=== PATIENT | female | born 1955 | race Caucasian/White ===

== ENCOUNTER 2018-01-15 16:42 | Inpatient (IN) ==
--- OUTSIDE RECORDS SUMMARY | 2018-01-15 17:12 | External Medical Summary | Encounter Summary ---
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) Radu Hankins MD Jewell, Andrea, MD Procedures bevacizumab (AVASTIN) [address] [place] [id number] Phone: Encounter Details Date Type Department Care Team Description 12/30/2017 [facility] - [address] [facility] [address] [facility] [address] [place] [address] [place] [address] [phone] Social History Tobacco Use Types Packs/Day Years Used Date Former Smoker Cigarettes 0.5 14 Quit: 05/01/2016 Smokeless Tobacco: Never Used Comments: Using nicorette Alcohol Use Drinks/Week oz/Week Comments No 0 Standard drinks or equivalent 0.0 Sex Assigned at Date Recorded Not on file as of this encounter Last Filed Vital Signs Vital Sign Reading Time Taken Blood Pressure 115/63 12/30/2017 11:06 AM CDT Pulse - - Temperature - - Respiratory Rate - - Oxygen Saturation - - Inhaled Oxygen Concentration - - Weight - - Height - - Body Mass Index - - in this encounter Functional Status Functional Status Response Date of Assessment Does the patient have a hearing impairment: No 07/04/2017 Does the patient have a visual impairment: Yes 07/04/2017 Does the patient have impaired ambulation: No 07/04/2017 Does the patient have an activity of daily living (ADL) No 07/04/2017 impairment: Does the patient have an instrumental activity of daily No 07/04/2017 living (IADL) impairment: Cognitive Status Response Date of Assessment Does the patient have a cognitive impairment: No 07/04/2017 as of this encounter Discharge Instructions Patient Instructions - Catherine Harper RN - 12/30/2017 11:22 AM CDTCall Immediately to report the following: Unexplained bleeding or bleeding that will not stop Difficulty swallowing Shortness of breath, wheezing, or trouble breathing Rapid, irregular heartbeat; chest pain Dizziness, lightheadedness Rash or cut that swells or turns red, feels hot or painful, or begin to ooze Diarrhea Uncontrolled nausea or vomiting Fever of 100.4 F or higher, or chills Important Phone Numbers: Cancer Center Main Number (answered 24 hours a day) [phone] Cancer Center Scheduling (appointments) [phone] Emergency Doctor [phone] Mobile Electronics Installer [phone] in this encounter Medications at Time of Discharge Medication Sig. Disp. Refills Start Date End Date amLODIPine (NORVASC) 5 mg Take 2 tablets by 90 tablet 1 09/02/2017 tabletIndications: mouth daily. At 1500 Malignant neoplasm of cervix, unspecified site (HCC) atenolol (TENORMIN) 50 mg Take 50 mg by mouth tablet daily. At 1500 clonazePAM (KLONOPIN) 0.5 Take 0.5 mg by mouth mg tablet twice daily as needed. dexamethasone (DECADRON) 4 Take 1 tablet by 30 tablet 5 07/15/2017 mg tabletIndications: mouth daily as Malignant neoplasm of needed. Take with exocervix (HCC) breakfast on Days 2 - 4 of each chemo cycle to prevent nausea/vomiting. diphenhydrAMINE/lidocaine/a Swish and Spit 30 mL 300 mL 0 07/15/2017 ntacid (#) (MAGIC by mouth as directed MOUTHWASH) 1:1:1 oral three times daily as suspensionIndications: needed for Mouth chemo-induced mucositis Pain. Indications: chemo-induced mucositis HYDROcodone/acetaminophen(+ Take 1 tablet by 90 tablet 0 11/04/2017 ) (NORCO) 10/325 mg mouth every 6 hours tabletIndications: as needed for Pain Malignant neoplasm of cervix, unspecified site (HCC) lidocaine-prilocaine (EMLA) Apply dime sized 30 g 3 07/14/2016 2.5-2.5 % topical cream amount topically to port 30 minutes prior to access. loperamide (IMODIUM A-D) 2 Take 2 mg by mouth mg capsule as Needed for Diarrhea. Take 2 capsules by mouth initially, followed by 1 capsule by mouth after each loose stool up to a maximum of 8 tablets in 24 hours. ondansetron (ZOFRAN) 8 mg Take 1 tablet by 30 tablet 5 07/15/2017 tabletIndications: mouth every 8 hours PREVENTION OF as needed for CHEMOTHERAPY-INDUCED NAUSEA Nausea. Indications: AND VOMITING PREVENTION OF CHEMOTHERAPY-INDUCED NAUSEA AND VOMITING prochlorperazine maleate Take 1 tablet by 60 tablet 5 07/15/2017 (COMPAZINE) 10 mg mouth every 6 hours tabletIndications: CANCER as needed for Nausea CHEMOTHERAPY-INDUCED NAUSEA or Vomiting. AND VOMITING Indications: CANCER CHEMOTHERAPY-INDUCED NAUSEA AND VOMITING ranitidine(+) (ZANTAC) 150 Take 150 mg by mouth mg tablet twice daily as needed for Heartburn. senna (SENOKOT) 8.6 mg Take 1-2 tablets by tablet mouth twice daily as needed for Constipation. THIOCTIC ACID (ALPHA LIPOIC Take 2 capsules by ACID(+)) 300 mg mouth twice daily. capIndications: PERIPHERAL Indications: NEUROPATHY PERIPHERAL NEUROPATHY traMADol (ULTRAM) 50 mg Take 2 tablets by 90 tablet 1 12/19/2017 tabletIndications: PAIN mouth every 6 hours as needed for Pain. as of this encounter Progress Notes Catherine Harper RN - 12/30/2017 10:41 AM CDTCHEMO NOTE Verified chemo consent signed and in chart. Verified initiate chemo order in O2 Blood return positive via: Port (Single and Accessed) BSA and dose double checked (agree with orders as written) with: yes Labs/applicable tests checked: UA Chemo regime: Drug/cycle/day Avastin IV C1 D1 Rate verified and armband double checkwith second RN: yes Patient education offered and stated understanding. Denies questions at this time. Port accessed per sterile technique, flushed with good blood return. Chemo consent signed on 09/23/17. Pt seen in exam by TYRELL Guillen, no new questions or concerns at this time. Pt has received avastin previously, is starting maintenance therapy. Pt tolerated avastin infusion without incident. Port flushed with good blood return and deaccessed. Pt denies need for AVS, left ambulatory at 1318.in this encounter Miscellaneous Notes Addendum Note - Radha Coffey - 12/30/2017 11:59 PM CDTEncounter addended by: Radha Coffey on: 01/06/2018 3:03 PM
Actions taken: Charge Capture section acceptedin this encounter Plan of Treatment Not on fileas of this encounter Results URINALYSIS DIPSTICK (12/30/2017 11:13 AM) Component Value Ref Range Color,UA YELLOW Turbidity,UA CLEAR CLEAR-CLEAR Specific Gilbert-Urine 1.015 1.003 - 1.035 pH,UA 5.0 5.0 - 8.0 Protein,UA 2+ (A) NEG-NEG Glucose,UA NEG NEG-NEG Ketones,UA NEG NEG-NEG Bilirubin,UA NEG NEG-NEG Blood,UA TRACE (A) NEG-NEG Urobilinogen,UA NORMAL NORM-NORMAL Nitrite,UA NEG NEG-NEG Leukocytes,UA TRACE (A) NEG-NEG Specimen Performing Laboratory Urine [facility] [address] [place] [address] in this encounter Visit Diagnoses Diagnosis Malignant neoplasm of exocervix (HCC) - Primary Malignant neoplasm of exocervix Administered Medications Inactive Administered Medications - up to 3 most recent administrations Medication Order MAR Action Action Date Dose Rate Site bevacizumab (AVASTIN) 850 mg Given - New Bag 12/30/2017 12:37 CDT 850 mg 268 mL/hr in sodium chloride 0.9% (NS) 134 mL IVPB 850 mg (rounded from 856.5 mg=15 mg/kg 57.1 kg Treatment plan recorded weight), Intravenous, 134 mL, Administer over 30 Minutes, ONCE, 1 dose, Tue12/30/17 at 1215, NOTE: This is a HIGH ALERT Medication. heparin lock flush PF syringe 500 Units Given 12/30/2017 13:15 CDT 500 Units 500 Units, Intravenous, ONCE, 1 dose, Tue12/30/17 at 1045, NOTE: This is a HIGH ALERT Medication. in this encounter
--- OUTSIDE RECORDS SUMMARY | 2018-01-15 17:12 | External Medical Summary | Encounter Summary ---
:1955 Author Organization [facility] Address [address] [place] [address] Care Team Providers Name Role Phone Lio Rios DO Primary Care Provider Encounter Details Date Type Department Care Team Description 12/20/2017 Orders Only XDD CANS VACUUM TESTER Radu Hankins MD [address] [place] [address] [phone] Social History Tobacco Use Types Packs/Day Years Used Date Former Smoker Cigarettes 0.5 14 Quit: 05/01/2016 Smokeless Tobacco: Never Used Comments: Using nicorette Alcohol Use Drinks/Week oz/Week Comments No 0 Standard drinks or equivalent 0.0 Sex Assigned at Date Recorded Not on file as of this encounter Functional Status Functional Status Response [...] impairment: No 07/04/2017 as of this encounter Plan of Treatment Not on fileas of this encounter Visit Diagnoses Not on filein this encounter
--- OUTSIDE RECORDS SUMMARY | 2018-01-15 17:12 | External Medical Summary | Encounter Summary ---
:1955 Author Organization [facility] Address [address] [place] [address] Care Team Providers Name Role Phone Lio Rios DO Primary Care Provider Reason for Visit Reason Comments Results Numbness Weakness Encounter Details Date Type Department Care Team Description 12/19/2017 [facility] Malignant neoplasm of cervix, unspecified site (HCC) (Primary Dx); [facility] Left foot drop; - WW Exam [address] Neurop[address] [place] [address] [phone] Social History Tobacco Use Types Packs/Day Years Used Date Former Smoker Cigarettes 0.5 14 Quit: 05/01/2016 Smokeless Tobacco: Never Used Comments: Using nicorette Alcohol Use Drinks/Week oz/Week Comments No 0 Standard drinks or equivalent 0.0 Sex Assigned at Date Recorded Not on file as of this encounter Last Filed Vital Signs Vital Sign Reading Time Taken Blood Pressure 165/65 12/19/2017 1:17 PM CDT Pulse 101 12/19/2017 1:17 PM CDT Temperature 36.6 C (97.8 F) 12/19/2017 1:17 PM CDT Respiratory Rate 16 12/19/2017 1:17 PM CDT Oxygen Saturation 100% 12/19/2017 1:17 PM CDT Inhaled Oxygen Concentration - - Weight 57.1 kg (125 lb 12.8 oz) 12/19/2017 1:17 PM CDT Height 162.6 cm (5' 4") 12/19/2017 1:17 PM CDT Body Mass Index 21.59 12/19/2017 1:17 PM CDT in this encounter Functional Status Functional Status [...] impairment: No 07/04/2017 as of this encounter Progress Notes Cesilia Ryan PA - 12/19/2017 1:00 PM CDTFormatting of this note may be different from the original. Subjective GYNECOLOGIC ONCOLOGY EVALUATION Name:Maryann Moreno Date: 12/19/17 Cancer Staging Cervical cancer (HCC) Staging form: Cervix Uteri, AJCC 7th Edition - Clinical: No stage assigned - Unsigned Referring Physician: Primary Care Physician: Lio Rios Chief Complaint: Chief Complaint Patient presents with Results Numbness Weakness History of Present Illness: Maryann Moreno is a 62 y.o. female Onc Timeline Maryann Moreno is a 62 y.o. female with Stage IVB cervical cancer. Pt is here for evaluation with Ct scan after six cycles of chemotherapy with Taxol, carbo and avastin. Pt continues to have mild left foot drop, effects her gait, numbness over the toes, B/L. Other shea no other symptoms. . Cervical cancer (HCC) 05/04/2016 Other c/o PMB and cramping for the last few weeks. Exam revealed spotting and enlarged uterus 05/11/2016 Imaging US impression multiple fibroids, endometrium not well seen, fluid measured 3mm , no adnexal masses are identified. 05/19/2016 Surgery Diagnostic D&C was preformed. Path revealed poorly differentiated carcinoma with squamous features, favor cervical primary over other sites. 05/24/2016 Biopsy Cervical biopsy taken in clinic. Path revealed high grade squamous intraepithelial neoplasia (focal severe squamous dysplasia in a background of mild to moderate dysplasia with koilocytosis, CIN1-3). No invasive neoplasm identified. Receiver Stocker Onc Dr. Olsen recommends radical hyst, BSO and pelvic lymphadenectomy vs pelvic radiation therapy. Patient left clinic to think about her options. 06/08/2016 Imaging .MRI - parametrial invasion, colleen mets and right anterior thight met PET CT - Extensive pelvic, retroperitoneal, retrocrural, and mediastinal lymphadenopathy.Anterior right thigh uptake. 06/09/2016 Initial Diagnosis Cervical cancer (HCC) 06/16/2016 Other Reviewed in tumor board: plan for cis/taxol/avastin followed by chemoradiation 2nd opinion at [facility] with similar recs for starting with systemic chemo. Did discuss carbo vs cisplatin and [facility] consider carbo Rather than cisplatin due to toxicity, but does not havea clinical efficiency preference of one over the other. 07/16/2016 - 10/29/2016 Chemotherapy cis/taxol/avastin C1 07/16/16, chemo complicated with mouth sores, completed C6 10/29/16 07/17/2016 Biopsy leg biopsy - Metastatic squamous cell carcinoma 09/16/2016 Imaging PET 09/16/16 - There has been significant improvement in FDG uptake in the cervix, now demonstrating a maximum SUV of 6.4, compared to 17.56 previously. There has also been significant interval improvement in size and FDG uptake involving retrocrural and several retroperitoneal lymph nodes, with resolution of additional retroperitoneal and pelvic lymph nodes. 11/30/2016 Imaging Recurrence #1: PET - recurrent retroperitoneal and retrocrural adenopathy with development of hypermetabolic lymph node to the left of the trachea at the level of the thoracic inlet concerning for regional and distant colleen metastatic disease, increased uptake in breast tissue 12/06/2016 - 01/27/2017 Radiation She went on to complete pelvic and para-aortic radiation to a dose of 45 Gy with boost to areas ofresidual colleen disease to 59 Gy. This was followed by tandem and ovoid brachytherapy (5.5 Gy x 5 fractions). She completed treatment on 01/27/17 07/22/2017 - 11/18/2017 Chemotherapy Taxol, carboplatin and Avastin, C1 on 07/22/2017, C2 on 08/12/2017, C3 on 09/02/2017, urine protein 2+, 24hr urine protein 238mg, C4 on 09/23/2017, C5 On ( taxol is held due to foot drop- subacute left peroneal neuropathy.There was no evidence that the weakness is related to a pelvic lesion or prior radiation exposure. Unclear if related to chemo. C6 on 11/18/2017 09/23/[address] - overall response 12/19/[address] scan- Unchanged left upper lobe pulmonary nodule since at least June 2016. This likely represents a noncalcified granuloma or scar. Continued attention on follow-up. No new pulmonary nodule is identified. Unchanged upper limits of normal sizeright hilar lymph node, which is likely reactive. No new thoracic lymphadenopathy. No abdominal/pelvic mass or lymphadenopathy. Chemotherapy Maintenance Avastin tentatively from 12/30/2017 Past Medical History: Past Medical History: Diagnosis Date Cervical cancer (HCC) Heartburn Hypertension Nausea related to radiation Past Surgical History: Past Surgical History: Procedure Laterality Date CHOLECYSTECTOMY BREAST REDUCTION 04/2016 CT INSERTION UTERINE TANDEM&/VAGINAL OVOIDS N/A 01/11/2017 BRACHYTHERAPY PELVIC ORGANS performed by Otis Tijreina MD at [facility]/Periop CT INSERTION UTERINE TANDEM&/VAGINAL OVOIDS N/A 01/27/2017 BRACHYTHERAPY TANDEM AND OVOID performed by Otis Tijerina MD at [facility]/ Periop CERVIX BIOPSY Medications: Current Outpatient Prescriptions: acyclovir (ZOVIRAX) 400 mg tablet, , Disp: , Rfl: 0 amLODIPine (NORVASC) 5 mg tablet, Take 2 tablets by mouth daily. At 1500 ( Patient taking differently: Take 7.5 mg by mouth daily. At 1400), Disp: 90 tablet, Rfl: 1 atenolol (TENORMIN) 50 mg tablet, Take 50 mg by mouth daily. At 1500, Disp : , Rfl: clonazePAM (KLONOPIN) 0.5 mg tablet, Take 0.5 mg by mouth at bedtime daily. , Disp: , Rfl: dexamethasone (DECADRON) 4 mg tablet, Take 1 tablet by mouth daily as needed. Take with breakfast on Days 2 - 4 of each chemo cycle to prevent nausea/ vomiting. (Patient taking differently: Take 4 mg by mouth. Take with breakfast on Days 2 - 4 of each chemo cycle to prevent nausea/vomiting.), Disp: 30 tablet , Rfl: 5 diphenhydrAMINE/lidocaine/antacid (#) (MAGIC MOUTHWASH) 1:1:1 oral suspension, Swish and Spit 30 mL by mouth as directed three times daily as needed for Mouth Pain. Indications: chemo-induced mucositis, Disp: 300 mL, Rfl: 0 HYDROcodone/acetaminophen(+) (NORCO) 10/325 mg tablet, Take 1 tablet by mouth every 6 hours as needed for Pain, Disp: 90 tablet, Rfl: 0 lidocaine-prilocaine (EMLA) 2.5-2.5 % topical cream, Apply dime sized amount topically to port 30 minutes prior to access., Disp: 30 g, Rfl: 3 loperamide (IMODIUM A-D) 2 mg capsule, Take 2 mg by mouth as Needed for Diarrhea. Take 2 capsules by mouth initially, followed by 1 capsule by mouth after each loose stool up to a maximum of 8 tablets in 24 hours., Disp: , Rfl: ondansetron (ZOFRAN) 8 mg tablet, Take 1 tablet by mouth every 8 hours as needed for Nausea. Indications: PREVENTION OF CHEMOTHERAPY-INDUCED NAUSEA AND VOMITING, Disp: 30 tablet, Rfl: 5 prochlorperazine maleate (COMPAZINE) 10 mg tablet, Take 1 tablet by mouth every 6 hours as needed for Nausea or Vomiting. Indications: CANCER CHEMOTHERAPY -INDUCED NAUSEA AND VOMITING, Disp: 60 tablet, Rfl: 5 ranitidine(+) (ZANTAC) 150 mg tablet, Take 150 mg by mouth twice daily as needed for Heartburn., Disp: , Rfl: senna (SENOKOT) 8.6 mg tablet, Take 1-2 tablets by mouth twice daily as needed for Constipation., Disp: , Rfl: THIOCTIC ACID (ALPHA LIPOIC ACID(+)) 300 mg cap, Take 2 capsules by mouth twice daily. Indications: PERIPHERAL NEUROPATHY, Disp: , Rfl: traMADol (ULTRAM) 50 mg tablet, Take 2 tablets by mouth every 6 hours as needed for Pain., Disp: 90 tablet, Rfl: 1 Allergies: Allergies Allergen Reactions Codeine SEE COMMENTS Pt states bad dreams and funny feeling Social History: Social History Social History Marital status: Single Spouse name: N/A Number of children: N/A Years of education: N/A Occupational History Not on file. Social History Main Topics Smoking status: Former Smoker Packs/day: 0.50 Years: 14.00 Types: Cigarettes Quit date: 05/01/2016 Smokeless tobacco: Never Used Comment: Using nicorette Alcohol use No Drug use: No Sexual activity: Not on file Other Topics Concern Not on file Social History Narrative No narrative on file Family History: Family History Problem Relation Age of Onset Cancer-Breast Sister 50 Ataxia Sister Hypertension Sister Cancer-Ovarian Maternal Grandmother Hypertension Mother Hypertension Father REVIEW OF SYSTEMS: CONSTITUTIONAL: per HPI EYES: per HPI ENT: per HPI RESPIRATORY: per HPI CARDIOVASCULAR: per HPI GI: per HPI : per HPI MUSCULO-SKELETAL: per HPI SKIN: per HPI ENDOCRINE: per HPI HEMATOLOGIC: per HPI ECOG 1 Pain Addressed:Prescription provided for pain management Physical Exam: BP 165/65 (BP Source: Arm, Left, Patient Position: Sitting) | Pulse 101 | Temp 36.6 C (97.8 F)(Oral) | Resp 16 | Ht 162.6 cm (64") | Wt 57.1 kg ( 125 lb 12.8 oz) | SpO2 100% | BMI 21.59 kg/m GENERAL APPEARANCE: Appears healthy. Alert; in no acute distress. Pleasant. SKIN: Skin color, texture, turgor normal. No rashes or lesions. HEENT: Unremarkable. No tenderness or masses noted. NECK: Neck supple. No tenderness. No adenopathy. LUNGS: Chest symmetrical. Good diaphragmatic excursion. Lungs clear; normal breath sounds. CARDIOVASCULAR: RRR. Heart sounds normal. ABDOMEN: Abdomen soft, non-tender. No masses, organomegaly, or hernia. No clinical evidence of ascites. PELVIC: External genitalia- no lesions seen, urethral meatus, urethra, bladder normal. Vagina-with out lesions ,masses or bleeding. Cervix- anterior lip seen due to vaginal wall agglutination, with out lesions, uterus normal size, adnexae not palpable. Bimanual and rectovaginal exam without massesor nodularity on the pelvic floor Exam chaperoned by nurse EXTREMITIES: Extremities - no extension of th efirst toe on the left foot, No joint deformities, edema, or skin discoloration. LYMPH NODES: No palpable supraclavicular or inguinal lymph nodes. CBC w/Diff Lab Results Component Value Date/Time WBC 7.9 12/19/2017 09:40 AM RBC 3.16 (L) 12/19/2017 09:40 AM HGB 12.3 12/19/2017 09:40 AM HCT 34.5 (L) 12/19/2017 09:40 AM MCV 109.3 (H) 12/19/2017 09:40 AM MCH 39.1 (H) 12/19/2017 09:40 AM MCHC 35.8 12/19/2017 09:40 AM RDW 13.9 12/19/2017 09:40 AM PLTCT 161 12/19/2017 09:40 AM MPV 7.5 12/19/2017 09:40 AM Lab Results Component Value Date/Time NEUT 74 12/19/2017 09:40 AM ANC 5.90 12/19/2017 09:40 AM LYMA 14 (L) 12/19/2017 09:40 AM ALC 1.10 12/19/2017 09:40 AM KARAN 9 12/19/2017 09:40 AM AMC 0.70 12/19/2017 09:40 AM EOSA 2 12/19/2017 09:40 AM AEC 0.10 12/19/2017 09:40 AM BASA 1 12/19/2017 09:40 AM ABC 0.10 12/19/2017 09:40 AM Comprehensive Metabolic Profile Lab Results Component Value Date/Time NA 137 12/19/2017 09:40 AM K 3.3 (L) 12/19/2017 09:40 AM CL 104 12/19/2017 09:40 AM CO2 26 12/19/2017 09:40 AM GAP 7 12/19/2017 09:40 AM BUN 12 12/19/2017 09:40 AM CR 0.75 12/19/2017 09:40 AM GLU 160 (H) 12/19/2017 09:40 AM Lab Results Component Value Date/Time CA 9.4 12/19/2017 09:40 AM ALBUMIN 4.0 12/19/2017 09:40 AM TOTPROT 6.7 12/19/2017 09:40 AM ALKPHOS 100 12/19/2017 09:40 AM AST 12 12/19/2017 09:40 AM ALT 6 (L) 12/19/2017 09:40 AM TOTBILI 0.2 (L) 12/19/2017 09:40 AM GFR >60 12/19/2017 09:40 AM GFRAA >60 12/19/2017 09:40 AM Other labs No results found for: ESR No results found for: LDH ASSESSMENT/PLAN:Maryann Moreno is a 62 y/o woman with recurrent, Stage IV B cervical cancer. No evidence of disease on exam, Ct scan, at th e end of six cycle of chemotherapy. Vaginal wall agglutination- recommended she use vaginal dilators 2-3 times a wk. Reviewed labs with her and a copy given to her. Discussed Ct scan and answered all her questions Hypokalemia- encouraged her to increase potassium rich foods in diet and use gatorade Pt needs dental work done , recommendations that she should schedule it just before a cycle. she lives 2 and half hrs but still interested to come here for treatments. Pt likes to do urine dipstick locally so that we can decide if she can get treatment, otherwise she will be travelling for nothing, orders for urine dipstick given to her Monitor for signs of recurrence, abdominal bloating, pain, pelvic pain, nausea and vomiting, bleeding from vagina, blood in the stool or urine, irregular bowel movement. Discussed healthy life style, whole grain foods and whole foods and five servings of fruits and vegetables. Exercise-Intentional exercise, 30mt/day for 5 days a wk. Update on immunization Screening for breast cancer with MMG, colon cancer with colonoscopy, osteoporosis with bone density. Regular f/u with PCP RV prior to C1 avastin on 12/30/2017(pt is going on vacation for 1 wk and likes start after it.) repeat CBC and CMP prior to C1 Thank you for allowing me to participate in the care of Maryann Ryan, MS,PA-C Supervising physician: Dr. Radu Hankins Gynecology Oncology [facility] [address] [place] [address] Nurse line: [phone] in this encounter Plan of Treatment Scheduled Tests Name Priority Associated Diagnoses Order Schedule URINALYSIS DIPSTICK Routine Malignant neoplasm of Every 3 weeks for 12 cervix, unspecified site Occurrences starting ([facility]) 12/19/2017 until 12/19/2018 COMPREHENSIVE METABOLIC Routine Malignant neoplasm of Expected: 12/19/2017 PANEL cervix, unspecified site (Approximate), Expires: ([facility]) 12/19/2018 CBC AND DIFF Routine Malignant neoplasm of Expected: 12/19/2017 cervix, unspecified site (Approximate), Expires: ([facility]) 12/19/2018 as of this encounter Visit Diagnoses Diagnosis Malignant neoplasm of cervix, unspecified site ([facility]) - Primary Left foot drop Other acquired deformity of ankle and foot Neuropathy Mononeuritis of unspecified site
--- OUTSIDE RECORDS SUMMARY | 2018-01-15 17:12 | External Medical Summary | Clinical Summary ---
:1955 Author Organization [facility] Address [address] [place] [address] Care Team Providers Name Role Phone Lio Rios DO Primary Care Provider Source Comments Some departments are not documenting in the electronic medical record. If you do not see the information that you expected, contact Release of Information in the Health Information Management department at [phone] for further assistance in locating additional records.[facility] Allergies Active Allergy Reactions Severity Noted Date Comments Codeine SEE COMMENTS Low 07/09/2016 Pt states bad dreams and funny feeling Current Medications Prescription Sig. Disp. Refills Start Date End Date Status atenolol (TENORMIN) Take 50 mg by Active 50 mg tablet mouth daily. At 1500 clonazePAM (KLONOPIN) Take 0.5 mg by Active 0.5 mg tablet mouth twice daily as needed. lidocaine-prilocaine Apply dime 30 g 3 07/14/2016 Active (EMLA) 2.5-2.5 % sized amount topical cream topically to port 30 minutes prior to access. senna (SENOKOT) 8.6 Take 1-2 Active mg tablet tablets by mouth twice daily as needed for Constipation. ranitidine(+) Take 150 mg by Active (ZANTAC) 150 mg mouth twice tablet daily as needed for Heartburn. loperamide (IMODIUM Take 2 mg by Active A-D) 2 mg capsule mouth as Needed for Diarrhea. Take 2 capsules by mouth initially, followed by 1 capsule by mouth after each loose stool up to a maximum of 8 tablets in 24 hours. THIOCTIC ACID (ALPHA Take 2 capsules Active LIPOIC ACID(+)) 300 by mouth twice mg capIndications: daily. PERIPHERAL NEUROPATHY Indications: PERIPHERAL NEUROPATHY dexamethasone Take 1 tablet 30 tablet 5 07/15/2017 Active (DECADRON) 4 mg by mouth daily tabletIndications: as needed. Take Malignant neoplasm of with breakfast exocervix (HCC) on Days 2 - 4 of each chemo cycle to prevent nausea/vomiting . prochlorperazine Take 1 tablet 60 tablet 5 07/15/2017 Active maleate (COMPAZINE) by mouth every 10 mg 6 hours as tabletIndications: needed for CANCER Nausea or CHEMOTHERAPY-INDUCED Vomiting. NAUSEA AND VOMITING Indications: CANCER CHEMOTHERAPY-IN DUCED NAUSEA AND VOMITING ondansetron (ZOFRAN) Take 1 tablet 30 tablet 5 07/15/2017 Active 8 mg by mouth every tabletIndications: 8 hours as PREVENTION OF needed for CHEMOTHERAPY-INDUCED Nausea. NAUSEA AND VOMITING Indications: PREVENTION OF CHEMOTHERAPY-IN DUCED NAUSEA AND VOMITING diphenhydrAMINE/lidoc Swish and Spit 300 mL 0 07/15/2017 Active anjali/antacid (#) 30 mL by mouth (MAGIC MOUTHWASH) as directed 1:1:1 oral three times suspensionIndications daily as needed : chemo-induced for Mouth Pain. mucositis Indications: chemo-induced mucositis amLODIPine (NORVASC) Take 2 tablets 90 tablet 1 09/02/2017 Active 5 mg by mouth daily. tabletIndications: At 1500 Malignant neoplasm of cervix, unspecified site (HCC) HYDROcodone/acetamino Take 1 tablet 90 tablet 0 11/04/2017 Active phen(+) (NORCO) by mouth every 10/325 mg 6 hours as tabletIndications: needed for Pain Malignant neoplasm of cervix, unspecified site (HCC) traMADol (ULTRAM) 50 Take 2 tablets 90 tablet 1 12/19/2017 Active mg tabletIndications: by mouth every PAIN 6 hours as needed for Pain. acyclovir (ZOVIRAX) 0 10/27/2017 12/31/19 Discontinued 400 mg tablet 18 traMADol (ULTRAM) 50 Take 2 tablets 90 tablet 0 12/14/2017 12/20/19 Discontinued mg tabletIndications: by mouth every 18 PAIN 6 hours as needed for Pain. Active Problems Problem Noted Date Slow transit constipation 08/06/2016 Neuropathy 08/06/2016 Cervical cancer (HCC) 06/09/2016 Overview: History of Present Illness: Maryann Moreno is a 61 y.o. female with Stage IVB cervical cancer. 05/04/16 patient presented to [facility] c/o PMB and cramping for the last few weeks. Exam revealed spotting and enlarged uterus. 05/11/16 US impression multiple fibroids, endometrium not well seen, fluid measured 3mm, no adnexal masses are identified. 05/11/16 f/u with [facility]. Discussed need for biopsy and treatment for fibroids including possible hyst and BSO. Patient not in favor of 2 procedure so a RALH/BSO scheduled with frozen D&C. 05/19/16 Diagnostic D&C was preformed. Path revealed poorly differentiated carcinoma with squamous features, favor cervical primary over other sites. 05/24/16 patient referred to [facility]. Cervical biopsy taken in clinic. Path revealed high grade squamous intraepithelial neoplasia (focal severe squamous dysplasia in a background of mild to moderate dysplasia with koilocytosis, CIN1-3). No invasive neoplasm identified. [facility]. Olsen recommends radical hyst, BSO and pelvic lymphadenectomy vs pelvic radiation therapy. Patient left clinic to think about her options. MRI 06/08/16 - parametrial invasion, colleen mets and right anterior thight met PET CT - Extensive pelvic, retroperitoneal, retrocrural, and mediastinal lymphadenopathy Reviewed in tumor board: plan for cis/taxol/avastin followed by chemoradiation. Presents 10/29/16 prior to C6D1 of Cisplatin, Taxol and Avastin chemotherapy. Labs reviewed and exam performed. Will need appointment with Dr. Tijerina for radiation therapy. CT C/A/P with lydia aldana at tumor board for possible Rad/Hyst vs. chemoradiation. Last Assessment & Plan: 1. Ms. Moreno is a 61 yo female with stage IVB cervical cancer. 2. Presents prior to C6 of Cisplatin/Taxol/Avastin. 3. Exam and labs today. Proceed with treatment. 4. Plan is to repeat CT C/A/P 11/10/16 and present case to tumor board . Will notify of results. 5. Rad/onc referral for the week of 11/15/16. Aware this is tentative and we can cancel if decision is for rad/hyst. 6. Call/RTC pending tumor board discussion. Resolved Problems Problem Noted Date Resolved Date Hematuria 08/06/2016 12/19/2017 Encounters Date Type Specialty Care Team Description 12/30/2017 Hospital Encounter Oncology Cesilia Ryan PA 12/30/2017 Office Visit Oncology Cesilia Ryan PA Malignant neoplasm of cervix, unspecified site (HCC) (Primary Dx) 12/20/2017 Orders Only Radu Hankins MD 12/19/2017 Office Visit Oncology Cesilia Ryan PA Malignant neoplasm of cervix, unspecified site (HCC) (Primary Dx); Left foot drop; Neuropathy 12/19/2017 Hospital Encounter Radiology Radu Hankins MD 12/19/2017 Hospital Encounter Radiology Cesilia Ryan PA 12/14/2017 Refill Oncology Radu Hankins MD Malignant neoplasm of cervix, unspecified site (HCC) 11/18/2017 Hospital Encounter Oncology Radu Hankins MD 11/18/2017 Hospital Encounter Lab Radu Hankins MD 11/17/2017 Telephone Oncology Radu Hankins MD Results (labs) 11/14/2017 Orders Only Oncology Radu Hankins MD 11/11/2017 Telephone Oncology Radu Hankins MD Appointment Request 11/10/2017 Procedure Pass Radiology 11/10/2017 Procedure Pass Radiology 11/10/2017 Orders Only Oncology Radu Hankins MD Malignant neoplasm of cervix, unspecified site (HCC) (Primary Dx) 11/10/2017 Telephone Oncology Radu Hankins MD Results (platelet count) 11/10/2017 Telephone Neurology Farmakidis, General Question MD Eliceo 11/09/2017 Telephone Oncology Radu Hankins MD Medication Refill (needs tramadol sent to pharmacy) 11/04/2017 Office Visit Oncology Radu Hankins MD Malignant neoplasm of cervix, unspecified site (HCC) (Primary Dx) 11/04/2017 Nurse Only Oncology Radu Hankins MD Malignant neoplasm of exocervix (HCC) (Primary Dx) 11/04/2017 Telephone Oncology Radu Hankins MD Heme/Onc Care (left without getting pot deaccessed) 11/01/2017 Orders Only Oncology Karly Zuluaga, PHARMD 10/31/2017 Orders Only Oncology Radu Hankins MD 10/27/2017 Telephone Oncology Radu Hankins MD Medication Refill 10/21/2017 Clinical Support Neurology Lashaun, Neuropathy (HCC); MD Eliceo Left foot drop 10/21/2017 Office Visit Neurology Radu Hankins MD History of left foot drop (Primary Dx); Lashaun, Neuropathy (HCC); MD Eliceo Malignant neoplasm of exocervix (HCC) 10/20/2017 Documentation Oncology Opat, Angelica 10/19/2017 Documentation Oncology Opat, Angelica from Last 3 Months Family History Medical History Relation Name Comments Hypertension Father Cancer-Ovarian Maternal Grandmother Hypertension Mother Ataxia Sister Cancer-Breast Sister Hypertension Sister Relation Name Status Comments Father Maternal Grandmother Mother Sister breast Social History Tobacco Use Types Packs/Day Years Used Date Former Smoker Cigarettes 0.5 14 Quit: 05/01/2016 Smokeless Tobacco: Never Used Tobacco Cessation: Ready to Quit: Yes Comments: Using nicorette Alcohol Use Drinks/Week oz/Week Comments No 0 Standard drinks or equivalent 0.0 Sex Assigned at Date Recorded Not on file Last Filed Vital Signs Vital Sign Reading Time Taken Blood Pressure 115/63 12/30/2017 11:06 AM CDT Pulse 78 12/30/2017 9:35 AM CDT Temperature 36.4 C (97.5 F) 12/30/2017 9:35 AM CDT Respiratory Rate 16 12/30/2017 9:35 AM CDT Oxygen Saturation 100% 12/30/2017 9:35 AM CDT Inhaled Oxygen Concentration - - Weight 56.3 kg (124 lb 3.2 oz) 12/30/2017 9:35 AM CDT Height 166.4 cm (5' 5.5") 12/30/2017 9:35 AM CDT Body Mass Index 20.35 12/30/2017 9:35 AM CDT Plan of Treatment Health Maintenance Due Date Last Done Comments HEPATITIS C SCREENING 1955 PHYSICAL (COMPREHENSIVE) EXAM 12/31/1962 PERTUSSIS VACCINE 12/31/1966 HIV SCREENING 12/31/1970 TETANUS VACCINE 12/31/1972 CERVICAL CANCER SCREENING 12/31/1985 BREAST CANCER SCREENING 1996 COLORECTAL CANCER SCREENING 12/31/2005 SHINGLES VACCINE 2016 INFLUENZA VACCINE 05/01/2018 Implants Implanted Type Area [employer] Of [employer] Device Identifier Expiration Model / Date Serial / Lot Port Pwkeshva Salazar 8fr Sngl Lumn Cath - S. Right: CR BARD:ACCESS [id number] 06/28/2017 [id number] / Implanted: Qty: 1 on 07/08/2016 by Howard Waterman MD Chest SYS . / [id number] Results URINALYSIS DIPSTICK (12/30/2017 11:13 AM)Only the most recent of3 resultswithin the time period is included. Component Value Ref Range Color,UA YELLOW Turbidity,UA CLEAR CLEAR-CLEAR Specific [place]-Urine 1.015 1.003 - 1.035 pH,UA 5.0 5.0 - 8.0 Protein,UA 2+ (A) NEG-NEG Glucose,UA NEG NEG-NEG Ketones,UA NEG NEG-NEG Bilirubin,UA NEG NEG-NEG Blood,UA TRACE (A) NEG-NEG Urobilinogen,UA NORMAL NORM-NORMAL Nitrite,UA NEG NEG-NEG Leukocytes,UA TRACE (A) NEG-NEG Specimen Performing Laboratory Urine [facility] [address] [place] [address] CT ABD/PELV W CONTRAST (12/19/2017 10:09 AM) Specimen Performing Laboratory [facility] RESULTS Impressions CHEST: 1. Unchanged left upper lobe pulmonary nodule since at least June 2016. This likely represents a noncalcified granuloma or scar. Continued attention on follow-up. No new pulmonary nodule is identified. 2. Unchanged upper limits of normal size right hilar lymph node, which is likely reactive. No new thoracic lymphadenopathy. 3. Mild emphysema. ABDOMEN AND PELVIS: No abdominal/pelvic mass or lymphadenopathy. By my electronic signature, I attest that I have personally reviewed the images for this examination and formulated the interpretations and opinions expressed in this report Finalized by Benito Thorpe D.O. on 12/19/2017 11:38 AM. Dictated by Daryl Stephens M.D. on 12/19/2017 10:[address] CHEST, ABDOMEN AND PELVIS Clinical Indication:Female, 62 years old. Malignant neoplasm of cervix, unspecified site. Technique: Multiple contiguous axial images were obtained through the chest, abdomen and pelvis following the administration of IV contrast material. Portal venous phase of postcontrast imaging was obtained. Post processing coronal and sagittal reconstruction images were made from the axial images. IV contrast: Isovue-370 Bowel contrast:Water Comparison: CT chest, abdomen/pelvis could very 2017 CHEST FINDINGS: Lower Neck: Unchanged low-density lesion in the left lobe of thyroid. Additional tiny low density lesions are noted within the right lobe of thyroid. Axilla, Mediastinum and Desi: Unchanged upper limits of normal size right hilar lymph node. No new or enlarging thoracic lymph nodes. Heart and Great Vessels: Heart is normal in size without pericardial effusion. Thoracic aorta is normal in caliber. Right IJ chest port in unchanged position. Airway, Lungs and Pleura: Central airways are patent. Mild emphysema. Unchanged left upper lobe pulmonary nodule measuring 0.8 cm (series 2 image 27), previously 0.8 cm. Calcified granuloma in the right middle lobe. No pleural effusion. No new or enlarging pulmonary nodules identified Chest Wall and Osseous Structures: Thoracic spondylosis. No destructive osseous lesion. ABDOMEN AND PELVIS FINDINGS: Liver and Biliary system: Liver is normal in size. Scattered low-density lesions throughout the right hepatic lobe, which are too small to characterize. Major portal veins are patent. Gallbladder surgically absent. Mild to moderate intra and extrahepatic biliary ductal dilation is redemonstrated and is not significantly changed from the prior study. Spleen: Unremarkable. Adrenal Glands and Kidneys: Adrenal glands and left kidney are unremarkable. Scattered right renal cortical scarring. Pancreas and Retroperitoneum: Moderate pancreatic atrophy. No retroperitoneal lymphadenopathy. Stable stranding within the central retroperitoneum likely representing post therapeutic scarring and sites of treated colleen metastatic disease. Aorta and Major Vessels: Abdominal aorta is normal in caliber with mild aortobiiliac calcified atherosclerosis. Bowel, Mesentery and Peritoneal space: Large and small bowel are normal in caliber. No bowel obstruction. No abdominal ascites. No free air. Pelvis: Urinary bladder is mildly distended. Uterus is atrophic with calcified uterine fibroids. No pelvic lymphadenopathy. Abdominal wall and Osseous Structures: Lumbar spondylosis with grade 1 anterolisthesis of L4 on L5. No destructive osseous lesion. Procedure Note Interface, Radiant Results - 12/19/2017 11:[address] CHEST, ABDOMEN AND PELVIS Clinical Indication: Female, 62 years old. Malignant neoplasm of cervix, unspecified site. Technique: Multiple contiguous axial images were obtained through the chest, abdomen and pelvis following the administration of IV contrast material. Portal venous phase of postcontrast imaging was obtained. Post processing coronal and sagittal reconstruction images were made from the axial images. IV contrast: Isovue-370 Bowel contrast: Water Comparison: CT chest, abdomen/pelvis could very 2017 CHEST FINDINGS: Lower Neck: Unchanged low-density lesion in the left lobe of thyroid. Additional tiny low density lesions are noted within the right lobe of thyroid. Axilla, Mediastinum and Desi: Unchanged upper limits of normal size right hilar lymph node. No new or enlarging thoracic lymph nodes. Heart and Great Vessels: Heart is normal in size without pericardial effusion. Thoracic aorta is normal in caliber. Right IJ chest port in unchanged position. Airway, Lungs and Pleura: Central airways are patent. Mild emphysema. Unchanged left upper lobe pulmonary nodule measuring 0.8 cm (series 2 image 27) , previously 0.8 cm. Calcified granuloma in the right middle lobe. No pleural effusion. No new or enlarging pulmonary nodules identified Chest Wall and Osseous Structures: Thoracic spondylosis. No destructive osseous lesion. ABDOMEN AND PELVIS FINDINGS: Liver and Biliary system: Liver is normal in size. Scattered low-density lesions throughout the right hepatic lobe, which are too small to characterize. Major portal veins are patent. Gallbladder surgically absent. Mild to moderate intra and extrahepatic biliary ductal dilation is redemonstrated and is not significantly changed from the prior study. Spleen: Unremarkable. Adrenal Glands and Kidneys: Adrenal glands and left kidney are unremarkable. Scattered right renal cortical scarring. Pancreas and Retroperitoneum: Moderate pancreatic atrophy. No retroperitoneal lymphadenopathy. Stable stranding within the central retroperitoneum likely representing post therapeutic scarring and sites of treated colleen metastatic disease. Aorta and Major Vessels: Abdominal aorta is normal in caliber with mild aortobiiliac calcified atherosclerosis. Bowel, Mesentery and Peritoneal space: Large and small bowel are normal in caliber. No bowel obstruction. No abdominal ascites. No free air. Pelvis: Urinary bladder is mildly distended. Uterus is atrophic with calcified uterine fibroids. No pelvic lymphadenopathy. Abdominal wall and Osseous Structures: Lumbar spondylosis with grade 1 anterolisthesis of L4 on L5. No destructive osseous lesion. IMPRESSION CHEST: 1. Unchanged left upper lobe pulmonary nodule since at least June 2016. This likely represents a noncalcified granuloma or scar. Continued attention on follow-up. No new pulmonary nodule is identified. 2. Unchanged upper limits of normal size right hilar lymph node, which is likely reactive. No new thoracic lymphadenopathy. 3. Mild emphysema. ABDOMEN AND PELVIS: No abdominal/pelvic mass or lymphadenopathy. By my electronic signature, I attest that I have personally reviewed the images for this examination and formulated the interpretations and opinions expressed in this report Finalized by Benito Thorpe D.O. on 12/19/2017 11:38 AM. Dictated by Daryl Stephens M.D. on 12/19/2017 10:[address] CHEST W CONTRAST (12/19/2017 10:09 AM) Specimen Performing Laboratory [facility] RESULTS Impressions CHEST: 1. Unchanged left upper lobe pulmonary nodule since at least June 2016. This likely represents a noncalcified granuloma or scar. Continued attention on follow-up. No new pulmonary nodule is identified. 2. Unchanged upper limits of normal size right hilar lymph node, which is likely reactive. No new thoracic lymphadenopathy. 3. Mild emphysema. ABDOMEN AND PELVIS: No abdominal/pelvic mass or lymphadenopathy. By my electronic signature, I attest that I have personally reviewed the images for this examination and formulated the interpretations and opinions expressed in this report Finalized by Benito Thorpe D.O. on 12/19/2017 11:38 AM. Dictated by Daryl Stephens M.D. on 12/19/2017 10:[address] CHEST, ABDOMEN AND PELVIS Clinical Indication:Female, 62 years old. Malignant neoplasm of cervix, unspecified site. Technique: Multiple contiguous axial images were obtained through the chest, abdomen and pelvis following the administration of IV contrast material. Portal venous phase of postcontrast imaging was obtained. Post processing coronal and sagittal reconstruction images were made from the axial images. IV contrast: Isovue-370 Bowel contrast:Water Comparison: CT chest, abdomen/pelvis could very 2017 CHEST FINDINGS: Lower Neck: Unchanged low-density lesion in the left lobe of thyroid. Additional tiny low density lesions are noted within the right lobe of thyroid. Axilla, Mediastinum and Desi: Unchanged upper limits of normal size right hilar lymph node. No new or enlarging thoracic lymph nodes. Heart and Great Vessels: Heart is normal in size without pericardial effusion. Thoracic aorta is normal in caliber. Right IJ chest port in unchanged position. Airway, Lungs and Pleura: Central airways are patent. Mild emphysema. Unchanged left upper lobe pulmonary nodule measuring 0.8 cm (series 2 image 27), previously 0.8 cm. Calcified granuloma in the right middle lobe. No pleural effusion. No new or enlarging pulmonary nodules identified Chest Wall and Osseous Structures: Thoracic spondylosis. No destructive osseous lesion. ABDOMEN AND PELVIS FINDINGS: Liver and Biliary system: Liver is normal in size. Scattered low-density lesions throughout the right hepatic lobe, which are too small to characterize. Major portal veins are patent. Gallbladder surgically absent. Mild to moderate intra and extrahepatic biliary ductal dilation is redemonstrated and is not significantly changed from the prior study. Spleen: Unremarkable. Adrenal Glands and Kidneys: Adrenal glands and left kidney are unremarkable. Scattered right renal cortical scarring. Pancreas and Retroperitoneum: Moderate pancreatic atrophy. No retroperitoneal lymphadenopathy. Stable stranding within the central retroperitoneum likely representing post therapeutic scarring and sites of treated colleen metastatic disease. Aorta and Major Vessels: Abdominal aorta is normal in caliber with mild aortobiiliac calcified atherosclerosis. Bowel, Mesentery and Peritoneal space: Large and small bowel are normal in caliber. No bowel obstruction. No abdominal ascites. No free air. Pelvis: Urinary bladder is mildly distended. Uterus is atrophic with calcified uterine fibroids. No pelvic lymphadenopathy. Abdominal wall and Osseous Structures: Lumbar spondylosis with grade 1 anterolisthesis of L4 on L5. No destructive osseous lesion. Procedure Note Interface, Radiant Results - 12/19/2017 11:[address] CHEST, ABDOMEN AND PELVIS Clinical Indication: Female, 62 years old. Malignant neoplasm of cervix, unspecified site. Technique: Multiple contiguous axial images were obtained through the chest, abdomen and pelvis following the administration of IV contrast material. Portal venous phase of postcontrast imaging was obtained. Post processing coronal and sagittal reconstruction images were made from the axial images. IV contrast: Isovue-370 Bowel contrast: Water Comparison: CT chest, abdomen/pelvis could very 2017 CHEST FINDINGS: Lower Neck: Unchanged low-density lesion in the left lobe of thyroid. Additional tiny low density lesions are noted within the right lobe of thyroid. Axilla, Mediastinum and Desi: Unchanged upper limits of normal size right hilar lymph node. No new or enlarging thoracic lymph nodes. Heart and Great Vessels: Heart is normal in size without pericardial effusion. Thoracic aorta is normal in caliber. Right IJ chest port in unchanged position. Airway, Lungs and Pleura: Central airways are patent. Mild emphysema. Unchanged left upper lobe pulmonary nodule measuring 0.8 cm (series 2 image 27) , previously 0.8 cm. Calcified granuloma in the right middle lobe. No pleural effusion. No new or enlarging pulmonary nodules identified Chest Wall and Osseous Structures: Thoracic spondylosis. No destructive osseous lesion. ABDOMEN AND PELVIS FINDINGS: Liver and Biliary system: Liver is normal in size. Scattered low-density lesions throughout the right hepatic lobe, which are too small to characterize. Major portal veins are patent. Gallbladder surgically absent. Mild to moderate intra and extrahepatic biliary ductal dilation is redemonstrated and is not significantly changed from the prior study. Spleen: Unremarkable. Adrenal Glands and Kidneys: Adrenal glands and left kidney are unremarkable. Scattered right renal cortical scarring. Pancreas and Retroperitoneum: Moderate pancreatic atrophy. No retroperitoneal lymphadenopathy. Stable stranding within the central retroperitoneum likely representing post therapeutic scarring and sites of treated colleen metastatic disease. Aorta and Major Vessels: Abdominal aorta is normal in caliber with mild aortobiiliac calcified atherosclerosis. Bowel, Mesentery and Peritoneal space: Large and small bowel are normal in caliber. No bowel obstruction. No abdominal ascites. No free air. Pelvis: Urinary bladder is mildly distended. Uterus is atrophic with calcified uterine fibroids. No pelvic lymphadenopathy. Abdominal wall and Osseous Structures: Lumbar spondylosis with grade 1 anterolisthesis of L4 on L5. No destructive osseous lesion. IMPRESSION CHEST: 1. Unchanged left upper lobe pulmonary nodule since at least June 2016. This likely represents a noncalcified granuloma or scar. Continued attention on follow-up. No new pulmonary nodule is identified. 2. Unchanged upper limits of normal size right hilar lymph node, which is likely reactive. No new thoracic lymphadenopathy. 3. Mild emphysema. ABDOMEN AND PELVIS: No abdominal/pelvic mass or lymphadenopathy. By my electronic signature, I attest that I have personally reviewed the images for this examination and formulated the interpretations and opinions expressed in this report Finalized by Benito Thorpe D.O. on 12/19/2017 11:38 AM. Dictated by Daryl Stephens M.D. on 12/19/2017 10:21 AM. CBC AND DIFF (12/19/2017 9:40 AM)Only the most recent of3 resultswithin the time period is included. Component Value Ref Range White Blood Cells 7.9 4.5 - 11.0 K/UL RBC 3.16 (L) 4.0 - 5.0 M/UL Hemoglobin 12.3 12.0 - 15.0 GM/DL Hematocrit 34.5 (L) 36 - 45 % MCV 109.3 (H) 80 - 100 FL MCH 39.1 (H) 26 - 34 PG MCHC 35.8 32.0 - 36.0 G/DL RDW 13.9 11 - 15 % Platelet Count 161 150 - 400 K/UL MPV 7.5 7 - 11 FL Neutrophils 74 41 - 77 % Lymphocytes 14 (L) 24 - 44 % Monocytes 9 4 - 12 % Eosinophils 2 0 - 5 % Basophils 1 0 - 2 % Absolute Neutrophil Count 5.90 1.8 - 7.0 K/UL Absolute Lymph Count 1.10 1.0 - 4.8 K/UL Absolute Monocyte Count 0.70 0 - 0.80 K/UL Absolute Eosinophil Count 0.10 0 - 0.45 K/UL Absolute Basophil Count 0.10 0 - 0.20 K/UL Specimen Performing Laboratory Blood [facility] [address] [place] [address] COMPREHENSIVE METABOLIC PANEL (12/19/2017 9:40 AM)Only the most recent of3 resultswithin the time period is included. Component Value Ref Range Sodium 137 137 - 147 MMOL/L Potassium 3.3 (L) 3.5 - 5.1 MMOL/L Chloride 104 98 - 110 MMOL/L Glucose 160 (H) 70 - 100 MG/DL Blood Urea Nitrogen 12 7 - 25 MG/DL Creatinine 0.75 0.4 - 1.00 MG/DL Calcium 9.4 8.5 - 10.6 MG/DL Total Protein 6.7 6.0 - 8.0 G/DL Total Bilirubin 0.2 (L) 0.3 - 1.2 MG/DL Albumin 4.0 3.5 - 5.0 G/DL Alk Phosphatase 100 25 - 110 U/L AST (SGOT) 12 7 - 40 U/L CO2 26 21 - 30 MMOL/L ALT (SGPT) 6 (L) 7 - 56 U/L Anion Gap 7 3 - 12 eGFR Non >60 >60 mL/min Comment: The eGFR is not validated for use in drug dosing adjustments.Continue to use estimated creatinine clearance per dosing reference text.Please contact the Clinical Pharmacist for questions. eGFR >60 >60 mL/min Comment: The eGFR is not validated for use in drug dosing adjustments.Continue to use estimated creatinine clearance per dosing reference text.Please contact the Clinical Pharmacist for questions. Specimen Performing Laboratory Blood [facility] [address] [place] [address] EMG ORDER (10/21/2017)Only the most recent of2 resultswithin the time period is included. Specimen Performing Laboratory IN CLINIC from Last 3 Months
--- OUTSIDE RECORDS SUMMARY | 2018-01-15 17:12 | External Medical Summary | Encounter Summary ---
:1955 Author Organization [facility] Address [address] [place] [address] Care Team Providers Name Role Phone Lio Rios DO Primary Care Provider Encounter Details Date Type Department Care Team Description 12/19/2017 [facility] [address] [facility] [address] [facility] [address] [place] [address] [place] [address] [phone] Social History Tobacco Use Types Packs/Day Years [...] impairment: No 07/04/2017 as of this encounter Medications at Time of Discharge Medication Sig. Disp. Refills Start Date End Date amLODIPine (NORVASC) 5 mg Take 2 tablets by 90 tablet 1 09/02/2017 tabletIndications: mouth daily. At Malignant neoplasm of 1500 cervix, unspecified site (HCC) atenolol (TENORMIN) 50 mg Take 50 mg by mouth tablet daily. At 1500 clonazePAM (KLONOPIN) 0.5 Take 0.5 mg by mg tablet mouth twice daily as needed. dexamethasone (DECADRON) 4 Take 1 tablet by 30 tablet 5 07/15/2017 mg tabletIndications: mouth daily as Malignant neoplasm of needed. Take with exocervix (HCC) breakfast on Days 2 - 4 of each chemo cycle to prevent nausea/vomiting. diphenhydrAMINE/lidocaine/ Swish and Spit 30 300 mL 0 07/15/2017 antacid (#) (MAGIC mL by mouth as MOUTHWASH) 1:1:1 oral directed three suspensionIndications: times daily as chemo-induced mucositis needed for Mouth Pain. Indications: chemo-induced mucositis HYDROcodone/acetaminophen( Take 1 tablet by 90 tablet 0 11/04/2017 +) (NORCO) 10/325 mg mouth every 6 hours tabletIndications: as needed for Pain Malignant neoplasm of cervix, unspecified site (HCC) lidocaine-prilocaine Apply dime sized 30 g 3 07/14/2016 (EMLA) 2.5-2.5 % topical amount topically to cream port 30 minutes prior to access. loperamide [...] hours PREVENTION OF as needed for CHEMOTHERAPY-INDUCED Nausea. NAUSEA AND VOMITING Indications: PREVENTION OF CHEMOTHERAPY-INDUCE D NAUSEA AND VOMITING prochlorperazine maleate Take 1 tablet by 60 tablet 5 07/15/2017 (COMPAZINE) 10 mg mouth every 6 hours tabletIndications: CANCER as needed for CHEMOTHERAPY-INDUCED Nausea or Vomiting. NAUSEA AND VOMITING Indications: CANCER CHEMOTHERAPY-INDUCE D NAUSEA AND VOMITING ranitidine(+) (ZANTAC) 150 Take 150 mg by mg tablet mouth twice daily as needed for Heartburn. senna (SENOKOT) 8.6 mg Take 1-2 tablets by tablet mouth twice daily as needed for Constipation. THIOCTIC ACID (ALPHA Take 2 capsules by LIPOIC ACID(+)) 300 mg mouth twice daily. capIndications: PERIPHERAL Indications: NEUROPATHY PERIPHERAL NEUROPATHY traMADol (ULTRAM) 50 mg Take 2 tablets by 90 tablet 1 12/19/2017 tabletIndications: PAIN mouth every 6 hours as needed for Pain. acyclovir (ZOVIRAX) 400 mg 0 10/27/2017 12/30/2017 tablet as of this encounter Plan of Treatment Not on fileas of this encounter Visit Diagnoses Not on filein this encounter
--- OUTSIDE RECORDS SUMMARY | 2018-01-15 17:12 | External Medical Summary | Encounter Summary ---
:1955 Author Organization [facility] Address [address] [place] [address] Care Team Providers Name Role Phone Lio Rios DO Primary Care Provider Reason for Visit Reason Comments Heme/Onc Care Chemotherapy Encounter Details Date Type Department Care Team Description 12/30/2017 Office Visit [facility] Cesilia Ryan, Malignant neoplasm of [facility] [place] cervix, unspecified - [facility] Exam [address] (HCC) (Primary [address] [facility] [address] [place] [address] [phone] Social History Tobacco Use Types Packs/Day Years Used Date Former Smoker Cigarettes 0.5 14 Quit: 05/01/2016 Smokeless Tobacco: Never Used Comments: Using nicorette Alcohol Use Drinks/Week oz/Week Comments No 0 Standard drinks or equivalent 0.0 Sex Assigned at Date Recorded Not on file as of this encounter Last Filed Vital Signs Vital Sign Reading Time Taken Blood Pressure 141/69 12/30/2017 9:35 AM CDT Pulse 78 12/30/2017 9:35 AM [...] Mass Index 20.35 12/30/2017 9:35 AM CDT in this encounter Functional Status Functional [...] encounter Progress Notes Cesilia Ryan PA - 12/30/2017 9:00 AM CDTFormatting of this note may be different from the original. Subjective GYNECOLOGIC ONCOLOGY EVALUATION Name:Maryann Moreno Date: 01/09/18 Cancer Staging Cervical cancer ([facility]) Staging form: Cervix Uteri, AJCC 7th Edition - Clinical: No stage assigned - Unsigned Referring Physician: Primary Care Physician: Lio Rios Chief Complaint: Chief Complaint Patient presents with Heme/Onc Care Chemotherapy History of Present Illness: Maryann Moreno is a 63 y.o. female Onc Timeline Maryann Moreno is a 62 y.o. female with Stage IVB cervical cancer. Pt is here for evaluation prior to C1 of maintainance avastinC1 today. Pt continues to have mild left foot drop, effects her gait, numbness over the toes, B/L. Other shea no other symptoms. Gynecology oncologist: Dr. 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 No invasive neoplasm identified. [facility] Onc Dr. Olsen recommends radical hyst, BSO [...] cis/taxol/avastin followed by chemoradiation 2nd opinion at [facility] with similar recs for starting with systemic chemo. Did discuss carbo vs cisplatin and [facility] consider carbo Rather than cisplatin [...] thoracic lymphadenopathy. No abdominal/pelvic mass or lymphadenopathy. 12/30/2017 - Chemotherapy Maintenance Avastin tentatively from 12/30/2017 Past Medical History: Past Medical History: Diagnosis Date Cervical cancer (HCC) Heartburn Hypertension Nausea related to radiation Past Surgical History: Past Surgical History: Procedure Laterality Date CHOLECYSTECTOMY BREAST REDUCTION 04/2016 TX INSERTION UTERINE TANDEM&/VAGINAL OVOIDS N/A 01/11/2017 BRACHYTHERAPY PELVIC ORGANS performed by Otis Tijerina MD at [facility]Periop TX INSERTION UTERINE TANDEM&/VAGINAL OVOIDS N/A 01/27/2017 BRACHYTHERAPY TANDEM AND OVOID performed by Otis Tijerina MD at [facility]/ Periop CERVIX BIOPSY Medications: Current Outpatient Prescriptions: amLODIPine (NORVASC) 5 mg tablet, Take 2 tablets by mouth daily. At 1500 ( Patient taking differently: Take 7.5 mg by mouth daily. At 1400), Disp: 90 tablet, Rfl: 1 atenolol (TENORMIN) 50 mg tablet, Take 50 mg by mouth daily. At 1500, Disp : , Rfl: clonazePAM (KLONOPIN) 0.5 mg tablet, Take 0.5 mg by mouth twice daily as needed., Disp: , Rfl: dexamethasone (DECADRON) 4 mg [...] HPI HEMATOLOGIC: per HPI ECOG 1 Pain Addressed:N/A Physical Exam: BP 141/69 (BP Source: Arm, Left, Patient Position: Sitting) | Pulse 78 | Temp 36.4 C (97.5 F) (Oral) | Resp 16 | Ht 166.4 cm (65.5") | Wt 56.3 kg (124 lb 3.2 oz) | SpO2 100% | BMI 20.35 kg/m GENERAL APPEARANCE: Appears healthy. Alert; in [...] or hernia. No clinical evidence of ascites. EXTREMITIES: Extremities normal. No joint deformities, edema, or skin discoloration. Station and gait normal. LYMPH NODES: No palpable supraclavicular or inguinal [...] No results found for: LDH ASSESSMENT/PLAN:Maryann Moreno with Stage IV B cervical cancer. On exam- pt is doing well, okay to go ahead with avastin today, mild elevation of BP but pt informs at home its always in the normal range. And she is taking HTN meds regularly Mild hypokalemia in the last labs - encouraged her to increase potassium rich foods in diet and willrepeat CMP and CBC at the next visit Monitor for signs of recurrence, abdominal bloating, [...] bone density. Regular f/u with PCP RV in 3 wks for next cycle Thank you for allowing me to participate in the care of Maryann Moreno Cesilia Ryan, MS,PA-C Supervising physician: Dr. Radu Hankins Gynecology Oncology [facility] [address] [place] [address] Nurse line: [phone] in this encounter Plan of Treatment Not on fileas of this encounter Visit Diagnoses Diagnosis Malignant neoplasm of cervix, unspecified site (HCC) - Primary
--- OUTSIDE RECORDS SUMMARY | 2018-01-15 17:13 | External Medical Summary | Encounter Summary ---
:1955 Author Organization [facility] Address [address] [place] [address] Care Team Providers Name Role Phone Lio Rios DO Primary Care Provider Reason for Referral Radiology Services Status Reason Specialty Diagnoses / Referred By Referred To Procedures Contact Contact New Request Radiology Diagnoses Malignant neoplasm of cervix, unspecified site (HCC) Radu Hankins MD Procedures CT ABD/PELV W CONTRAST [address] [facility] [address] [place] [address] Radiology Services Status Reason Specialty Diagnoses / Referred By Referred To Procedures Contact Contact New Request Radiology Diagnoses Malignant neoplasm of cervix, unspecified site (HCC) Radu Hankins MD Procedures CT ABD/PELV W CONTRAST [address] [facility] [address] [place] [address] Radiology Services Status Reason Specialty Diagnoses / Referred By Referred To Procedures Contact Contact No Auth Needed Radiology Diagnoses Malignant neoplasm of cervix, unspecified site (HCC) Radu Hankins Ww Ct Procedures CT CHEST W CONTRAST CHG CT ABDOMEN & PELVIS W/CONTRAST MATERIAL MD Graciela ROBERTS [address] [facility] [address] [place] [phone] Phone: Radiology Services Status Reason Specialty Diagnoses / Referred By Referred To Procedures Contact Contact No Auth Needed Radiology Diagnoses Malignant neoplasm of cervix, unspecified site (HCC) Radu Hankins Ww Ct Procedures CT CHEST W CONTRAST CHG CT ABDOMEN & PELVIS W/CONTRAST MATERIAL MD Graciela ROBERTS [address] [facility] [address] [place] [address] Phone: Reason for Visit Radiology Services Status Reason Specialty Diagnoses / Referred By Referred To Procedures Contact Contact No Auth Needed Radiology Diagnoses Malignant neoplasm of cervix, unspecified site (HCC) Radu Hankins Ww Ct Procedures CT CHEST W CONTRAST CHG CT ABDOMEN & PELVIS W/CONTRAST MATERIAL MD Graciela ROBERTS [address] [facility] [address] [place] [address] Phone: Encounter Details Date Type Department Care Team Description 12/19/2017 Hospital Encounter [facility] Radu Hankins MD [facility] [address] [place] [address] [address] [facility] [id number] [place] [address] [phone] Social History Tobacco Use Types Packs/Day Years [...] Not on fileas of this encounter Results CT ABD/PELV W CONTRAST (12/19/2017 10:09 AM) [...] Daryl Stephens M.D. on 12/19/2017 10:21 AM. COMPREHENSIVE METABOLIC PANEL (12/19/2017 9:40 AM) Component Value Ref Range Sodium 137 137 [...] Pharmacist for questions. Specimen Performing Laboratory Blood [facility] [address] [place] [address] CBC AND DIFF (12/19/2017 9:40 AM) Component Value Ref Range White Blood Cells [...] - 0.20 K/UL Specimen Performing Laboratory Blood [facility] [address] [place] [address] in this encounter Visit Diagnoses Diagnosis Malignant neoplasm of cervix, unspecified site (HCC) Administered Medications Inactive Administered Medications - up to 3 most recent administrations Medication Order MAR Action Action Date Dose Rate Site iopamidol 370 (ISOVUE-370) injection Given 12/19/2017 09:45 CDT 100 mL 100 mL 100 mL, Intravenous, ONCE, 1 dose, 12/19/17 at 0945, NOTE: This is a HIGH ALERT Medication. sodium chloride PF 0.9% injection 50 mL Given 12/19/2017 09:45 CDT 50 mL 50 mL, Intravenous, ONCE, 1 dose, 12/19/17 at 0945, Intra-procedure (IR) in this encounter
--- OUTSIDE RECORDS SUMMARY | 2018-01-15 17:13 | External Medical Summary | Encounter Summary ---
:1955 Author Organization [facility] Address [address] [place] [address] Care Team Providers Name Role Phone Lio Rios DO Primary Care Provider Encounter Details Date Type Department Care Team Description 11/14/2017 Orders Only [facility] Radu Hankins MD [facility] - [facility] Exam [address] [facility] [address] [address] [place] [address] [place] [address] [phone] Social History Tobacco Use Types Packs/Day Years [...]
--- OUTSIDE RECORDS SUMMARY | 2018-01-15 17:13 | External Medical Summary | Encounter Summary ---
:1955 Author Organization [facility] Address [address] [place] [address] Care Team Providers Name Role Phone Lio Rios DO Primary Care Provider Reason for Visit Reason Comments Heme/Onc Care D1C6 Avastin and Carbo Treatment (Routine) Status Reason Specialty Diagnoses / Procedures Referred By Contact Referred To Contact Closed Oncology Diagnoses Malignant neoplasm of exocervix (HCC) Radu Hankins MD Jewell, Andrea, MD Procedures CARBOPLATIN + PACLITAXEL + BEVACIZUMAB [address] [place] [address] Encounter Details Date Type Department Care Team Description 11/18/2017 Hospital Encounter The Radu Xiong MD [facility] - [address] WW Treatment [address] [place], [place] [address] [facility] [address] [address] [place] [address] [phone] Social History Tobacco Use Types Packs/Day Years Used Date Former Smoker Cigarettes 0.5 14 Quit: 05/01/2016 Smokeless Tobacco: Never Used Comments: Using nicorette Alcohol Use Drinks/Week oz/Week Comments No 0 Standard drinks or equivalent 0.0 Sex Assigned at Date Recorded Not on file as of this encounter Last Filed Vital Signs Vital Sign Reading Time Taken Blood Pressure 124/61 11/18/2017 11:57 AM CDT Pulse 79 11/18/2017 11:57 AM CDT Temperature 36.6 C (97.9 F) 11/18/2017 11:57 AM CDT Respiratory Rate - - Oxygen Saturation 97% 11/18/2017 11:57 AM CDT Inhaled Oxygen Concentration - - Weight 58.3 kg (128 lb 9.6 oz) 11/18/2017 11:57 AM CDT Height - - Body Mass Index 22.07 11/18/2017 11:57 AM CDT in this encounter Functional Status [...] this encounter Discharge Instructions Patient Instructions - Marilu Morales RN - 11/18/2017 3:18 PM [facility] Chemotherapy Instructions Maryann Moreno 11/18/2017 Chemotherapy Drugs: Scheduled Medications: Other: As Needed Medications: Other: Call Immediately to report the following: Unexplained bleeding [...] Main Number (answered 24 hours a day) [phone] Cancer Center Scheduling (appointments) [phone] Sheeter Operator [phone] Director Of Rehabilitative Services [phone] DEHYDRATION Everything in the body contains fluid (water). The human body must have a certain amount of liquid, and reduced amounts of fluid in the body can cause changes in how a person feels. Fluid balance meansthat the body's fluids are properly regulated and in the right places. Swelling is too much water inthe body. Dehydration is not having enough water in the body or not having enough fluid where it is needed in the body. What to look for Dry mouth, thirst Dizziness, weakness, constipation Dry food is hard to swallow Dry or sticky tissues in the mouth make it hard to talk Dry skin, skin that "tents" (stays up) when lightly pinched Swollen, cracked, or dry tongue Fever (see section on fever) Weight loss Little or no urine Fatigue Sunken eyeballs What the patient can do Drink fluids. Sometimes iced fluids are easier. Remember that food contains fluid. Try to eat fruits, vegetables, soups, gelatins, popsicles, andother moist foods. Apply lotion often to soften dry skin. Try to get rid of the cause of dehydration, such as vomiting, diarrhea or fever. Apply lubricant to lips to avoid painful cracking. If it is tiring to get up, fill a small cooler with ice and small cans of juice or bottled water and keep it next to you. Use ice chips to relieve dry mouth if you can't drink enough liquid. What caregivers can do Offer cold or cool liquids, every hour or so. Encourage small meals if patient can eat. Include moist foods, soups, and fruit smoothies (made with ice in a nurse reviewer) as snacks. Watch urine output to see if it gets dark or the patient stops urinating. Check with the patient often to be sure that he or she hasn't become confused. Stand by when he or she gets up, in case of dizziness or fainting. Call the doctor if the patient: has vomiting, diarrhea, or fever that lasts for more than 24 hours has urine that is either very dark in color or in a small amount, or if there is no urine for 12 hours or more becomes dizzy or feels faint when standing up becomes disoriented or confused [employer] www.cancer.org FATIGUE Fatigue is when a person has less energy to do the things he or she normally does, or wants to do. Fatigue is the most common side effect of cancer treatment. This fatigue is different from that of everyday life. Fatigue related to cancer treatment can appear suddenly and can be overwhelming. It is not relieved by rest. It can last for months after treatment ends. This type of fatigue can affect manyaspects of a persons life, including the ability to do his usual activities. Cancer fatigue is real and should not be ignored. It can be worse when a person is dehydrated, anemic, in pain, not sleeping well, or has an infection. Recent studies have shown that exercise programs during treatment can help reduce fatigue. What to Look For Feeling like you have no energy Sleeping more than normal Not wanting to or not being able to do normal activities Less attention to personal appearance Feeling tired even after sleeping Trouble thinking or concentrating Trouble finding words and speaking What the Patient Can Do Balance rest and activities. Tell the doctor if youre not able to get around as well as usual. Plan your important activities for when you have the most energy. Schedule important activities throughout the day rather than all at once. Get enough rest and sleep. Short naps and rest breaks may be needed. Remember that fatigue caused by treatment is short-term and that energy will slowly get better after treatment has ended. Ask others to help you by cooking meals and doing housework, yard work, and errands. Eat a balanced diet that includes protein (meat, eggs, cheese, and legumes such as peas and beans) and drink about 8 to 10 glasses of water a day, unless your care team gives you other instructions. What Caregivers Can Do Help schedule friends and family members to prepare meals, clean house, do yard work, or run errands for the patient. Try not to push the patient to do more than he or she is able. Help the patient to set up a routine for activities during the day. Call the doctor if the patient: is too tired to get out of bed for more than a 24-hour period becomes confused has fatigue that keeps getting worse feels out of breath or has a racing heart after just a little activity [employer] www.cancer.org INFECTION/FEVER Fever is a body temperature of more than 100.5F taken by mouth that lasts for 1 or more days. Fever is usually caused by an infection. Infections can be viral (in which case the symptoms can be treated even though there may be no treatment for the cause), or they can be bacterial or fungal (in whichcase medicines may be prescribed after the infection is diagnosed). Other causes include inflammatory illness, drug reactions, or tumor growth. Sometimes, the cause may not be known. In an infection, the fever is a result of the body "heating up" to try to kill any invading germs. A fever is an important natural defense against germs. People getting chemo are more likely to have infections because they have lower numbers of the whiteblood cells needed to fight them. It is good to have an easy -to-read, easy-to-use, oral (by mouth) thermometer so you can check your body temperature. What to look for Increased skin temperature Feeling warm Feeling tired Headache Feeling cold Body aches Skin rashes Shaking chills Any new area of redness or swelling Pus or yellowish discharge from an injury or other location New cough or shortness of breath New abdominal pain Burning or pain when urinating Sore throat The patient is confused, doesnt know where he or she is, becomes forgetful , or isnt making sense (see section on confusion) What the patient can do If you start feeling warm or cold, check your temperature by mouth every 2 to 3 hours. If unable to hold the thermometer in your mouth, put it under your armpit. Keep a record of temperature readings. Drink a lot of liquids (water, fruit juices, cola, popsicles, and soups). Get enough rest. Cover yourself with a blanket if chilly. Cover yourself only with a sheet if hot. Use a cold compress on the forehead if hot. Take acetaminophen (Tylenol) or other medicines for fever only if your doctor tells you to do so. What caregivers can do Watch for shaking chills, and check the patient's temperature after the shaking stops. Check temperature by placing the thermometer in mouth or under armpit. (Do not take temperature rectally unless the doctor tells you it's okay.) Encourage visitors who have fevers or the flu to visit the patient by phone until they are well again. Offer extra fluids and snacks. Help the patient take medicines on schedule. Call the doctor if the patient if the patient is confused, doesnt know where he or she is, becomes forgetful, or isnt making sense. Call the doctor if the patient: has a temperature of 100.5F or higher, taken by mouth has 2 or more of the symptoms listed under What to look for has fever lasting for more than 24 hours has shaking chills cannot take fluids [employer] www.cancer.org Nausea and Vomiting Nausea is having a sick or queasy feeling in the stomach, and vomiting is throwing up food or liquids from the stomach. Nausea can occur even when a person is not thinking about food. A person can vomit even if he or she has not eaten anything and hasnt had any nausea. Nausea or vomiting can be caused by eating something that disagrees with you, bacteria in food, infections, or by the radiation orchemo treatments for cancer. But many people have little or no nausea and vomiting with these treatments. For others, just thinking about going for one of the treatments can cause nausea or vomiting. Cancer by itself may cause nausea and vomiting. Frequent vomiting can be dangerous because it can lead to dehydration. It can also cause choking or inhaling food or liquids. Talk with your doctor about what is causing your nausea and vomiting and what you can do about it. What to look for Changes in eating habits Foul mouth odor Yellow or green foul-smelling fluids on bedclothes Feeling queasy or stomach upset Increased saliva, clamminess, and sweating may come before vomiting What the patient can do For nausea: Eat bland foods, such as dry toast and crackers. If the nausea only happens between meals, eat frequent, small meals and have a snack at bedtime. Drink clear liquids served cold and sipped slowly. (Clear liquids are those that you can see through, such as sonia apolonia, apple juice, broth, tea, etc.) Also try popsicles or gelatin. Seek out the foods you like. Many people develop a dislike for red meat and meat broths during treatment. Try other protein sources such as fish, chicken, beans, and nuts. Suck on hard candy with pleasant smells, such as lemon drops or mints, to help get rid of bad tastes. Eat food cold or at room temperature to decrease its smell and taste. Avoid fatty, fried, spicy, or very sweet foods. Try small amounts of foods high in calories that are easy to eat (pudding, ice cream, sherbets, yogurt, milkshakes) several times a day. Use butter, oils, syrups, sauces, and milk in foods to raise calories. Avoid low-fat foods unless fats upset your stomach or cause other problems. Tart or sour foods may be easier to keep down (unless you have mouth sores). Try to rest quietly while sitting upright for at least an hour after each meal. Distract yourself with soft music, a favorite television program, or the company of others. If you have nausea, relax and take slow deep breaths. Tell your doctor about the nausea because there are several drugs that can help it. Take your anti-nausea medicine at the first signs of nausea to help prevent vomiting. If nausea occurs just before chemo or doctor visits, ask about medicines, hypnosis, relaxation orbehavioral treatment to lessen this problem. For vomiting: If you are in bed, lie on your side so that vomit will not be inhaled. Request that medicines be prescribed in suppository form, if possible. Take medicine at the firsthint of nausea to prevent vomiting. Try liquids in the form of ice chips or frozen juice chips that can be taken slowly. After vomiting stops, begin by taking in 1 teaspoon of cool liquid every 10 minutes. Gradually increase to 1 tablespoon every half hour. If you are able to keep that down after an hour or so, try larger amounts. What caregivers can do Make meals or ask others to make meals during times the patient is nauseated. Use kitchen vent fans to reduce smells. Cover or remove foods with strong or unpleasant smells. Try plastic forks and spoons rather than metal ones, which may cause a bitter taste. If the patient starts vomiting, weigh him or her at the same time each day, to help decide whether dehydration is getting severe. Talk to the doctor about medicines to help prevent vomiting. Watch the patient for dizziness, weakness, or confusion. Try to help the patient avoid constipation and dehydration. Either of these can make nausea worse. Call the doctor if the patient: may have inhaled some of the vomited material vomits more than 3 times an hour for 3 or more hours vomits blood or material that looks like coffee grounds cannot take in more than 4 cups of liquid or ice chips in a day or cannot eat substantial foods for more than 2 days cannot take his or her medicines becomes weak, dizzy, or confused loses 2 or more lbs in 1 to 2 days (This means he or she is losing too much water.) develops dark yellow urine, and doesnt have to urinate as often as usual [employer] www.cancer.org in this encounter Medications at Time of [...] daily. capIndications: PERIPHERAL Indications: NEUROPATHY PERIPHERAL NEUROPATHY acyclovir (ZOVIRAX) 400 mg 0 10/27/2017 12/30/2017 tablet traMADol (ULTRAM) 50 mg Take 2 tablets by 90 tablet 0 10/14/20172017 tabletIndications: PAIN mouth every 6 hours as needed for Pain. as of this encounter Progress Notes Marilu Morales RN - 11/18/2017 4:02 PM CDTCHEMO NOTE Verified chemo consent signed and in chart. Verified initiate chemo order in O2 Blood return positive via: Port (Single and Accessed) BSA and dose double checked (agree with orders as written) with: yes See MAR for dual RN sign-off Labs/applicable tests checked: CBC and Comprehensive Metabolic Panel (CMP) Chemo regime: Drug/cycle/day: D1C6 Avastin and Carbo Rate verified and armband double checkwith second RN: yes Patient education offered and stated understanding. Denies questions at this time. Patient here for Avastin and Carboplatin. Patient reports she is doing well and denies any new issues or concerns. PAC accessed in lab; flushed well with positive blood return noted. Copy of labs reviewed and given to patient. Premeds and pre-hydration given per MAR. Patient tolerated Avastin and Carboplatin without issue. PAC de-accessed per protocol. Patient left ambulatory with in good condition all questions and concerns addressed. in this encounter Miscellaneous Notes Addendum Note - Angie Majano - 11/18/2017 11:59 PM CDTEncounter addended by: Angie Majano on: 11/24/2017 6:41 AM
Actions taken: Charge Capture section acceptedin this encounter Plan of Treatment Not on fileas of this encounter Visit Diagnoses Diagnosis Malignant neoplasm of exocervix (HCC) Malignant neoplasm of exocervix Administered Medications Inactive Administered Medications - up to 3 most recent administrations Medication Order MAR Action Action Date Dose Rate Site bevacizumab (AVASTIN) 900 Given - New Bag 11/18/2017 13:43 CDT 900 mg 272 mL /hr mg in sodium chloride 0.9% (NS) 136 mL IVPB 900 mg (rounded from 888 mg=15 mg/kg 59.2 kg Treatment plan recorded weight), Intravenous, 136 mL, Administer over 30 Minutes, ONCE, 1 dose, Tue11/18/17 at 1315, Administer first. NOTE: This is a HIGH ALERT Medication. CARBOplatin (PARAPLATIN) 503 Given - New Bag 11/18/2017 14:20 CDT 503 mg 600.6 mL/hr mg in sodium chloride 0.9% (NS) 300.3 mL IVPB (AUC-GOG) 503 mg (Target AUC=5), Intravenous, 300.3 mL, Administer over 0.5 Hours, ONCE, 1 dose, Tue11/18/17 at 1345, Administer after Paclitaxel. NURSING: To be administered by Chemotherapy Competency-validated nurse. NOTE: This is a HIGH ALERT Medication. SPECIAL TUBING REQUIRED dexamethasone (DECADRON) tablet 12 mg Given 11/18/2017 12:22 CDT 12 mg 12 mg, Oral, ONCE, 1 dose, Tue11/18/17 at 1215 diphenhydrAMINE (BENADRYL) capsule 50 mg Given 11/18/2017 12:22 CDT 50 mg 50 mg, Oral, ONCE, 1 dose, Tue11/18/17 at 1215 famotidine (PEPCID) tablet 20 mg Given 11/18/2017 12:22 CDT 20 mg 20 mg, Oral, ONCE, 1 dose, Tue11/18/17 at 1215 heparin lock flush PF syringe 500 Units Given 11/18/2017 15:30 CDT 500 Units 500 Units, Intravenous, ONCE, 1 dose, Tue11/18/17 at 1430, NOTE: This is a HIGH ALERT Medication. palonosetron(+) (ALOXI) injection 0.25 mg Given 11/18/2017 12:28 CDT 0.25 mg 0.25 mg, Intravenous, ONCE, 1 dose, Tue11/18/17 at 1215 sodium chloride 0.9 % Given - New Bag 11/18/2017 12:23 CDT 500 mL 500 mL/hr infusion 500 mL, 500 mL, Intravenous, at 500 mL/hr, ONCE, 1 dose, Tue11/18/17 at 1215, Administer prior to chemotherapy. NOTE: Administer premedications or antiemetics concurrently with IV fluids. sodium chloride 0.9% (NS) 500 mL Given - New Bag 11/18/2017 14:20 CDT 500 mL/hr with potassium chloride 10 mEq, magnesium sulfate 2 g IV infusion 500 mL, Intravenous, at 500 mL/hr, ONCE, 1 dose, Tue11/18/17 at 1345, Administer post-hydration concurrently with Carboplatin. in this encounter
--- OUTSIDE RECORDS SUMMARY | 2018-01-15 17:13 | External Medical Summary | Encounter Summary ---
:[address] [facility] Address [address] [place] [address] [place] [address] Care Team Providers Name Role Phone Lio Rios DO Primary Care Provider Encounter Details Date Type Department Care Team Description 11/18/2017 Hospital Encounter The Radu Xiong MD [facility] - [address] [facility] [address] Lab Level 3 [address] [place], [place] [address] [address] [place] [address] [phone] Social History Tobacco Use Types Packs/Day Years [...] needed for Pain. as of this encounter Plan of Treatment Not on fileas of this encounter Results URINALYSIS DIPSTICK (11/18/2017 11:26 AM) Component Value Ref Range Color,UA YELLOW Turbidity,UA CLEAR CLEAR-CLEAR Specific [place]-Urine 1.025 1.003 - 1.035 pH,UA 5.5 5.0 - 8.0 Protein,UA 2+ (A) NEG-NEG Glucose,UA NEG NEG-NEG Ketones,UA NEG NEG-NEG Bilirubin,UA NEG NEG-NEG Blood,UA 1+ (A) NEG-NEG Urobilinogen,UA NORMAL NORM-NORMAL Nitrite,UA NEG NEG-NEG Leukocytes,UA TRACE (A) NEG-NEG Specimen Performing Laboratory Urine [facility] [address] [place] [address] COMPREHENSIVE METABOLIC PANEL (11/18/2017 11:26 AM) Component Value Ref Range Sodium 136 (L) 137 - 147 MMOL/L Potassium 3.9 3.5 - 5.1 MMOL/L Chloride 104 98 - 110 MMOL/L Glucose 130 (H) 70 - 100 MG/DL Blood Urea Nitrogen 17 7 - 25 MG/DL Creatinine 0.73 0.4 - 1.00 MG/DL Calcium 9.1 8.5 - 10.6 MG/DL Total Protein 6.3 6.0 - 8.0 G/DL Total Bilirubin 0.3 0.3 - 1.2 MG/DL Albumin 3.7 3.5 - 5.0 G/DL Alk Phosphatase 90 25 - 110 U/L AST (SGOT) 14 7 - 40 U/L CO2 27 21 - 30 MMOL/L ALT (SGPT) 9 7 - 56 U/L Anion Gap 5 3 - 12 eGFR Non >60 >60 [...] Specimen Performing Laboratory Blood [facility] [address] [place] [address] CBC AND DIFF (11/18/2017 11:26 AM) Component Value Ref Range White Blood Cells 5.4 4.5 - 11.0 K/UL RBC 3.06 (L) 4.0 - 5.0 M/UL Hemoglobin 11.4 (L) 12.0 - 15.0 GM/DL Hematocrit 33.3 (L) 36 - 45 % MCV 108.7 (H) 80 - 100 FL MCH 37.2 (H) 26 - 34 PG MCHC 34.3 32.0 - 36.0 G/DL RDW 16.8 (H) 11 - 15 % Platelet Count 178 150 - 400 K/UL MPV 7.3 7 - 11 FL Neutrophils 72 41 - 77 % Lymphocytes 15 (L) 24 - 44 % Monocytes 12 4 - 12 % Eosinophils 1 0 - 5 % Basophils 0 0 - 2 % Absolute Neutrophil Count 3.90 1.8 - 7.0 K/UL Absolute Lymph Count 0.80 (L) 1.0 - 4.8 K/UL Absolute Monocyte Count 0.60 0 - 0.80 K/UL Absolute Eosinophil Count 0.10 0 - 0.45 K/UL Absolute Basophil Count 0.00 0 - 0.20 K/UL Specimen Performing Laboratory Blood [facility] [address] [place] [address] in this encounter Visit Diagnoses Diagnosis Malignant neoplasm of exocervix (HCC) Malignant neoplasm of exocervix
--- OUTSIDE RECORDS SUMMARY | 2018-01-15 17:13 | External Medical Summary | Encounter Summary ---
:1955 Author Organization [facility] Address [address] [place] [address] Care Team Providers Name Role Phone Lio Rios DO Primary Care Provider Reason for Visit Reason Comments Appointment Request Encounter Details Date Type Department Care Team Description 11/11/2017 Telephone [facility] Radu Hankins MD Appointment Request Cancer Center - Exam [address] [facility] [address] [place] [address] [phone] Social History Tobacco Use Types Packs/Day Years [...] impairment: No 07/04/2017 as of this encounter Miscellaneous Notes Telephone Encounter - Rose Myers - 11/11/2017 10:34 AM CDT----- Message from Karen Hahn RN sent at 11/10/2017 1:36 PM CDT ----- Diagnosis code (ICD10): c53.9 Ordering Doctor/SUSANNE: Noni Return susanne Can be with either noni or GIOVANNI on a tuesday or Tuesday that noni is in clinic Nurse draw or phlebotomy draw: Nurse Draw Imaging: Yes prior to rtc at least 3 weeks after c6 Follow up appointment: yes 3-wk after C6 Treatment Date to start: 11/18/17 Cycle: c6 needs labs before tx Drug:carbo & avastin Has the patient been contacted about this appointment? Yes Comments for appointment: cancel tx scheduled for 11/11/17, she is being delayed a week. Per orders above, treatment rescheduled on 11/18, lab, Ct, and return visit scheduled on 12/19. Patient verbalized understanding of appointment dates and times.in this encounter Plan of Treatment Not on fileas of this encounter Visit Diagnoses Not on filein this encounter
--- OUTSIDE RECORDS SUMMARY | 2018-01-15 17:13 | External Medical Summary | Encounter Summary ---
:1955 Author Organization [facility] Address [address] [place] [address] Care Team Providers Name Role Phone Lio Rios DO Primary Care Provider Encounter Details Date Type Department Care Team Description 11/10/2017 Procedure Pass [facility] Radiology [address] [place] [address] Social History Tobacco Use Types Packs/Day Years [...]
--- OUTSIDE RECORDS SUMMARY | 2018-01-15 17:13 | External Medical Summary | Encounter Summary ---
:[address] [facility] Address [address] [place] [address] Care Team Providers Name Role Phone Lio Rios DO Primary Care Provider Reason for Referral Radiology Services Status Reason Specialty Diagnoses / Referred By Referred To Procedures Contact Contact New Request Radiology Diagnoses Malignant neoplasm of cervix, unspecified site (HCC) Radu Hankins MD Procedures CT ABD/PELV W CONTRAST [address] [place] [address] Radiology Services Status Reason Specialty Diagnoses / Referred By Referred To Procedures Contact Contact No Auth Needed Radiology Diagnoses Malignant neoplasm of cervix, unspecified site (HCC) Radu Hankins Ww Ct Procedures CT CHEST W CONTRAST CHG CT ABDOMEN & PELVIS W/CONTRAST MATERIAL MD Graciela ROBERTS [address] [place] [address] Phone: Encounter Details Date Type Department Care Team Description 11/10/2017 Orders Only The Radu Xiong MD Malignant neoplasm of [facility] - [address] cervix, unspecified [address] site (HCC) (Primary [address] [place], [place] [address] [address] [place], [place] [phone] Social History Tobacco Use Types Packs/Day Years [...] Daryl Stephens M.D. on 12/19/2017 10:21 AM. in this encounter Visit Diagnoses Diagnosis Malignant neoplasm of cervix, unspecified site (HCC) - Primary
--- OUTSIDE RECORDS SUMMARY | 2018-01-15 17:13 | External Medical Summary | Encounter Summary ---
:1955 Author Organization [facility] Address [address] [place] [address] Care Team Providers Name Role Phone Lio Rios DO Primary Care Provider Encounter Details Date Type Department Care Team Description 11/10/2017 Procedure Pass The [facility] Radiology [address] [place] [address] Social History Tobacco Use Types Packs/Day Years [...]
--- OUTSIDE RECORDS SUMMARY | 2018-01-15 17:13 | External Medical Summary | Encounter Summary ---
:1955 Author Organization [facility] Address [address] [place] [address] Care Team Providers Name Role Phone Lio Rios Primary Care Provider Reason for Visit Reason Comments Results platelet count Encounter Details Date Type Department Care Team Description 11/10/2017 [facility] (platelet [facility] - [address] count) [address] [place] [address] [address] [place], [place] [phone] [address] [phone] Social History Tobacco Use Types Packs/Day Years [...] this encounter Miscellaneous Notes Telephone Encounter - Karen Hahn, BELLO - 11/10/2017 12:50 PM CDTLabs dated 07/18 received from [facility]. Discussed results with TYRELL Guillen, and called Maryann with the following information: Results reviewed and platelets are 81 this week, they have come up but not enough for treatment this week, She will need to have local labs done on 11/17/17 to check levels and reschedule treatment for 11/18/17 if platelet and other levels are with in treatment range. Orders faxed to [facility]. One of the scheduling staff will call her with change in treatment date information If her platelets are still not above 90 next week we can Not proceed with treatment, but they are coming up so we are hopeful she will be able to get treatment. She verbalized understanding is disappointed not to be finishing this week but will follow recommendations.in this encounter Plan of Treatment Not on fileas of this encounter Results COMPREHENSIVE METABOLIC PANEL (12/19/2017 9:40 AM) Component [...] Pharmacist for questions. Specimen Performing Laboratory Blood [facility] [address] [place] [address] CBC AND DIFF (12/19/2017 9:40 AM) Component [...] - 0.20 K/UL Specimen Performing Laboratory Blood [facility] [address] [place] [address] in this encounter Visit Diagnoses Diagnosis Malignant neoplasm of cervix, unspecified site (HCC) - Primary
--- OUTSIDE RECORDS SUMMARY | 2018-01-15 17:13 | External Medical Summary | Encounter Summary ---
:1955 Author Organization [facility] Address [address] [place] [address] Care Team Providers Name Role Phone Lio Rios DO Primary Care Provider Reason for Visit Reason Comments Medication Refill Encounter Details Date Type Department Care Team Description 12/14/2017 [facility]ill [facility] of [facility] - [address] cervix, unspecified site [address] ([facility]) [address] [place], [place] [address] [address] [place] [address] [phone] Social History Tobacco Use Types Packs/Day Years [...] this encounter Miscellaneous Notes Telephone Encounter - Diana Dial, RN - 12/14/2017 10:31 AM CDTPatient called requesting refill of Tramadol. Approved by Dr. Hankins. This RN called [facility] in [place], [place] to provide them with refill authorization, as they can take refill authorizations of Tramadol via the phone. Notified patient that refill has been phoned in to [facility] in [place], [place] and they will notify her when it is ready to be picked up.in this encounter Plan of Treatment Not on fileas of this encounter Visit Diagnoses Diagnosis Malignant neoplasm of cervix, unspecified site (HCC)
--- OUTSIDE RECORDS SUMMARY | 2018-01-15 17:14 | External Medical Summary | Encounter Summary ---
:1955 Author Organization [facility] Address [address] [place] [address] Care Team Providers Name Role Phone Lio Rios DO Primary Care Provider Encounter Details Date Type Department Care Team Description 10/31/2017 Orders Only The [facility] Radu Hankins MD [facility] - [address] Exam [address] [place] [address] [place] [address] [phone] Social History Tobacco Use Types Packs/Day Years [...]
--- OUTSIDE RECORDS SUMMARY | 2018-01-15 17:14 | External Medical Summary | Encounter Summary ---
:1955 Author Organization [facility] Address [address] [place] [address] Care Team Providers Name Role Phone Lio Rios DO Primary Care Provider Encounter Details Date Type Department Care Team Description 10/20/2017 Documentation The [facility] - Exam [address] [place] [address] Social History Tobacco Use Types Packs/Day Years [...] 07/04/2017 as of this encounter Progress Notes Angelica Burgess - 10/20/2017 4:06 PM CDTSW received call from pt stating she had not yet heard from [employer] regarding a disability susanne. SW emailed Latisha/Rebekah asking for someone to reach out to pt to meet with her tomorrow before her neuroapt tomorrow. Latisha later spoke to pt via phone and completed a screen; pt qualifies to apply for SSDI and Medicaid. Rebekah / Sandra aldana/ Monika will be able to meet with pt tomorrow prior to her MD apt; Rebekah to contact pt via phone to determine where she will meet pt. ROMEO spoke to pt via phone; confirms speaking to Latisha and appreciated the follow up call. Vinicio Leblanc this encounter Plan of Treatment Not on fileas of this encounter Visit Diagnoses Not on filein this encounter
--- OUTSIDE RECORDS SUMMARY | 2018-01-15 17:14 | External Medical Summary | Encounter Summary ---
:1955 Author Organization [facility] Address [address] [place] [address] Care Team Providers Name Role Phone Lio Rios DO Primary Care Provider Reason for Visit Reason Comments Medication Refill needs tramadol sent to pharmacy Encounter Details Date Type Department Care Team Description 11/09/2017 Telephone [facility] - [address] [facility] (needs tramadol sent to [address] pharmacy) [address] [facility] [address] [place], [place] [phone] [address] [phone] Social History Tobacco Use Types Packs/Day Years [...] Miscellaneous Notes Telephone Encounter - Karen Hahn, RN - 11/09/2017 12:58 PM CDTSpoke with Maryann to discuss request for tramadol, explained that when it was called in at the end ofMar it was done so with 2 additional refills, she can call her pharmacy and asked them to refill it. She also has not filled the prescription for oxycodone shew as given at her last appointment. Wehad a discussion about pain control and that she can and should use the oxycodone if she needs it because the tramadol is not taking care of her pain. She is taking 100 mg every 5-6 hours since she stopped taking the oxycodone. She verbalized understanding and will fill that prescription as well. She is getting herlabs drawn in [place] tomorrow morning and would like a call with results and to see if she is able to get treatment on Tuesday as scheduled. I assured her that I would call with resultsand plans for treatment. She will call with additional needs/questionsin this encounter Plan of Treatment Not on fileas of this encounter Visit Diagnoses Not on filein this encounter
--- OUTSIDE RECORDS SUMMARY | 2018-01-15 17:14 | External Medical Summary | Encounter Summary ---
:1955 Author Organization [facility] Address [address] [place] [address] Care Team Providers Name Role Phone Lio Rios DO Primary Care Provider Reason for Visit Reason Comments Heme/Onc Care Encounter Details Date Type Department Care Team Description 11/04/2017 Office Visit [facility] Malignant ne[facility] of [facility] [address] cervix, unspecified - [address] site (HCC) (Primary [address] [place], [place] [address]) [address] [address] [place], [place] [phone] Social History Tobacco Use Types Packs/Day Years Used Date Former Smoker Cigarettes 0.5 14 Quit: 05/01/2016 Smokeless Tobacco: Never Used Comments: Using nicorette Alcohol Use Drinks/Week oz/Week Comments No 0 Standard drinks or equivalent 0.0 Sex Assigned at Date Recorded Not on file as of this encounter Last Filed Vital Signs Vital Sign Reading Time Taken Blood Pressure 128/64 11/04/2017 10:50 AM CDT Pulse 70 11/04/2017 10:50 AM CDT Temperature 36.5 C (97.7 F) 11/04/2017 10:50 AM CDT Respiratory Rate 18 11/04/2017 10:50 AM CDT Oxygen Saturation 98% 11/04/2017 10:50 AM CDT Inhaled Oxygen Concentration - - Weight 58.1 kg (128 lb) 11/04/2017 10:50 AM CDT Height 162.6 cm (5' 4") 11/04/2017 10:50 AM CDT Body Mass Index 21.97 11/04/2017 10:50 AM CDT in this encounter Functional Status [...] 07/04/2017 as of this encounter Progress Notes Radu Hankins MD - 11/04/2017 10:45 AM CDTFormatting of this note may be different from the original. Subjective GYNECOLOGIC ONCOLOGY EVALUATION Name:Maryann Moreno Date: 11/04/17 1. SHINGLE BOLT CUTTER: Lizbeth Richard 2. Algebra Tutor Onc: Arden Olsen 3. PCP: Lio Altamirano Primary Care Physician: Lio Rios History of Present Illness: Maryann Moreno is a 62 y.o. female with Stage IVB cervical cancer. 05/04/16 patient presented to [facility] c/o PMB and cramping for the last few weeks. Exam revealed spotting and enlarged uterus. 05/11/16 US impression multiple fibroids, endometrium not well seen, fluid measured 3mm, no adnexal masses are identified. 05/11/16 f/u with [facility]. Discussed need for biopsy and treatment for fibroids including possible hyst and BSO. Patient not in favor of 2 procedure so a RALH/ BSO scheduled with frozen D&C. 05/19/16 Diagnostic D&C was preformed. Path revealed poorly differentiated carcinoma with squamous features, favor cervical primary over other sites. 05/24/16 patient referred to [facility] ONC. Cervical biopsy taken in clinic. Path revealed high grade squamous intraepithelial neoplasia (focal severe squamous dysplasia in a background of mild to moderate dysplasia with koilocytosis, CIN1- 3). No invasive neoplasm identified. Algebra Tutor Onc Dr. Olsen recommends radical hyst , BSO and pelvic lymphadenectomy vs pelvic radiation therapy. Patient left clinic to think about her options. MRI 06/08/16 - parametrial invasion, colleen mets and right anterior thight met PET CT - Extensive pelvic, retroperitoneal, retrocrural, and mediastinal lymphadenopathy.Anterior right thigh uptake. Reviewed in tumor board: plan for cis/taxol/avastin followed by chemoradiation 2nd opinion at [facility] with similar recs for starting with systemic chemo. Did discuss carbo vs cisplatin and [facility] consider carbo Rather than cisplatin due to toxicity, but does not havea clinical efficiency preference of one over the other. 07/12/16 for treatment planning. Complains of vaginal spotting still, menstrual like cramping, lower back pain. Pain stable today. Pelvic pain symptoms for past ~5 mths. 07/17/16 - leg biopsy - Metastatic squamous cell carcinoma Started cis/taxol/avastin C1 07/16/16, chemo complicated with mouth sores, completed C6 10/29/16 PET 09/16/16 - There has been significant improvement in FDG uptake in the cervix, now demonstrating a maximum SUV of 6.4, compared to 17.56 previously. There has also been significant interval improvement in size and FDG uptake involving retrocrural and several retroperitoneal lymph nodes, with resolution of additional retroperitoneal and pelvic lymph nodes. She went on to complete pelvic and para-aortic radiation to a dose of 45 Gy with boost to areas of residual colleen disease to 59 Gy. This was followed by tandem and ovoid brachytherapy (5.5 Gy x 5 fractions). She completed treatment on 01/27/17 PET 06/02/17 - recurrent retroperitoneal and retrocrural adenopathy with development of hypermetabolic lymph node to the left of the trachea at the level of the thoracic inlet concerning for regionaland distant colleen metastatic disease, increased uptake in breast tissue RECURRENCE 1: Reviewed treatment options. Ultimately, I would estimate her RR to be <20% witheither clinical trial or chemotherapy. If elected for chemo would consider carbo/taxol/avastin (as she received cisplatin before) or topotecan/taxol regimen. Clinical trial open now for cervical cancerwould be a phase I with TGFbeta inh. 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 There was no evidence that the weakness is related to a pelvic lesion or prior radiation exposure. Unclear if related to chemo. Here today for fu. Feeling well overall. Footdrop stable, no falls. Neuropathy otherwise has been stable. No FENG or changes in vision. Denies leg swelling. Denies vag bleeding. No bloating or changes in urinary habits. [employer]TER HISTORY: Menstrual Hx LMP: age 49 Having Periods: No Age at first period: 10 or 11 Last Pap: Abn History of Pap: denies Surgical Hx Surgery/Year: breast reduction-04/12/16, allegra Hx Age of first live : 23 Number of live births: 1 Number of pregnancies: 1 Did you breastfeed: Yes If Yes, how long? 3-4 months Oral Control: Yes Years: 3 months Infertility Medication: No Year/Med Name: Menopausal Hx Age of last period: 49 Hormone Replacement Therapy: Yes Years: Just Be Friends primrose & Medcurrent Maintenence: Colonoscopy: denies Mammogram: 15 years of more Bone scan: denies Past Medical History: Past Medical History: Diagnosis Date Cervical cancer (HCC) Heartburn Hypertension Nausea related to radiation Past Surgical History: Past Surgical History: Procedure Laterality Date CHOLECYSTECTOMY BREAST REDUCTION 04/2016 [place] INSERTION UTERINE TANDEM&/VAGINAL OVOIDS N/A 01/11/2017 BRACHYTHERAPY PELVIC ORGANS performed by Otis Tijerina MD at [facility]/Periop [place] INSERTION UTERINE TANDEM&/VAGINAL OVOIDS N/A 01/27/2017 BRACHYTHERAPY [...] needed for Pain., Disp: 90 tablet, Rfl: 0 Allergies: Allergies Allergen Reactions Codeine SEE COMMENTS Pt states bad dreams and funny feeling Social History: Family History: Family History Problem Relation Age of Onset Cancer-Breast Sister 50 Ataxia Sister Hypertension Sister Cancer-Ovarian Maternal Grandmother Hypertension Mother Hypertension Father REVIEW OF SYSTEMS: CONSTITUTIONAL: per HPI EYES: per HPI ENT: per HPI RESPIRATORY: per HPI CARDIOVASCULAR: per HPI GI: per HPI : per HPI MUSCULO-SKELETAL: per HPI SKIN: per HPI ECOG 0 Physical Exam: BP 128/64 (BP Source: Arm, Left, Patient Position: Sitting) | Pulse 70 | Temp 36.5 C (97.7 F) (Oral) | Resp 18 | Ht 162.6 cm (64") | Wt 58.1 kg (128 lb ) | SpO2 98% | BMI 21.97 kg/m GENERAL APPEARANCE: Appears healthy. Alert; in no acute distress. Pleasant but mildly anxious. HEENT: Unremarkable. No tenderness or masses noted. NECK: Neck supple. No tenderness. No adenopathy. LUNGS: Chest symmetrical. Good diaphragmatic excursion. Lungs clear; normal breath sounds. CARDIOVASCULAR: RRR. Heart sounds normal. ABDOMEN: Abdomen soft, non-tender. No masses, organomegaly, or hernia. No clinical evidence of ascites. PELVIC: (previous visit) External genitalia,urethral meatus, urethra, bladder and vagina normal. Cervix much improved 3.5cm in diameter with resolving lesion on posterior aspect no longer friable, abnormal vasculature throughout posterior cervix, uterus normal size, adnexae not palpable. Anus and perineum normal. Bimanual With a mobile uterus and cervix, cervix not fixed to sidewalls , right parametrium normal, left paremetrium normal, Exam chaperoned by nurse EXTREMITIES: Left dorsiflexion 1/5, 5/5 right. No edema. SKIN: Skin color, texture, turgor normal. No rashes or lesions. LYMPH NODES: No palpable lymph nodes ASSESSMENT/PLAN: Maryann Moreno is a 62 y.o. female with recurrent Stage IVB cervical cancer. Tolerating treatment well, will cont to hold taxol for foot drop Cleared for C6 carboplatin and avastin functionally, plt 79 so will need dose delay one week The mechanisms of action for these drugs, rationale for the TGFbeta therapy, known and potentially expected toxicities, schedule/routes of drug administration, investigational procedures, response assessment, and voluntary/ investigational nature of these trials were discussed at some length. All her questions were answered. We did review possibility of potentiating pre malignant lesions with this medicine. Pt electing for chemo. We discussed that when cervical cancer returns it is not curable but there are treatment options that would hopefully shrink or stabilize the tumor. Because of the toxicity seen with cisplatin-based combination chemotherapy, carboplatin is a reasonable substitute for cisplatin, particularly for patients with medical comorbidities (eg, pre-existing renal failure) and those patients previously treated with cisplatin-based chemoradiation. Ultimately, I estimated her RR to be <20% with either clinical trial or chemotherapy. Will treat with carbo/taxol/avastin (as she received cisplatin before) Back pain - appeared MSK in nature and is improved today, Referred to pain clinic but pt did not make it to appt, referral to PT, refill for pain meds ( tramadol) today Plan for repeat imaging after C6, if complete response will consider maintenence avastin at that points. RV review of CT Next week dose delay for chemo, repeat labs closer tohome Today's visit comprised over 40 minutes, with most of the time dedicated to face to face discussion. Radu Hankins MD Gynecologic Oncology Pgr: [phone] in this encounter Plan of Treatment Not on fileas of this encounter Visit Diagnoses Diagnosis Malignant neoplasm of cervix, unspecified site (HCC) - Primary
--- OUTSIDE RECORDS SUMMARY | 2018-01-15 17:14 | External Medical Summary | Encounter Summary ---
:1955 Author Organization [facility] Address [address] [place] [address] Care Team Providers Name Role Phone Lio Rios DO Primary Care Provider Reason for Visit Reason Comments New Patient Left drop foot patient taking Taxol Consult, Test & Treat (Urgent) Status Reason Specialty Diagnoses / Referred By Referred To Procedures Contact Contact No Auth Specialty Neurology Diagnoses Malignant neoplasm of cervix, unspecified site (HCC) Left foot drop Lashaun Hankins, Needed Services MD Eliceo Lovelace, Required [address] [facility] [address] [facility] [address] [place] [address] [place] [address] Phone: Fax: Encounter Details Date Type Department Care Team Description 10/21/2017 Office Visit [facility] Radu Hankins MD [address] [facility] [address] [place] [address] [phone] History of left foot drop (Primary Dx); Physicians-Neurology Eliceo Holt MD [address] [place] [address] [phone] Neuropathy (HCC); [facility] Malignant neoplasm of exocervix (HCC) [address] [place] [address] Social History Tobacco Use Types Packs/Day Years Used Date Former Smoker Cigarettes 0.5 14 Quit: 05/01/2016 Smokeless Tobacco: Never Used Comments: Using nicorette Alcohol Use Drinks/Week oz/Week Comments No 0 Standard drinks or equivalent 0.0 Sex Assigned at Date Recorded Not on file as of this encounter Last Filed Vital Signs Vital Sign Reading Time Taken Blood Pressure 145/78 10/21/2017 11:23 AM CDT Pulse 57 10/21/2017 11:23 AM CDT Temperature - - Respiratory Rate - - Oxygen Saturation - - Inhaled Oxygen Concentration - - Weight 57.2 kg (126 lb) 10/21/2017 11:23 AM CDT Height 162.6 cm (5' 4.02") 10/21/2017 11:23 AM CDT Body Mass Index 21.61 10/21/2017 11:23 AM CDT in this encounter Functional Status [...] 07/04/2017 as of this encounter Progress Notes Eliceo Holt MD - 10/21/2017 10:40 AM CDTFormatting of this note may be different from the original. Date of Service: 10/21/2017 Subjective: Maryann Moreno is a 62 y.o. female. 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 Also there is no prior history of neurologic disease or symptoms up until Ms. Moreno had onset of numbness in the feet in the setting of chemotherapy. Below is a summary of her oncologic treatment partially excerpted from per Dr. Hankins's most recent note. 05/04/16 patient presented to [facility] c/o PMB and cramping for the last few weeks. Exam revealed spotting and enlarged uterus. 05/11/16 US impression multiple fibroids, endometrium not well seen, fluid measured 3mm, no adnexal masses are identified. 05/11/16 f/u with [facility]. Discussed need for biopsy and treatment for fibroids including possible hyst and BSO. Patient not in favor of 2 procedure so a RALH/ BSO scheduled with frozen D&C. 05/24/16 patient referred to [facility]. Cervical biopsy taken in clinic. Path revealed high grade squamous intraepithelial neoplasia (focal severe squamous dysplasia in a background of mild to moderate dysplasia with koilocytosis, CIN1- 3). No invasive neoplasm identified. Frame Table Operator Onc Dr. Olsen recommends radical hyst , BSO and pelvic lymphadenectomy vs pelvic radiation therapy. Patient left clinic to think about her options. MRI 06/08/16 - parametrial invasion, colleen mets and right anterior thight met PET CT - Extensive pelvic, retroperitoneal, retrocrural, and mediastinal lymphadenopathy.Anterior right thigh uptake. Reviewed in tumor board: plan for cis/taxol/avastin followed by chemoradiation 2nd opinion at [facility] with similar recs for starting with systemic chemo. Did discuss carbo vs cisplatin and [facility] consider carbo Rather than cisplatin due [...] 07/16/16, chemo complicated with mouth sores, completed had 6 cycles, 10/29/16 PET 09/16/16 - There has been [...] C3 09/02/17, 24hr urine protein 238mg , plan for C5 10/14/17 (although I believe this dose was held due to the discovery of left foot drop), and another cycle is planned for next 11/01/2017. In this setting the neurologic history is as follows: With the first chemotherapy regimen of cis/taxol/avastin had onset of bilateral mild numbness and tingling in the toes and balls of the feet. No weakness was clearly noted. And after the chemotherapy the patient does not recall much suggesting that it get better. Then Ms. Moreno started carbo/taxol/avastin in July of 2017 and then noted the numbness and tingling mildly coming back around August 2017. Then the patient start to trip a little, but didn't make much of it, and then her cousin said she needs to be careful to lift the left foot up when she walks so that it clears the ground. Ms. Moreno tried to do that, and noted and noted severe weakness. This was a couple of weeks ago. The Ms. Moreno mentioned it at her follow up [facility] visit and was referred here. The left foot weakness has not progressed since. There is no weakness anywhere else. There is no clear associated leg, thigh or hip pain. Ms. Moreno has received radiation in the abdomen and pelvic region. There was a CT CAP done for surveillance. It did not show evidence pointing to disease spread that may be cause the left foot weakness: " CHEST: 1. Stable left upper lobe pulmonary nodule, which is unchanged since at least June 2016. This likely reflects a noncalcified granuloma or scarring. Attention on follow-up imaging is recommended to document longer term stability. No new pulmonary nodule. 2. Stable, solitary, mildly enlarged right hilar lymph node which is likely reactive in nature. No new sites of thoracic lymphadenopathy. 3. Mild emphysema. ABDOMEN AND PELVIS: 1. Further decrease in abdominopelvic adenopathy. No new or enlarging abdominopelvic lymph nodes. 2. 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 3. Fibroid uterus." Review of Systems HENT: Positive for postnasal drip. Musculoskeletal: Positive for back pain. Neurological: Positive for numbness. All other systems reviewed and are negative. Objective: amLODIPine (NORVASC) 5 mg tablet Take 2 tablets by mouth daily. At 1500 ( Patient taking differently: Take 7.5 mg by mouth daily. At 1400) atenolol (TENORMIN) 50 mg tablet Take 50 mg by mouth daily. At 1500 clonazePAM (KLONOPIN) 0.5 mg tablet Take 0.5 mg by mouth at bedtime daily. dexamethasone (DECADRON) 4 mg tablet Take 1 tablet by mouth daily as needed. Take with breakfaston Days 2 - 4 of each chemo cycle to prevent nausea/ vomiting. (Patient taking differently: Take 4 mgby mouth. Take with breakfast on Days 2 - 4 of each chemo cycle to prevent nausea/vomiting.) diphenhydrAMINE/lidocaine/antacid (#) (MAGIC MOUTHWASH) 1:1:1 oral suspension Swish and Spit 30 mL by mouth as directed three times daily as needed for Mouth Pain. Indications: chemo-induced mucositis HYDROcodone/acetaminophen(+) (NORCO) 10/325 mg tablet Take 1 tablet by mouth every 6 hours as needed for Pain lidocaine-prilocaine (EMLA) 2.5-2.5 % topical cream Apply dime sized amount topically to port 30minutes prior to access. loperamide (IMODIUM A-D) 2 mg capsule Take 2 mg by mouth as Needed for Diarrhea. Take 2 capsulesby mouth initially, followed by 1 capsule by mouth after each loose stool up to a maximum of 8 tablets in 24 hours. ondansetron (ZOFRAN) 8 mg tablet Take 1 tablet by mouth every 8 hours as needed for Nausea. Indications: PREVENTION OF CHEMOTHERAPY-INDUCED NAUSEA AND VOMITING prochlorperazine maleate (COMPAZINE) 10 mg tablet Take 1 tablet by mouth every 6 hours as neededfor Nausea or Vomiting. Indications: CANCER CHEMOTHERAPY- INDUCED NAUSEA AND VOMITING ranitidine(+) (ZANTAC) 150 mg tablet Take 150 mg by mouth twice daily as needed for Heartburn. senna (SENOKOT) 8.6 mg tablet Take 1-2 tablets by mouth twice daily as needed for Constipation. THIOCTIC ACID (ALPHA LIPOIC ACID(+)) 300 mg cap Take 2 capsules by mouth twice daily. Indications: PERIPHERAL NEUROPATHY traMADol (ULTRAM) 50 mg tablet Take 2 tablets by mouth every 6 hours as needed for Pain. Vitals: 10/21/17 1123 BP: 145/78 Pulse: 57 Weight: 57.2 kg (126 lb) Height: 162.6 cm (64.02") Body mass index is 21.61 kg/m. Physical Exam GENERAL EXAM: GEN: thin NEUROLOGIC EXAMINATION Mental status: Alert, awake, attentive. Normal language. Cranial Nerves: II: Visual rey are full. Pupils equal, round and reactive to light, 5 to 4 mm, a bit sluggish Funduscopic exam: III, IV, : ocular movements intact CN V: normal face sensation CN VII: no upper or lower facial weakness CN VIII: hearing intact to conversation CN IX, X: palate elevates symmetrically. Not hoarse CN XI: shoulder shrug intact bilaterally CN XII: tongue midline, no atrophy Motor: Bulk: decreased throughout Tone: normal Abnormal movements: no tremor, no fasciculations Clinical myotonia: Muscles Neck flexors 5 Neck extensors 5 Upper Extremity Muscle Right Left Lower Extremity Muscle Right Left Shoulder abductors 5 5 Hip flexors 4 4 Elbow flexors 5 5 Hip extensor Elbow extensors 5 5 Hip abductors 5 5 Wrist flexors Hip adductors 5 5 Wrist extensors 5 5 Knee flexors Knee extensors 5 5 Finger abductors 5 5 Ankle dorsiflexors 5 2 Finger extensors Ankle plantar flexors 5 4 Distal finger flex (dig 2,3) Ankle inversion 5 4 Distal finger flex (dig 4,5) Ankle eversion 5 4 Thumb abduction (APB) Toe flexors 5 4 Thumb flexion (FPL) EHL (great toe ext) 4+ 4 Sensory: Pinprick: seems to be intact throughout (no loss at the first foot webspace on either side) Temperature: decreased in the hands bilaterally. Present in the feet and LEs. Light touch: intact Vibration: (seconds at the great toe) Right: 10 Left 6 Proprioception (great toes): Coordination: finger to nose testing normal Reflexes: Right Left Triceps 1 1 Biceps 2 2 Brachioradialis 2 2 Patella 0 1 with jendrassik Ankle 0 0 Plantar Responses downgoing downgoing Station and Gait: Romberg sign: trace swaing -left steppade (mild to moderate), good speed, nl arm swing, unstable with turns -can do tandem but unstable, does very well with the toe walk, can't do heel walk on the left. Assessment and Plan: Ms. Moreno is a 62 yo woman with a history of stage IVB cervical cancer. She has received cisplatin, paclitaxel and avastin with XRT in late 2016 and early 2017 when she had mild distal sensory changes in the feet, and then she started a second round of chemotherapy with carboplatin, paclitaxel and avastin when she developed left foot drop and a dose was held. The exam today shows right dorsiflexion, eversion but what appears to be inversion weakness. The differential diagnosis includes a chemotherapy induced neuropathy, a peroneal or sciatic neuropathy or a lesion at the lower LS plexus related to either radiation treatment or further invasive disease. 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 This suggests a subacute process of at least weeks to months duration. There was no evidence that the weakness is related to a pelvic lesion or prior radiation exposure. RECs: -Will arrange for a left ankle-foot orthosiss to be fitted for Ms. Moreno. -There is no reason for Ms Moreno not to exercise, but I cautioned that she should avoid activities that put her at risk of falling. An AFO will facilitate walking and decrease her risk of falling. -follow up should be in 3 months or sooner if the weakness progresses. -I would advise to not cross her legs. She has lost weight, and this is a risk factor for a compressive neuropathy -while chemotherapy is a risk factor for mononeuropathy, it is not clear that this is simply due to chemotherapy as it is so focal. TIME SPENT I spent _60_ minutes face to face with this patient. Over half of this time I spent counseling the patient on diagnostic results, my impressions and recommendations, as well as the risks, and benefitsof management options as described. in this encounter Miscellaneous Notes Addendum Note - Eliceo Holt MD - 10/21/2017 10:40 AM CDT Addended by: ELICEO HOLT on: 11/10/2017 01:24 PM Modules accepted: Orders in this encounter Plan of Treatment Not on fileas of this encounter Visit Diagnoses Diagnosis History of left foot drop - Primary Personal history of other musculoskeletal disorders Neuropathy Mononeuritis of unspecified site Malignant neoplasm of exocervix (HCC) Malignant neoplasm of exocervix
--- OUTSIDE RECORDS SUMMARY | 2018-01-15 17:14 | External Medical Summary | Encounter Summary ---
:1955 Author Organization [facility] Address [address] [place] [address] Care Team Providers Name Role Phone Lio Rios DO Primary Care Provider Reason for Visit Reason Comments Heme/Onc Care lab draw Encounter Details Date Type Department Care Team Description 11/04/2017 [facility] of [facility] - [address] exocervix (HCC) WW Exam [address] (Primary Dx) [address] [place], [place] [address] [address] [place], [place] [phone] Social History Tobacco Use Types Packs/Day Years [...] of this encounter Results COMPREHENSIVE METABOLIC PANEL (11/04/2017 10:04 AM) Component Value Ref Range Sodium 137 137 - 147 MMOL/L Potassium 4.2 3.5 - 5.1 MMOL/L Chloride 104 98 - 110 MMOL/L Glucose 126 (H) 70 - 100 MG/DL Blood Urea Nitrogen 15 7 - 25 MG/DL Creatinine 0.82 0.4 - 1.00 MG/DL Calcium 9.5 8.5 - 10.6 MG/DL Total Protein 6.7 6.0 - 8.0 G/DL Total Bilirubin 0.4 0.3 - 1.2 MG/DL Albumin 3.8 3.5 - 5.0 G/DL Alk Phosphatase 87 25 - 110 U/L AST (SGOT) 15 7 - 40 U/L CO2 28 21 - 30 MMOL/L ALT (SGPT) 11 7 - 56 U/L Anion Gap 5 [...] Pharmacist for questions. Specimen Performing Laboratory Blood [facility] [address] [place] [address] CBC AND DIFF (11/04/2017 10:04 AM) Component Value Ref Range White Blood Cells 4.3 (L) 4.5 - 11.0 K/UL RBC 3.15 (L) 4.0 - 5.0 M/UL Hemoglobin 11.6 (L) 12.0 - 15.0 GM/DL Hematocrit 33.9 (L) 36 - 45 % MCV 107.6 (H) 80 - 100 FL MCH 36.8 (H) 26 - 34 PG MCHC 34.2 32.0 - 36.0 G/DL RDW 18.2 (H) 11 - 15 % Platelet Count 78 (L) 150 - 400 K/UL MPV 7.4 7 - 11 FL Neutrophils 62 41 - 77 % Lymphocytes 20 (L) 24 - 44 % Monocytes 15 (H) 4 - 12 % Eosinophils 2 0 - 5 % Basophils 1 0 - 2 % Absolute Neutrophil Count 2.70 1.8 - 7.0 K/UL Absolute Lymph Count 0.90 (L) 1.0 - 4.8 K/UL Absolute Monocyte Count 0.60 0 - 0.80 K/UL Absolute Eosinophil Count 0.10 0 - 0.45 K/UL Absolute Basophil Count 0.00 0 - 0.20 K/UL Specimen Performing Laboratory Blood [facility] [address] [place] [address] URINALYSIS DIPSTICK (11/04/2017 9:56 AM) Component Value Ref Range Color,UA YELLOW Turbidity,UA CLEAR CLEAR-CLEAR Specific [place]-Urine 1.020 1.003 - 1.035 pH,UA 6.5 5.0 - 8.0 Protein,UA 2+ (A) NEG-NEG Glucose,UA NEG NEG-NEG Ketones,UA NEG NEG-NEG Bilirubin,UA NEG NEG-NEG Blood,UA 1+ (A) NEG-NEG Urobilinogen,UA NORMAL NORM-NORMAL Nitrite,UA NEG NEG-NEG Leukocytes,UA NEG NEG-NEG Specimen Performing Laboratory Urine [facility] [place] [address] in this encounter Visit Diagnoses Diagnosis Malignant neoplasm of exocervix (HCC) - Primary Malignant neoplasm of exocervix
--- OUTSIDE RECORDS SUMMARY | 2018-01-15 17:14 | External Medical Summary | Encounter Summary ---
:[address] [facility] Address [address] [facility] [address] [place] [address] Care Team Providers Name Role Phone Lio Rios DO Primary Care Provider Reason for Visit Reason Comments Medication Refill Encounter Details Date Type Department Care Team Description 10/27/2017 Telephone [facility] Radu Hankins MD Medication Refill Cancer Center - [facility] [address] [address] [facility] [address] [facility] [address] [place] [address] [place] [address] [phone] Social History Tobacco Use Types Packs/Day Years [...] Telephone Encounter - Karen Hahn, RN - 10/27/2017 12:19 PM Stephon is unable to find her printed tramadol prescription that she was given in clinic on 10/14/17, she would like prescription called into her local [facility]. Refill authorization for tramadol 100mg Q6 hours PRN pain #90 with 2 refills left of pharmacy refill like as requested. Maryann will wall withany additional needs/questions.in this encounter Plan of Treatment Not on fileas of this encounter Visit Diagnoses Not on filein this encounter
--- OUTSIDE RECORDS SUMMARY | 2018-01-15 17:14 | External Medical Summary | Encounter Summary ---
:1955 Author Organization [facility] Address [address] [place] [address] Care Team Providers Name Role Phone Lio Rios DO Primary Care Provider Encounter Details Date Type Department Care Team Description 10/19/2017 Documentation [facility] - Exam [address] [place] [address] Social History Tobacco Use Types Packs/Day Years [...] this encounter Progress Notes Angelica Burgess - 10/19/2017 11:43 AM CDTSW received call from pt stating she has tried contacting [employer] but cannot remember what the plan is to receive assistance to apply for disability. Pt remembers speaking to [place] previously. Pt states she will be at her Neuro apt on 10/21 and was hoping to meet with someone to sign papers at that time if needed. Discussed that pt may need to bring certain documentation to provide [employer] for the disability application process. SW to reach out to [employer] and request someone meet with her on Tuesday before/after her apt; pt agreeable to plan. SW encouraged pt to contact this worker again by Th if she didn't speak to someone from [employer] by that time. SW emailed [employer] (Latisha/ Rebekah) requesting follow up; appreciate same. Angelica Burgess LMSWin this encounter Plan of Treatment Not on fileas of this encounter Visit Diagnoses Not on filein this encounter
--- OUTSIDE RECORDS SUMMARY | 2018-01-15 17:14 | External Medical Summary | Encounter Summary ---
:1955 Author Organization [facility] Address [address] [facility] [address] [place] [address] Care Team Providers Name Role Phone Lio Rios DO Primary Care Provider Reason for Visit Reason Comments General Question Encounter Details Date Type Department Care Team Description 11/10/2017 Telephone [facility] Lashaun General Question Physicians-Neurology MD Eliceo [facility] [address] [facility] [address] [place] [address] [place], [place] [phone] Social History Tobacco Use Types Packs/Day Years [...] this encounter Miscellaneous Notes Telephone Encounter - Shameka Mayo LPN - 11/10/2017 12:08 PM CDTDiscussed AFO prescription and discussed locations she could possibly go. The closest [facility] to [place] is in [address]. Address provided. I also explained to Maryann she did not have to use [facility] and could take the prescription to other places if she wished. Telephone Encounter - Shameka Mayo LPN - 11/10/2017 12:04 PM CDT----- Message from Eliceo Wilks MD sent at 10/31/2017 11:36 AM CDT ----- Nothing specific. Thank you. ----- Message ----- From: Shameka Mayo LPN Sent: 10/31/2017 11:32 AM To: Eliceo Wilks MD Do you have a specific type of AFO you wish to order? ----- Message ----- From: Eliceo Wilks MD Sent: 10/28/2017 4:09 PM To: Shameka Mayo LPN I would send to [facility]. She is local I think it will be OK. Thanks. ----- Message ----- From: Shameka Mayo LPN Sent: 10/28/2017 2:46 PM To: MD Dr. Lashaun Brand, I will mail the pt an AFO script. We can order these in . I need to know what kind you are thinking, custom, carbon graphite etc. Usually when pt is in office we can discuss and send them to [facility]. How do you wish to proceed? Shameka ----- Message ----- From: Boyd Jennings LPN Sent: 10/24/2017 11:25 AM To: PAMELA Benítez Dr. Tuesday patient. Routing to Shameka to assist. ----- Message ----- From: Eliceo Wilks MD Sent: 10/21/2017 4:45 PM To: PAMELA Barraza, can you please arrange for a left ankle-foot orthosis to be fitted for Ms. Moreno. This is time sensitive so if you could get to it early next week that would be great. -Also please remind her there is no reason for Ms Moreno not to exercise, but I would caution that sheshould avoid activities that put her at risk of falling. An AFO will facilitate walking and decreaseher risk of falling. -This I mentioned briefly but would appreciate if you can emphasize it: 'I would advise to not crossher legs. She has lost weight, and this is a risk factor for a compressive neuropathy" Thank you. in this encounter Plan of Treatment Not on fileas of this encounter Visit Diagnoses Diagnosis Neuropathy - Primary Mononeuritis of unspecified site Ankle weakness Other symptoms referable to ankle and foot joint Foot drop, left Other acquired deformity of ankle and foot
--- OUTSIDE RECORDS SUMMARY | 2018-01-15 17:14 | External Medical Summary | Encounter Summary ---
:1955 Author Organization [facility] Address [address] [place] [address] Care Team Providers Name Role Phone Lio Rios DO Primary Care Provider Reason for Visit Reason Comments Heme/Onc Care left without getting pot deaccessed Encounter Details Date Type Department Care Team Description 11/04/2017 [facility]phone [facility] (left [facility] - [address] without getting pot WW Exam [address] deaccessed) [address] [facility] [address] [place], [place] [phone] [address] [phone] Social History Tobacco Use Types Packs/Day Years [...] Telephone Encounter - Karen Hahn, RN - 11/04/2017 2:55 PM Stephon called and she is almost home and just realized that her port is still accessed. She would like to get it de accessed at [facility], since she is only about 30 min from there and it is a [address] back to [facility]. I spoke with Rebeca at the [facility] and she verbalized that they will be able to de access Maryann's port today, I have faxed and order to her. [phone] - I spoke with Maryann and she has gotten her port deaccessed without issue at [facility].She will call with additional needs or questions.in this encounter Plan of Treatment Not on fileas of this encounter Visit Diagnoses Diagnosis Port-a-cath in place - Primary Other postprocedural status Malignant neoplasm of cervix, unspecified site (HCC)
--- OUTSIDE RECORDS SUMMARY | 2018-01-15 17:14 | External Medical Summary | Encounter Summary ---
:1955 Author Organization [facility] Address [address] [facility] [address] [place] [address] Care Team Providers Name Role Phone Lio Rios DO Primary Care Provider Reason for Visit Reason Comments Test/procedure Encounter Details Date Type Department Care Team Description 10/21/2017 Clinical Support [facility] Farmakidis, Neuropathy ( HCC); Physicians-Neurology MD Eliceo Left foot drop [facility] ON [address] [address] [facility] [address] [place], [place] [phone] Social History Tobacco Use Types Packs/Day [...] of this encounter Visit Diagnoses Diagnosis Neuropathy Mononeuritis of unspecified site Left foot drop Other acquired deformity of ankle and foot
[2018-01-15] MEDS ORDERED: METOCLOPRAMIDE 10mg/2ml INJECTION IVP ONE (17:37)
[2018-01-15] MEDS ORDERED: MORPHINE SULFATE 2mg INJECTION IVP ONE (17:37)
[2018-01-15] MEDS: SALINE FLUSH 10ml SYRINGE IVF PRN ×2 (17:43→17:45)
--- NOTE | 2018-01-15 17:56 | Emergency Department Report ---
Abdominal Pain HPI - General Chief Complaint: Abdominal Pain Stated Complaint: severe stomach pain Source: patient Mode of arrival: wheelchair - History of Present Illness HPI narrative: PT presents with a complaint of severe abdominal pain that started about 0730. PT has history of cervical cancer and is currently receiving maintenance chemo. She does have problems with constipation and usually takes medications to treat it however she has not taken them for several days for an unknown reason. She states she had a very tiny BM yesterday but has not had a "normal" one for several days. She also reports yesterday while at the store she reached for something and "pulled" her abdominal muscles. She has been nauseated but denies vomiting. She denies fever, cough or location specific abdominal pain. MD complaint: abdominal pain Onset (ago): hour(s) Consistency: constant Location: diffuse Associated symptoms: nausea - Related Data Home Medications Medication Instructions Recorded Confirmed Amlodipine [Norvasc] 10 mg PO 1500 01/15/18 01/15/18 Atenolol [Tenormin] 50 mg PO HS 01/15/18 01/15/18 ClonazePAM [Klonopin] 0.5 mg PO BID PRN 01/15/18 01/15/18 Oxycodone HCl [Oxycontin] 60 mg PO BID PRN 01/15/18 01/15/18 Sennosides [Senokot] 8.6 mg PO PRN 01/15/18 01/15/18 Tramadol [Ultram] 100 mg PO Q6H PRN 01/15/18 01/15/18 Allergies Allergy/AdvReac Type Severity Reaction Status Date / Time codeine [Codiene] AdvReac Severe "makes me Verified 01/15/18 16:59 feel crappy" Review of Systems All systems: reviewed and negative except as stated Constitutional: Reports: as per HPI Gastrointestinal: Reports: as per HPI Genitourinary: Reports: as per HPI PFS Patient Stated Medical History Hypertension Yes - Social History Smoking status: Never smoker Physical Exam - Limitations Limitations: no limitations - General General appearance: alert, in distress - Normal Exams: Head:: Normocephalic without trauma Chest/Respirations:: Clear all rey, with good airflow Cardiovascular:: Regular rate and rhythm, without murmur or gallop, Pulses 2+ all extremities, capillary refill, <2 seconds all extremities Musculoskeletal:: No tenderness, or deformity noted, good range of motion, all extremities Integumentary:: No rashes Neurological:: Patient is alert, and oriented, cranial nerves, motor/sensory/ cerebellar, exams w/o gross deficits, to observation Psychiatric:: Patient exhibits, appropriate attention, emotion and affect - Abdominal Exam Abdominal exam: Present: soft, tenderness, guarding, normal bowel sounds. Absent: distention, rigidity Course Vital Signs Temperature 99.5 F 01/15/18 16:45 Pulse Rate 91 01/15/18 16:45 Respiratory Rate 18 01/15/18 16:45 Blood Pressure 163/78 H 01/15/18 16:45 Pulse Oximetry 97 01/15/18 16:45 Temperature 99.5 F 01/15/18 16:45 Pulse Rate 91 01/15/18 16:45 Respiratory Rate 18 01/15/18 17:43 Blood Pressure 163/78 H 01/15/18 16:45 Pulse Oximetry 97 01/15/18 16:45 Abdominal Pain - MDM Narrative Medical decision making narrative: Labs reviewed. Pt provided NS, morphine, and reglan while waiting CT results. PT has increasing temp through stay and Tylenol provided. Although pt rests with eyes closed she continued to complain of pain >10. CT reveals mild ascites and colitis. There is no notation regarding stool. Pt continues to complain of pain. Hospitalist notified of pt status and findings and will admit. - Differential Diagnosis Differential diagnosis: Likely: abdominal pain, acute appendicitis, constipation , diverticulitis, gastroenteritis, small bowel obstruction - Lab Data Attestation: I reviewed the patient's lab results. Result diagrams: 01/15/18 17:23 01/15/18 17:23 Lab Results 01/15/18 Range/Units 17:23 WBC 9.4 (4.5-11.0) T/MM3 RBC 3.87 L (4.00-5.20) M/MM3 Hgb 13.4 (12-16) GM/DL Hct 42.1 (36-46) % MCV 108.8 H (80-100) UM3 MCH 34.6 H (26-34) UUG MCHC 31.8 (31-37) GM/DL RDW Std Deviation 50.5 H (36.9-50.2) FL Plt Count 218 (130-400) T/MM3 MPV 9.0 L (9.4-12.4) UM3 Immature Gran % (Auto) Not performed Neut % (Auto) Not performed Lymph % (Auto) Not performed Daggett % (Auto) Not performed Eos % (Auto) Not performed Baso % (Auto) Not performed Neut # (Auto) Not performed Lymph # (Auto) Not performed Daggett # (Auto) Not performed Eos # (Auto) Not performed Baso # (Auto) Not performed Abs Immat Gran (auto) Not performed Neutrophils % (Manual) 84.0 H (33-66) % Band Neutrophils % 5.0 (0-6) % Reactive Lymphs % 1.0 H (0-0) % Monocytes % (Manual) 9.0 (0-9.0) % Metamyelocytes % 1.0 H (0-0) % Neutrophils # (Manual) 7.9 H (1.8-7.7) T/MM3 Band Neutrophils # 0.5 T/MM3 Abs React Lymphs (Man) 0.1 H (0-0) T/MM3 Monocytes # (Manual) 0.8 (0-0.8) T/MM3 Metamyelocytes # 0.1 T/MM3 Polychromasia 1+ Anisocytosis 1+ Macrocytosis 1+ RBC Morph Comment Abnormal - Radiology Data Attestation: I reviewed the patient's radiology results. (per V rad) Disposition Clinical Impression: Colitis Fever Qualifiers: Fever type: unspecified Qualified Code(s): R50.9 - Fever, unspecified Disposition: 02 To [facility] Acute Care Prescriptions: No Action Amlodipine [Norvasc] 10 mg PO 1500 ClonazePAM [Klonopin] 0.5 mg PO BID PRN PRN Reason: Anxiety Tramadol [Ultram] 100 mg PO Q6H PRN PRN Reason: Pain Atenolol [Tenormin] 50 mg PO HS Oxycodone HCl [Oxycontin] 60 mg PO BID PRN PRN Reason: Pain Sennosides [Senokot] 8.6 mg PO PRN Referrals: Lio Rios DO [Primary Care Provider] - Time of Disposition: 19:22 - Seen By: midlevel
[2018-01-15] MEDS ORDERED: IOHEXOL 300mg/ml 75ml INJECTION ONE (18:03)
[2018-01-15] MEDS ORDERED: SALINE FLUSH 10ml SYRINGE ONE (18:03)
[2018-01-15] MEDS ORDERED: NS 1,000 ML IV ONE ×2 (18:39→21:27)
[2018-01-15] MEDS ORDERED: ACETAMINOPHEN 500 MG TABLET PO PRN (19:06)
[2018-01-15] MEDS ORDERED: KETOROLAC 30 MG/ML INJECTION IVP ONE (19:26)
[2018-01-15] MEDS ORDERED: MetroNIDAZOLE PB 500 MG/100 ML BAG IV SCH (19:30)
[2018-01-15] MEDS ORDERED: OXYCODONE HCL 60 MG PO PRN (20:11)
[2018-01-15] MEDS ORDERED: ACETAMINOPHEN 325 MG TABLET PO PRN (20:11)
--- NOTE | 2018-01-15 20:38 | History & Physical Report ---
History of Present Illness Date: 01/16/18 Chief complaint: abdomen pain HPI: This is a 63 y/o female currently being treated for cervical carcinoma. The patient had onset of abdomen pain this morning. lower quadrants, non radiating. The patient had no fevers that she felt but was febrile in the ED. The patient has ongoing constipation. In the ED the patient had a CT that demonstrated mild ascites but more importantly changes in the sigmoid colon c/w colitis. The patient will be admitted with tx for cipro and flagyl. Note that lactic acid was added after review of chart and will be followed. Review of Systems Review of systems: no headache, no congestion. c/o sore in her lower right gum that is recent onset. no neck or jaw pain, no chest pain, no cough, no congestion, mild nausea with one episode of emesis, no blood. constipation. no blood in stools, no focal neuor complaints, no skin rashes, 12 point RoS otherwise negative except for outlined above. Past Medical History Medical History Updates: cervical carcinoma 2016, constipation, neuropathy Surgical History: cholycystectomy Family History: non contributory Family History: As Above - Social History Smoking status: Never smoker Substance use type: does not use Alcohol intake frequency: does not drink Household members: other (x ) Current occupational status: unemployed Does patient use chewing tobacco?: No Current residence: Apartment/Private Home Medications Home Medications Medication Instructions Recorded Confirmed Type Amlodipine [Norvasc] 10 mg PO 1500 01/15/18 01/15/18 History Atenolol [Tenormin] 50 mg PO HS 01/15/18 01/15/18 History ClonazePAM [Klonopin] 0.5 mg PO BID PRN 01/15/18 01/15/18 History Oxycodone HCl [Oxycontin] 60 mg PO BID PRN 01/15/18 01/15/18 History Sennosides [Senokot] 8.6 mg PO PRN 01/15/18 01/15/18 History Tramadol [Ultram] 100 mg PO Q6H PRN 01/15/18 01/15/18 History Allergies Allergy/AdvReac Type Severity Reaction Status Date / Time codeine [Codiene] AdvReac Severe "makes me Verified 01/15/18 16:59 feel crappy" Exam Vital Signs: Temperature 100.3 F 01/15/18 20:11 Pulse Rate 100 01/15/18 20:11 Respiratory Rate 20 01/15/18 20:11 Blood Pressure 152/87 H 01/15/18 20:11 Pulse Oximetry 95 01/15/18 20:11 Telemetry Rhythm: Sinus Rhythm Height/Weight/BMI: Height 1.63 m Weight 54.9 kg Body Mass Index 20.7 - Constitutional Present: mild distress, moderate distress, average body habitus, cooperative - Routine HEENT Exam Head: Present: normocephalic, atraumatic Eye: Present: EOMI, conjunctivae pink ENT: Present: mucous membranes dry - Routine Neck Exam Present: supple, full ROM - Routine Respiratory Exam Present: CTA bilaterally - Routine Cardiovascular Exam Present: RRR, no murmur - Routine Abdominal Exam Present: soft Comments: moderate tender to palpation , bowel sounds present, guard, no rebound - Routine Extremities Exam Present: full ROM - Routine Back/Spine/Pelvis Exam Back/Spine: Present: full ROM - Routine Skin Exam Present: intact, dry - Routine Neurological Exam Present: alert, oriented X3, moving all extremities, normal tone, normal speech - Routine Psychiatric Exam Present: normal affect, normal thought process Results - Labs CBC & Chem 7: 01/16/18 10:25 01/16/18 03:53 Labs: reviewed above and pertienet labs to be addressed below CT of the abd and pelvis demonstrate ascites, mild and changes c/w sigmoid colitis Assessment and Plan (1) Colitis Current visit: Yes Status: Acute (2) Hyperglycemia Current visit: Yes Status: Acute (3) Sepsis Current visit: Yes Status: Acute (4) Hypertension Current visit: Yes Status: Acute (5) History of cervical cancer Current visit: Yes Status: Acute Assessment and Plan: 1. colitis acute POA: sigmoid. clear diet. labs repeat in the am. significant amount of pain. Will add lactic acid not checked in ED. cT not describe changes c/w ischemic bowel. cipro and flagyl. 2. sepsis acute POA: checking lactic acid, fluids, ANB and repeat markers in the am 3. HTN acute POA: continue antihypertensive meds. currently hypertensive, b jeremiah, norvasc 4. hyperglycemia acute POA: no h/o dm. check sugars and if continued elevated check a1c and start correctinal plan 5. DVT ppx; SCD, lovenox, obviously at risk DVT Prophylaxis: SCD's, Lovenox Resuscitation Status: Full Code - Time spent with patient Time with patient PN: 35 minutes - Physician Narrative Physician: Alissa Tay MD Narrative: Date: 01/16/18 Time: 1420 See supplemental note dictated 01/16/18. Hospital Course Summary Disclaimer: The visit summary below is not to be considered part of the above Progress Note.
[2018-01-15] MEDS: NS 1,000 ML IV SCH ×2 (21:16→23:52)
[2018-01-15] MEDS: MetroNIDAZOLE PB 500 MG/100 ML BAG IV SCH (22:31)
[2018-01-15] MEDS: ATENOLOL 50 MG TABLET PO SCH (22:32)
[2018-01-15] MEDS: ENOXAPARIN 40 MG/0.4 ML INJECTION SQ SCH (22:32)
[2018-01-15] MEDS: POLYETHYL GLYCOL 3350 17gm PACKET PO SCH (22:32)
[2018-01-15] MEDS: MORPHINE SULFATE 4mg INJECTION IVP PRN (23:44)
[2018-01-16] MEDS ORDERED: CALCIUM CARBONATE Chewable 750mg TABLET PO PRN (00:11)
[2018-01-16] MEDS ORDERED: CALCIUM CARBONATE Chewable 500mg TABLET PO ONE (00:27)
[2018-01-16] MEDS: HYDROCODONE/APAP 5mg/325mg TABLET PO PRN ×4 (00:32→18:10)
[2018-01-16] MEDS ORDERED: CALCIUM CARBONATE Chewable 500mg TABLET PO PRN ×2 (01:40→17:12)
[2018-01-16] MEDS: MetroNIDAZOLE PB 500 MG/100 ML BAG IV SCH ×3 (05:10→20:11)
[2018-01-16] MEDS: NS 1,000 ML IV SCH (06:15)
[2018-01-16] MEDS: MORPHINE SULFATE 4mg INJECTION IVP PRN ×2 (08:09→19:59)
[2018-01-16] MEDS: FLEET PHOSPHO - SODA ENEMA 133ml PR PRN ×3 (08:10→20:17)
[2018-01-16] MEDS: ENOXAPARIN 40 MG/0.4 ML INJECTION SQ SCH (08:10)
[2018-01-16] MEDS: POLYETHYL GLYCOL 3350 17gm PACKET PO SCH (08:11)
--- NOTE | 2018-01-16 08:48 | CT Scan Report ---
EXAM: CT abdomen pelvis w con DATE: 01/15/2018 12:00 AM ENCOUNTER: Initial INDICATION: abd pain, hx cervical cancer COMPARISON: None available. TECHNIQUE: CT of the abdomen and pelvis with IV contrast. The patient received 67 mL of Omnipaque 300 without complication. Coronal and sagittal reformatted images were performed. The current CT scan was performed using radiation dose-reduction techniques. FINDINGS: Lower Chest: The visualized portions of the lower lungs are well aerated. No focal airspace disease. The heart is normal in size without pericardial effusion. Abdomen: No intraperitoneal free air. Trace perihepatic and right paracolic gutter ascites. No focal rim-enhancing fluid collections. No lymphadenopathy. Liver: The liver enhances homogeneously without focal masses. Gallbladder and biliary: The gallbladder is surgically absent. Enlargement of the common bile duct likely secondary to postcholecystectomy state. No intrahepatic biliary ductal dilatation. Spleen: The spleen appears normal. Pancreas: The pancreas demonstrates homogeneous attenuation. Adrenal glands: The adrenal glands are normal in size and attenuation. Kidneys/ureters: The kidneys appear normal. The ureters are normal in course and caliber. GI tract: Moderate stool within the right and transverse colon. The stomach, small bowel, and colon appear otherwise grossly normal. The appendix is not seen with certainty however no significant pericecal inflammatory changes are seen to suggest acute appendicitis. Vascular structures: The aorta is normal in course and caliber with mild atherosclerotic calcifications noted. The mesenteric arterial and venous structures appear patent. Pelvis: Mild pelvic free fluid. No pelvic lymphadenopathy. Bladder: The bladder appears normal. Genital system: Calcified uterine fibroids. No adnexal mass appreciated. Skeletal structures and soft tissues: Mild degenerative spondylosis of the visualized spine. The visualized skeletal structures are otherwise grossly normal. IMPRESSION: 1. Trace ascites at the inferior margin of the liver, within the right paracolic gutter, and pelvis of indeterminate etiology, with no other acute intra-abdominal/pelvic process identified by contrast enhanced CT. 2. Calcified uterine fibroids. 3. Cholecystectomy with associated prominence of the common bile duct. The above report concurs with the preliminary report provided by [employer] at 7:03 PM. .
[2018-01-16] MEDS ORDERED: LACTULOSE 20 GM/30 ML ORAL LIQUID PO ONE (10:09)
[2018-01-16] MEDS: SENNA + DOCUSATE TABLET PO SCH ×2 (10:13→20:28)
[2018-01-16] MEDS: NS with KCL 20 mEq 1,000 ML IV SCH ×2 (10:14→20:18)
--- NOTE | 2018-01-16 11:49 | General Surgery Consult Note ---
Consult date: 01/16/18 Attending Physician: Alissa Tay MD [facility] Patient Stated Medical History Medical History Updates: cervical carcinoma 2016,. constipation,. neuropathy. HTN Surgical History: cholecystectomy "many years ago" Family History: Father - CHF Mother - CHF Sister - Breast cancer - Social History Smoking status: Never smoker Substance use type: does not use Alcohol intake frequency: does not drink Household members: other (x ) Current occupational status: unemployed Does patient use chewing tobacco?: No Current residence: Apartment/Private Home Medications Home Medications Medication Instructions Recorded Confirmed Type Amlodipine [Norvasc] 10 mg PO 1500 01/15/18 01/15/18 History Atenolol [Tenormin] 50 mg PO HS 01/15/18 01/15/18 History ClonazePAM [Klonopin] 0.5 mg PO BID PRN 01/15/18 01/15/18 History Oxycodone HCl [Oxycontin] 60 mg PO BID PRN 01/15/18 01/15/18 History Sennosides [Senokot] 8.6 mg PO PRN 01/15/18 01/15/18 History Tramadol [Ultram] 100 mg PO Q6H PRN 01/15/18 01/15/18 History Allergies Allergy/AdvReac Type Severity Reaction Status Date / Time codeine [Codiene] AdvReac Severe "makes me Verified 01/15/18 16:59 feel crappy" Review of Systems 10-point ROS: negative except for HPI and the following: - General General: Present: fever (in the ED) - Eyes/Ears/Nose/Throat Ear Nose Throat: Present: other (mouth sore on lower gum) - Gastrointestinal Gastrointestinal: Present: nausea, constipation (slow transit), other (abd pain) - Vital Signs Last Vital Signs Temp 97.6 F 01/16/18 11:41 Pulse 85 01/16/18 11:41 Resp 16 01/16/18 11:41 BP 155/77 H 01/16/18 11:41 Pulse Ox 96 01/16/18 11:41 - Laboratory Result Diagrams: 01/16/18 10:25 01/16/18 03:53 - Microbiogy Microbiology 01/16/18 11:35 Port/Picc Gram Stain - Final Not performed 01/16/18 11:32 Port/Picc Gram Stain - Final Not performed General Surgery Results - Results Labs: 01/16/18 10:25 01/16/18 03:53 Microbiology: Microbiology 01/16/18 11:35 Port/Picc Gram Stain - Final Not performed 01/16/18 11:32 Port/Picc Gram Stain - Final Not performed
[2018-01-16] MEDS: ONDANSETRON 4 MG/2 ML INJECTION IVP PRN ×2 (13:34→21:41)
--- NOTE | 2018-01-16 14:34 | History & Physical Report ---
History of Present Illness Date: 01/16/18 Chief complaint: abdominal pain HPI: Mrs. Moreno is a 63 y/o female currently being treated for cervical carcinoma at the [facility]. She's completed chemotherapy and radiation therapy and is now on maintenance chemotherapy with Avastin with last dose on 12/30/17. Patient presented to the emergency room yesterday evening complaining of severe abdominal pain starting yesterday morning. She additionally reported having no bowel movement for days with generalized abdominal bloating, nausea without emesis, and decreased oral intake in conjunction with impaired appetite. She described "pulling" stomach muscles while reaching for an item shopping yesterday. She denied fever, chills, or sweats but was noted to be febrile in the emergency room. She denied cough, sputum production, urinary frequency or dysuria. CT of the abdomen and pelvis obtained in the ED demonstrated mild ascites and possible changes in the sigmoid colon c/w colitis although went over read this morning the sigmoid changes were felt to be chronic. The patient was admitted yesterday evening and started on Cipro and Flagyl. Lactic acid was obtained and was elevated at 3.4 initially. Review of Systems All systems PM: 10-point ROS was reviewed, no additional remarkable complaints except (recent right lower dental infection for which patient has been on amoxicillin for 48 hours, corresponding facial swelling. Left foot drop after chemotherapy. 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 Mother- valvular heart disease due to rheumatic fever, due to complications of biliary disease. Sister-breast cancer Family History: As Above - Social History Smoking status: Current some day smoker ( indicates patient smokes an occasional cigarette) Substance use type: does not use Alcohol intake frequency: does not drink Does patient use chewing tobacco?: No Current residence: Apartment/Private Home Social history: PCP-Dr. Rios [facility]ins at [facility] Full code DPOA not assigned Medications Home Medications Medication Instructions Recorded Confirmed Type Amlodipine [Norvasc] 10 mg PO 1500 01/15/18 01/15/18 History Atenolol [Tenormin] 50 mg PO HS 01/15/18 01/15/18 History ClonazePAM [Klonopin] 0.5 mg PO BID PRN 01/15/18 01/15/18 History Oxycodone HCl [Oxycontin] 60 mg PO BID PRN 01/15/18 01/15/18 History Sennosides [Senokot] 8.6 mg PO PRN 01/15/18 01/15/18 History Tramadol [Ultram] 100 mg PO Q6H PRN 01/15/18 01/15/18 History Allergies Allergy/AdvReac Type Severity Reaction Status Date / Time codeine [Codiene] AdvReac Severe "makes me Verified 01/15/18 16:59 feel crappy" Exam Vital Signs: Temperature 97.6 F 01/16/18 11:41 Pulse Rate 85 01/16/18 11:41 Respiratory Rate 16 01/16/18 11:41 Blood Pressure 155/77 H 01/16/18 11:41 Pulse Oximetry 96 01/16/18 11:41 EXAM: General-curled in right position, alert, uncomfortable-appearing HEENT-PERRL, EOMI without nystagmus, conjugate gaze, conjunctiva clear, sclera anicteric, facial structures symmetric, oropharynx clear without obvious dental inflammation although multiple teeth are missing, mild facial swelling right mandible without erythema or fluctuance, neck supple and without adenopathy Lungs-respirations nonlabored, good airflow, breath sounds clear Cardiac-regular rhythm, S1-S2 Abd-soft, moderately distended, hypersensitive to light palpation with guarding and peritoneal signs present, diminished bowel sounds Ext-without edema Skin-without rash or evidence of wounds; PAC site right upper chest without erythema or evidence of inflammation Neuro-cranial nerves 3-12 intact, sensation intact 4 extremities, motor tone normal, no tremor Psych-anxious, cooperative Height/Weight/BMI: Height 1.63 m Weight 56 kg Body Mass Index 20.7 Results - Labs CBC & Chem 7: 01/16/18 10:25 01/16/18 03:53 Labs: The WBC yesterday evening 9.4 dropping to 1.4 this morning; with above CBC differential is: S13 B57 L14 and ANC 2030. MCV 107.7 Presenting blood sugar 223, liver enzymes unremarkable Lactic acid 3.4-2.3 Urinalysis: 1-3 WBCs, trace bacteria, negative nitrate. +2 occult blood, 5-10 RBC Microbiology Results: Microbiology 01/16/18 11:35 Port/Picc Blood Culture - Preliminary Culture Initiated - Results Pending 01/16/18 11:32 Port/Picc Blood Culture - Preliminary Culture Initiated - Results Pending - Imaging and Cardiology CT scan - abdomen Status: image reviewed by me (CT abdomen and pelvis reviewed by myself in conjunction with radiology. There is marked constipation with distention of the right hemicolon, trace ascites along the inferior liver and right paracolic gutter. Calcified uterine fibroids incidentally noted in addition to prominence of the common bile duct consistent with prior cholecystectomy. Appendix was not well seen however there was no inflammatory change seen in the right colon.) Assessment and Plan (1) Sepsis Current visit: Yes Status: Acute Assessment and Plan: Impression: Severe sepsis Abdominal pain, severe Neutropenia, acute Constipation Hyperglycemia, acute Macrocytosis Hypertension Cervical cancer, hx of chemotherapy/XRT Hypokalemia-not POA Plan: Patient presented with severe abdominal pain, fever, and subsequent identification of lactic acidosis. CT abdomen was initially interpreted as having changes of sigmoid colitis not confirmed on final reading. Abdominal coverage with Cipro and Flagyl initiated in conjunction with IV fluids. Blood cultures have been subsequently drawn with one drawn through PAC. Marked leukocytosis with drop in ANC noted this morning; white count repeated and not as low as initially described. Discussed with Dr. Hankins-not expected with recent course of Avastin. Suspect leukocytosis manifestation of infection although source of infection unclear. Chest x-ray to be obtained although lung bases clear on CT. Enemas initiated for constipation and lactulose added orally for management of constipation. Dr. Grubbs consulted to assist in management of abdominal symptoms. Potassium being replaced IV; vitamin B-12/TSH/folic acid will be checked in evaluation of macrocytosis. Hyperglycemia likely stress [id number] ordered, corrective insulin if needed. DVT Prophylaxis: Lovenox Resuscitation Status: Full Code - Physician Narrative Narrative: Date: 01/16/18 Time: 9 Sepsis Assessment - Evaluation SIRS Criteria: temperature > 100.9, pulse > 90 beats/minute, WBC < 4,000, Bands > 10% Severe Sepsis: lactate > 2.0 mg/dL Hospital Course Summary Disclaimer: The visit summary below is not to be considered part of the above Progress Note. Hospital Course: 01/15/18 Admitted with abdominal pain and possible colitis. Cipro and Flagyl initiated. 01/16/18 Patient presented with severe abdominal pain, fever, and subsequent identification of lactic acidosis. CT abdomen was initially interpreted as having changes of sigmoid colitis not confirmed on final reading. Abdominal coverage with Cipro and Flagyl initiated in conjunction with IV fluids. Blood cultures have been subsequently drawn with one drawn through PAC. Marked leukocytosis with drop in ANC noted this morning; white count repeated and not as low as initially described. Discussed with Dr. Hankins-not expected with recent course of Avastin. Suspect leukocytosis manifestation of infection although source of infection unclear. Chest x-ray to be obtained although lung bases clear on CT. Enemas initiated for constipation and lactulose added orally for management of constipation. Dr. Grubbs consulted to assist in management of abdominal symptoms. Potassium being replaced IV; vitamin B-12/TSH/folic acid will be checked in evaluation of macrocytosis. Hyperglycemia likely stress [id number] ordered, corrective insulin if needed.
--- NOTE | 2018-01-16 14:47 | Consultation ---
DATE OF CONSULTATION 01/16/2018 FINDINGS Mrs. Rao is a 63-year-old female whom I was asked to see today as a result of her physical findings of severe abdominal pain. The patient was accompanied with her family members who also provided some of the clinical history. The patient states that a couple of days ago she was in the grocery store and had reached up to "get something". She states that she then felt something "tear" within her lower abdomen. Since this event, she has continued to have ongoing severe abdominal pain across her entire lower abdomen. Pain is described as being very severe in nature. Pain is constant in nature. Pain is made worse with movement. She denied really any specific alleviating features. Upon questioning the patient, she states that she has been battling constipation. She states that it has been about 3-4 days since she has had a bowel movement. Patient states that prior to this, she did notice a small amount of blood within her stool. She apparently was scheduled to undergo a hysterectomy laparoscopically several months ago. states that when they started the surgery they had found "cancer everywhere". Apparently the patient was found to have advanced cervical cancer and has underwent chemo/radiation. now states that she has been "cured" of her cervical cancer and now is only on "maintenance therapy". Apparently the patient still is receiving Avastin. states that a couple of weeks ago she had another infusion of Avastin in [place]. The patient's oncologist is Dr. Paredes in [place]. The patient was admitted to our hospital as a result of her severe abdominal pain. Consult has been put forth to myself. PAST MEDICAL HISTORY Performed by my nurse practitioner, Jose Velasquez. PAST SURGICAL HISTORY Performed by my nurse practitionerJose. MEDICATIONS Performed by my nurse practitionerJose. ALLERGIES Performed by my nurse practitionerJose. SOCIAL HISTORY Performed by my nurse practitionerJose. FAMILY HISTORY Performed by my nurse practitionerJose. REVIEW OF SYSTEMS Performed by my nurse practitionerJose. PHYSICAL EXAMINATION GENERAL: Mrs. Moreno is a 63-year-old female who, upon my entering the room earlier this morning, did appear to be in discomfort. She was lying on her side with her leg somewhat drawn up. She was complaining severely of abdominal pain. VITALS: Afebrile. Normotensive. Current vitals include temperature 97.6, pulse 85, respirations 16, blood pressure 155/77, SaO2 96% on room air. HEENT: Normocephalic. Pupils are equally round and react to light and accommodation. NECK: Supple without lymphadenopathy. CHEST: Clear to auscultation bilaterally. HEART: Regular rate and rhythm. Normal S1, S2, without gallops, murmurs or clicks. ABDOMEN: Visualization of the abdomen does reveal it to be slightly distended in nature. I did not see any evidence for significant surgical incisions upon her anterior abdominal wall. No evidence for prominence was noted within the inguinal regions. The patient had requested that I "not touch her". I informed the patient that I did need to examine her, so that I knew how best to treat her. Exam was somewhat difficult in the fact that as soon as I lightly laid my hand upon her skin, she began to complain horribly of abdominal pain. It seem that her pain was out of proportion to what one would expect for again I was not even able to touch her skin without complaint of severe abdominal pain. Upon questioning the patient, she stated that she was unable to roll to her back as a result of the pain. Eventually I was able to have the patient roll to her back and was able to begin to palpate her abdomen. She did seem to be fairly tender throughout but her abdomen was not rigid in nature. She did have a component of some voluntary guarding. I did not appreciate any evidence however for involuntary guarding. I was unable to appreciate any evidence for hepatosplenomegaly or other abnormal masses. As soon as I had completed my abdominal examination, the patient sat up very quickly within the bed and stated that she was feeling nauseated. She did seem to be moving around in the bed upon watching her, without much difficulty. EXTREMITIES: Without clubbing, cyanosis, or edema. NEURO: Cranial nerves II-XII grossly intact. Patient without focal, motor, or sensory deficits. LABORATORY/RADIOGRAPHIC/REVIEW OF PATIENT'S CHART Patient's white count on admission was 9.4. Earlier this morning, her white count was 1.4. Repeat CBC was obtained and her white count was now 2.9. It does have a left shift with 13% neutrophils and 57% bands. BMP was obtained and her potassium was slightly low at 3.4. Her plasma lactate was elevated upon admission at 3.4. Today it is down to 2.3. Radiographically, the patient did undergo a CT scan of her abdomen and pelvis. The patient was found to have a component of some trace ascites. There was no acute intraabdominal/pelvic process identified by enhanced CT scan. Patient was found to have some calcified uterine fibroids. One could see the patient had underwent prior cholecystectomy. Upon reviewing the CT scan personally, one can see a considerable amount of stool throughout her colon. The right colon does appear somewhat dilated in nature and contains a fair amount of stool. There was no evidence for pneumoperitoneum. I did not see any acute mesenteric fat stranding to suggest intraabdominal process upon my review as well. ASSESSMENT 63-year-old female with history for cervical cancer, status post infusion of Avastin, finding of significant abdominal pain upon physical examination, bandemia. PLAN I informed the patient and her that I am quite concerned in regards to her abdominal pain noted on exam. Her CT scan, however, was normal without any evidence for an acute intra-abdominal process. At times people can develop severe pain as a result of their constipation. I do see the patient has been ordered to be given enemas. She apparently had received one enema prior to my arrival. She was the process of receiving an additional enema. I do see that the patient reportedly had a component of inflammation of her colon upon our outside radiologist and was began on antibiotic therapy initially. At this point in time, I informed the patient and her that I would try my best to come back later this afternoon following my surgical cases and reevaluate her from a physical examination standpoint. One may wish to repeat her CT scan tomorrow if she continues to have ongoing abdominal pain. It is my clinical intuition at this time that we are not dealing with an acute surgical emergency/ abdomen such as a perforated viscus. I am however quite concerned in regards to her severe abdominal pain noted on examination. Will continue to follow closely. MILTON
[2018-01-16] MEDS ORDERED: INSULIN ASPART 100unit/ml INJECTION SQ PRN (14:51)
--- NOTE | 2018-01-16 14:54 | XRay Report ---
EXAM: XR abdomen 2V DATE: 01/16/2018 12:00 AM Encounter: Subsequent INDICATION: severe abdominal pain COMPARISON: Abdominal CT of the previous day Technique: Upright and supine AP abdominal radiographs were obtained. Findings: Non-obstructive bowel gas pattern. Moderate colonic gas and stool. No intraperitoneal free air. Cholecystectomy clips noted. Degenerative spondylosis of the visualized spine. Calcified pelvic phleboliths. No acute osseous abnormality identified. The visualized lung bases appear clear. Impression: Moderate colonic gas and stool with a nonobstructive bowel gas pattern. .
--- NOTE | 2018-01-16 15:26 | XRay Report ---
Indication: sepsis Procedure: XR chest 1V: Encounter: Initial Comparison: None Technique: A single AP view of the chest was obtained. Findings: Right IJ Port-A-Cath in place with tip in the right atrium. Lungs and airways: Mildly low lung volumes with associated subsegmental atelectasis. No other focal/confluent airspace consolidation. Normal pulmonary vasculature. Pleura: No pleural effusion or pneumothorax. Heart and mediastinum: The cardiomediastinal silhouette and great vessels are within normal limits. Osseous structures and soft tissues: No acute osseous abnormality is seen. Degenerative arthrosis of the shoulders. Impression: No acute cardiopulmonary process. .
[2018-01-16] MEDS ORDERED: SENNA LIQUID (X-PREP) 74 ML PO ONE (15:27)
[2018-01-16] MEDS: LACTULOSE 20 GM/30 ML ORAL LIQUID PO SCH ×3 (15:41→20:29)
[2018-01-16] MEDS: AMLODIPINE 10 MG TABLET PO SCH (15:46)
[2018-01-16] MEDS: METOCLOPRAMIDE 10mg/2ml INJECTION IVP PRN (19:58)
[2018-01-16] MEDS: SALINE FLUSH 10ml SYRINGE IVF PRN (19:58)
[2018-01-16] MEDS: ClonazePAM 0.5 MG TABLET PO PRN (20:00)
[2018-01-16] MEDS: ATENOLOL 50 MG TABLET PO SCH (20:29)
[2018-01-16] MEDS: PANTOPRAZOLE 40 MG INJECTION IVP SCH (22:50)
--- NOTE | 2018-01-16 23:51 | Progress Note ---
DATE OF SERVICE FINDINGS Ms. Moreno was seen again this evening on rounds. Upon entering the room she was resting comfortably. Upon awakening the patient stated that she was still having a moderate amount of discomfort within her abdomen. She states she still was unable have a bowel movement. She did appear in less distress, however. PHYSICAL EXAM VITAL SIGNS: Patient has been afebrile throughout today. Last vitals include temperature 96.5, pulse 94, respirations 18, blood pressure 161/76, SAO2 96% on room air. ABDOMEN: Palpation of the abdomen on evening rounds revealed it to be less tender. I was able to place my hand upon her skin without resulting in severe pain. I was able to palpate within her lower abdomen without resulting in evidence for peritonitis. She did have a component of voluntary guarding and continued to have pain within her lower abdomen although this was improved in comparison to this morning. LABORATORY/RADIOGRAPHIC EVALUATION I did obtain a KUB and upright of her abdomen this evening as a result of her severe abdominal pain. There is no evidence for pneumoperitoneum. Nonspecific bowel pattern was present. ASSESSMENT 63-year-old female with history for cervical cancer who presents with severe abdominal pain and bandemia of uncertain etiology. The patient's abdominal pain does appear to be slightly improving from a clinical standpoint. The patient remains to be without acute surgical abdomen. PLAN I informed the patient that I did not feel we need to proceed with surgery at this time. It does appear that her abdominal pain is beginning to slightly improve. I am still, however, concerned in regards to her severe abdominal pain. Will repeat physical examination tomorrow morning and continue to follow the patient closely. MILTON
[2018-01-17] MEDS: LACTULOSE 20 GM/30 ML ORAL LIQUID PO SCH ×4 (00:27→11:07)
[2018-01-17] MEDS: HYDROCODONE/APAP 5mg/325mg TABLET PO PRN ×3 (02:29→13:47)
[2018-01-17] MEDS: NS with KCL 20 mEq 1,000 ML IV SCH ×2 (02:56→07:48)
[2018-01-17] MEDS: MetroNIDAZOLE PB 500 MG/100 ML BAG IV SCH ×3 (04:08→23:30)
--- NOTE | 2018-01-17 08:41 | General Surgery Progress Note ---
Subjective Patient reports: pain is less (but still quite tender on palpatioin), vomiting ( during the night, she kept the X-Prep down, but vomitied after the Lactulose, ) - Vital Signs Last Vital Signs Temp 97.8 F 01/17/18 07:44 Pulse 84 01/17/18 07:44 Resp 20 01/17/18 07:44 BP 156/75 H 01/17/18 07:44 Pulse Ox 96 01/17/18 07:44 - Laboratory Result Diagrams: 01/17/18 03:55 01/17/18 03:55 Laboratory Tests 01/15/18 01/16/18 01/16/18 17:23 03:53 10:25 Band Neutrophils % 5.0 42.0 H D 57.0 H D 01/17/18 03:55 Band Neutrophils % 36.0 H D - Microbiogy Microbiology 01/16/18 11:35 Port/Picc Blood Culture - Preliminary Culture Initiated - Results Pending 01/16/18 11:32 Port/Picc Blood Culture - Preliminary Culture Initiated - Results Pending - Pathology KUB yesterday: Findings: Non-obstructive bowel gas pattern. Moderate colonic gas and stool. No intraperitoneal free air. Cholecystectomy clips noted. Degenerative spondylosis of the visualized spine. Calcified pelvic phleboliths. No acute osseous abnormality identified. The visualized lung bases appear clear. Impression: Moderate colonic gas and stool with a nonobstructive bowel gas pattern. - Abnormal Exam Abdominal: hypoactive bowel sounds (rare), firm, distended, tender, voluntary guarding - Normal Exam General: resting, awakens easily Cardiovascular: regular rate Respiratory: clear bilaterally, no labored breathing Psychiatric: normal affect Assessment and Plan (1) Abdominal pain Current Visit: Yes Status: Acute (2) Bandemia without diagnosis of specific infection Current Visit: Yes Status: Acute Plan: Abdomen less tender today, no results from X-prep and Lactulose. Bandemia slightly improved from yesterday. Multiple enemas by nursing but no significant results. Dr. Grubbs orders Gastrografin enema, this may stimulate bowel activity and check for masses that may have been hidden due to large volume of stool. Hospital Course Summary Disclaimer: The visit summary below is not to be considered part of the above Progress Note. Hospital Course: 01/15/18 Admitted with abdominal pain and possible colitis. Cipro and Flagyl initiated. 6/18/18 Patient presented with severe abdominal pain, fever, and subsequent identification of lactic acidosis. CT abdomen was initially interpreted as having changes of sigmoid colitis not confirmed on final reading. Abdominal coverage with Cipro and Flagyl initiated in conjunction with IV fluids. Blood cultures have been subsequently drawn with one drawn through PAC. Marked leukocytosis with drop in ANC noted this morning; white count repeated and not as low as initially described. Discussed with Dr. Hankins-not expected with recent course of Avastin. Suspect leukocytosis manifestation of infection although source of infection unclear. Chest x-ray to be obtained although lung bases clear on CT. Enemas initiated for constipation and lactulose added orally for management of constipation. Dr. Grubbs consulted to assist in management of abdominal symptoms. Potassium being replaced IV; vitamin B-12/TSH/folic acid will be checked in evaluation of macrocytosis. Hyperglycemia likely stress [id number] ordered, corrective insulin if needed.
[2018-01-17] MEDS: ENOXAPARIN 40 MG/0.4 ML INJECTION SQ SCH (09:17)
[2018-01-17] MEDS: PANTOPRAZOLE 40 MG INJECTION IVP SCH (09:18)
[2018-01-17] MEDS: SALINE FLUSH 10ml SYRINGE IVF PRN ×4 (09:18→13:57)
[2018-01-17] MEDS: POTASSIUM CHLORIDE INJ 10 MEQ in NS 100 ML IV SCH ×4 (10:04→15:09)
[2018-01-17] MEDS: ONDANSETRON 4 MG/2 ML INJECTION IVP PRN (10:55)
[2018-01-17] MEDS: MORPHINE SULFATE 4mg INJECTION IVP PRN (11:03)
[2018-01-17] MEDS ORDERED: DIATRIZOATE MEGLUMINE/SOD. (66%/10%) 120ml SOLN ONE (12:04)
--- NOTE | 2018-01-17 14:24 | Fluoroscopy Report ---
Indication:rule out colonic mass Procedure:FL barium enema XF SINGLE CONTRAST COLON: Supervisor Scouring Pads KUB: A single sales operations associate AP abdominal radiograph was obtained. A large amount of colonic gas is visualized, most marked in the left colon. A large amount of stool is noted in the ascending and transverse colon. Technique: Using fluoroscopic guidance and meticulous graded compression, a single contrast Gastrografin enema was performed. Fluoroscopic imaging was obtained in the right lateral, supine AP, LPO, and RPO positions. Due to AP abdominal radiographs were obtained after the administration of contrast. Findings: There is a large amount of residual stool in the colon, most marked in the ascending and transverse colon. The remainder of the exam is negative. No diverticulosis. There is there is no obvious mass. There is no obstruction. Impression: Large amount of residual stool in the colon. There is no obvious mass. Fluoroscopy dose: 49.86 mGy (Cumulative air kerma) Ash Lisa RPA/NADEGE performed this under my direct supervision. .
--- NOTE | 2018-01-17 14:50 | Progress Note ---
.. DATE 01/17/2018 FINDINGS Mrs. Moreno this morning stated that she was still having a component of abdominal pain. She states that her pain however has improved in comparison to yesterday. The patient was lying on her side upon my entering her hospital room earlier today and did not appear to be in acute distress. OBJECTIVE VITALS: Patient has remained afebrile and normotensive. Vitals this morning include a temperature of 97.8, pulse 84, respirations 20, blood pressure 156/75 , SaO2 96% on room air. HEENT: Normocephalic. Pupils are equally round and react to light and accommodation. CHEST: Clear to auscultation bilaterally. HEART: Regular rate and rhythm. Normal S1, S2, without gallops, murmurs or clicks. ABDOMEN: Visualization of the abdomen does not reveal it to be markedly distended. Palpation of the abdomen today did indeed reveal less tenderness. I was able to palpate throughout the abdomen. No carlin peritoneal signs were present. The patient, however, continued to have a component of voluntary guarding within the left lower quadrant and right lower quadrant and suprapubic region. LABORATORY/RADIOGRAPHIC/REVIEW OF PATIENT'S CHART Patient had a CBC today and her white count has increased to 5.0. Her bandemia has improved from 57% to 36%. Neutrophils are 48%. BMP was obtained today and her potassium was low at 2.7. CRP was obtained and found to be markedly elevated at 590. Plasma lactate level is improving. Upon admission it was 3.4 , had decreased to 2.3 and today was 1.3. ASSESSMENT 63-year-old female with history for cervical cancer who presents with a severe abdominal pain of uncertain etiology. Patient seems to be improving from a clinical standpoint. PLAN The patient informs me that she still was unable to have a bowel movement. She did have some nausea and vomiting after being given oral cathartics yesterday. On CT scan there was a considerable amount of stool burden present mostly within her ascending colon region. Will go ahead today and obtain a Gastrografin enema to rule out a potential colonic stricture or mass, resulting in this significant stool burden in her right colon. Perhaps this Gastrografin enema may also be therapeutic in nature and facilitate resolution of her severe constipation. Patient at this time is without acute surgical abdomen. Will continue to follow closely. [facility]ITALMarie
[2018-01-17] MEDS: AMLODIPINE 10 MG TABLET PO SCH (15:27)
[2018-01-17] MEDS: METOCLOPRAMIDE 10mg/2ml INJECTION IVP PRN ×2 (15:27→21:38)
[2018-01-17] MEDS: SENNA + DOCUSATE TABLET PO SCH ×2 (15:27→21:38)
[2018-01-17] MEDS: POLYETHYL GLYCOL 3350 17gm PACKET PO SCH ×3 (15:58→21:37)
--- NOTE | 2018-01-17 19:32 | Progress Note ---
- Date 01/17/18 Subjective: Maryann was seen this morning prior to Gastrografin study. The time she reported she had recurrent nausea and vomiting overnight with bilious emesis. She attributed vomiting to lactulose. Abdominal pain was slightly better she thought but still present. She reported having no bowel movements overnight. She denied dyspnea, fevers, chills, dysuria, or difficulty voiding. Objective Vital signs: Temperature 99.9 F 01/17/18 18:23 Pulse Rate 100 01/17/18 18:23 Respiratory Rate 18 01/17/18 18:23 Blood Pressure 177/80 H 01/17/18 18:23 Pulse Oximetry 95 01/17/18 18:23 NAD, appears more comfortable than when seen yesterday Conjunctiva clear, sclera anicteric, oral membranes dry Respirations nonlabored, diminished airflow, breath sounds clear Regular rhythm, S1-S2 Abdomen soft, moderately distended, allows gentle palpation today but is diffusely tender, diminished bowel sounds Extremities without edema; skin without rash Height/Weight/BMI: Height 1.63 m Weight 57.6 kg Body Mass Index 20.7 Results - Labs CBC & Chem 7: 01/17/18 03:55 01/17/18 16:56 Labs: S48 B36 L7 M8 Electrolytes unremarkable this morning except potassium of 0.7, creatinine 0.6 CRP 590.7, lactic acid 1.3 Microbiology Results: Microbiology 01/16/18 11:35 Port/Picc Blood Culture - Preliminary No Growth After 1 Day 01/16/18 11:32 Port/Picc Blood Culture - Preliminary No Growth After 1 Day - Imaging and Cardiology Abdominal x-ray Status: image reviewed by me (Gastrografin study reviewed by myself/radiology report reviewed-large amount of stool throughout the colon with residual stool post study. No obvious mass.) Assessment and Plan (1) Sepsis Current visit: Yes Status: Acute Assessment and Plan: Impression: Severe sepsis Abdominal pain, severe Neutropenia, acute Constipation Hyperglycemia, acute Macrocytosis Hypertension Cervical cancer, hx of chemotherapy/XRT Hypokalemia-not POA Nausea/vomiting Plan: Blood cultures negative after 1 day, continue abdominal coverage with Cipro/ Flagyl. Exam slightly improved. Gastrografin without evidence of mass, continue laxatives-increase MiraLAX to 34 g 4 times a day given intolerance of lactulose. May require colonoscopy prep to clear colon. Enemas/Dulcolax suppositories prn. Potassium replaced IV throughout the day, continuing this evening. Continue IV hydration. B-12 pending; TSH normal. Accu-Cheks minimally elevated-consistently under 150 today, discontinue. Discussed with surgery. Family updated throughout the day. DVT Prophylaxis: Lovenox GI Prophylaxis: Protonix Resuscitation Status: Full Code - Physician Narrative Narrative: Date: 01/17/18 Time: 1928 Hospital Course Summary Disclaimer: The visit summary below is not to be considered part of the above Progress Note. Hospital Course: 01/15/18 Admitted with abdominal pain and possible colitis. Cipro and Flagyl initiated. 01/16/18 Patient presented with severe abdominal pain, fever, and subsequent identification of lactic acidosis. CT abdomen was initially interpreted as having changes of sigmoid colitis not confirmed on final reading. Abdominal coverage with Cipro and Flagyl initiated in conjunction with IV fluids. Blood cultures have been subsequently drawn with one drawn through PAC. Marked leukocytosis with drop in ANC noted this morning; white count repeated and not as low as initially described. Discussed with Dr. aHnkins-not expected with recent course of Avastin. Suspect leukocytosis manifestation of infection although source of infection unclear. Chest x-ray to be obtained although lung bases clear on CT. Enemas initiated for constipation and lactulose added orally for management of constipation. Dr. Grubbs consulted to assist in management of abdominal symptoms. Potassium being replaced IV; vitamin B-12/TSH/folic acid will be checked in evaluation of macrocytosis. Hyperglycemia likely stress [id number] ordered, corrective insulin if needed. 01/17/18 Blood cultures negative after 1 day, continue abdominal coverage with Cipro/ Flagyl. Exam slightly improved. Gastrografin without evidence of mass, continue laxatives-increase MiraLAX to 34 g 4 times a day given intolerance of lactulose. May require colonoscopy prep to clear colon. Enemas/Dulcolax suppositories prn. Potassium replaced IV throughout the day, continuing this evening. Continue IV hydration. B-12 pending; TSH normal. Accu-Cheks minimally elevated-consistently under 150 today, discontinue.
[2018-01-17] MEDS: POTASSIUM CHLORIDE PREMIX 10 MEQ/100 ML BAG IV SCH ×2 (20:15→21:45)
--- NOTE | 2018-01-17 20:18 | Progress Note ---
DATE OF SERVICE 01/17/2018 FINDINGS Ms. Moreno this evening states that she was feeling better. She has had several loose stools since her Gastrografin enema earlier today. The patient states that she continues to have abdominal discomfort but this is not "severe" in nature as noted previously. PHYSICAL EXAM VITAL SIGNS: Afebrile, normotensive. Please refer to EMR. ABDOMEN: Soft, less tender this evening. LABORATORY/RADIOGRAPHIC EVALUATION The patient did undergo a Gastrografin enema earlier today that did reveal a significant amount of residual stool within her colon. There was no evidence for an obvious mass. ASSESSMENT 63-year-old female with onset of severe abdominal pain, leukocytosis, and finding of marked constipation upon radiographic evaluation. Patient improving from a clinical standpoint. PLAN Will go ahead and give the patient some clear liquids this evening. Will continue to follow closely. Recheck lab tomorrow. [place]
[2018-01-17] MEDS: Oxycodone CR 20 MG TABLET PO PRN (21:39)
[2018-01-17] MEDS: ATENOLOL 50 MG TABLET PO SCH (21:48)
[2018-01-17] MEDS: BISACODYL 10 MG SUPPOSITORY RECTALLY PRN (21:49)
[2018-01-18] MEDS: ClonazePAM 0.5 MG TABLET PO PRN ×2 (00:31→20:02)
[2018-01-18] MEDS: POTASSIUM CHLORIDE PREMIX 10 MEQ/100 ML BAG IV SCH ×2 (00:33→01:40)
[2018-01-18] MEDS: SALINE FLUSH 10ml SYRINGE IVF PRN (00:41)
[2018-01-18] MEDS: ONDANSETRON 4 MG/2 ML INJECTION IVP PRN ×2 (00:41→21:51)
[2018-01-18] MEDS: HYDROCODONE/APAP 5mg/325mg TABLET PO PRN ×4 (02:52→20:03)
[2018-01-18] MEDS: NS with KCL 20 mEq 1,000 ML IV SCH ×5 (03:15→21:30)
[2018-01-18] MEDS: POLYETHYL GLYCOL 3350 17gm PACKET PO SCH ×4 (04:14→21:52)
[2018-01-18] MEDS: MetroNIDAZOLE PB 500 MG/100 ML BAG IV SCH ×3 (04:54→21:08)
--- NOTE | 2018-01-18 09:03 | XRay Report ---
Indication: abd pain, obstipation PROCEDURE: PA view of the chest with supine and upright AP views of the abdomen Encounter: Initial Comparison: January 16, 2018 FINDINGS: Small right pleural effusion with right lower lobe probable atelectasis. Left lung is clear. No pneumothorax. The heart size, pulmonary vasculature and mediastinum are within normal limits. Right IJ port catheter. There is no free air on the upright view. The bowel gas pattern is nonobstructive and nonspecific. Residual contrast material with air-fluid levels seen in the colon. Decreased colonic stool burden with a moderate amount remaining in the cecum. Calcified uterine fibroid. IMPRESSION: 1. Small right effusion. 2. No evidence of acute obstruction. Colonic ileus. .
[2018-01-18] MEDS: PANTOPRAZOLE 40 MG INJECTION IVP SCH (09:26)
[2018-01-18] MEDS: ENOXAPARIN 40 MG/0.4 ML INJECTION SQ SCH (09:26)
[2018-01-18] MEDS: SENNA + DOCUSATE TABLET PO SCH ×2 (09:26→21:52)
[2018-01-18] MEDS: Oxycodone CR 20 MG TABLET PO PRN ×2 (09:48→21:52)
[2018-01-18 13:54] VITALS: BMI 21.8
--- NOTE | 2018-01-18 15:43 | Progress Note ---
- Date 01/18/18 Subjective: Maryann is still having abdominal pain and bloating but is improving. After x-ray this morning she's had several bowel movements, mostly loose/watery but with some formed component. She denies nausea today and has been tolerating liquids. She denies SOA or dizziness. She's been ambulating well. Objective Vital signs: Temperature 96.5 F L 01/18/18 12:00 Pulse Rate 85 01/18/18 15:17 Respiratory Rate 16 01/18/18 12:00 Blood Pressure 143/70 H 01/18/18 15:17 Pulse Oximetry 97 01/18/18 15:17 Height/Weight/BMI: Height 1.63 m Weight 57.7 kg Body Mass Index 21.8 - Constitutional Present: well nourished, well developed, thin - Routine HEENT Exam Head: Present: normocephalic Eye: Present: PERRL. Absent: conjunctival icterus, scleral injection ENT: Present: mucous membranes moist, oropharynx clear. Absent: dentition normal - Routine Respiratory Exam Present: CTA bilaterally - Routine Cardiovascular Exam Present: RRR, S1, S2 - Routine Abdominal Exam Present: soft, normoactive bowel sounds (diminished on right), tenderness ( diffuse), distended - Routine Extremities Exam Present: no edema - Routine Musculoskeletal Exam Musculoskeletal: Present: moving extremities well - Routine Skin Exam Present: intact, dry, warm - Routine Neurological Exam Present: alert, oriented X3, normal speech - Routine Psychiatric Exam Present: normal affect, normal thought process, cooperative Results - Labs CBC & Chem 7: 01/18/18 04:35 01/18/18 04:35 Microbiology Results: Microbiology 01/16/18 11:35 Port/Picc Blood Culture - Preliminary No Growth After 2 Days 01/16/18 11:32 Port/Picc Blood Culture - Preliminary No Growth After 2 Days Assessment and Plan (1) Sepsis Current visit: Yes Status: Acute Assessment and Plan: Impression: Severe sepsis Abdominal pain, severe Neutropenia, acute Constipation Hyperglycemia, acute Macrocytosis Hypertension Cervical cancer, hx of chemotherapy/XRT Hypokalemia-not POA Nausea/vomiting Plan: BC negative at 2 days; continue cipro/flagyl. BM frequency increasing and abdominal pain improving. Tolerating oral fluids. Continue high-dose MirLAX K 3.5; cont NS with KCl. May need additional IV replacement. B12 508. CXR/abd x-ray personally reviewed; mod-lg amount of stool still present. D/W Dr. Tay. DVT Prophylaxis: Lovenox GI Prophylaxis: Protonix Resuscitation Status: Full Code - Physician Narrative Physician: Alissa Tay MD Narrative: Date: 01/18/18 Time: 1715 I have independently evaluated and examined this patient. I reviewed the chart, the patient's history, and the PLANT CHANGER/PA's documented findings as above. We discussed and formulated the assessment and plan as above with additions as below: Mrs. Moreno reports that abdominal pain is less intense and that her abdomen is softer. She had several moderate-large stools overnight and this morning which were largely liquid but patient reports some soft stool increasingly present and that she feels like things are moving in progress is being made. Appears much more comfortable, ambulating in the room without assistance Respirations nonlabored, abdomen remained diffusely tender but moderate pressure can be exerted on the abdomen today. Blood cultures negative at 2 days; abdominal series reviewed by myself-chest remains clear, large amount of stool persists in the right abdomen, residual Gastrografin with air-fluid levels present throughout colon suggesting colonic ileus. Discussed with Dr. Grubbs earlier today, continue current regimen. Patient encouraged to increase ambulation/minimize narcotics. No IV narcotics 24 hours. Hospital Course Summary Disclaimer: The visit summary below is not to be considered part of the above Progress Note. Hospital Course: 01/15/18 Admitted with abdominal pain and possible colitis. Cipro and Flagyl initiated. 01/16/18 Patient presented with severe abdominal pain, fever, and subsequent identification of lactic acidosis. CT abdomen was initially interpreted as having changes of sigmoid colitis not confirmed on final reading. Abdominal coverage with Cipro and Flagyl initiated in conjunction with IV fluids. Blood cultures have been subsequently drawn with one drawn through PAC. Marked leukocytosis with drop in ANC noted this morning; white count repeated and not as low as initially described. Discussed with Dr. Hankins-not expected with recent course of Avastin. Suspect leukocytosis manifestation of infection although source of infection unclear. Chest x-ray to be obtained although lung bases clear on CT. Enemas initiated for constipation and lactulose added orally for management of constipation. Dr. Grubbs consulted to assist in management of abdominal symptoms. Potassium being replaced IV; vitamin B-12/TSH/folic acid will be checked in evaluation of macrocytosis. Hyperglycemia likely stress [id number] ordered, corrective insulin if needed. 01/17/18 Blood cultures negative after 1 day, continue abdominal coverage with Cipro/ Flagyl. Exam slightly improved. Gastrografin without evidence of mass, continue laxatives-increase MiraLAX to 34 g 4 times a day given intolerance of lactulose. May require colonoscopy prep to clear colon. Enemas/Dulcolax suppositories prn. Potassium replaced IV throughout the day, continuing this evening. Continue IV hydration. B-12 pending; TSH normal. Accu-Cheks minimally elevated-consistently under 150 today, discontinue. 01/18/18 BC negative at 2 days; continue cipro/flagyl. BM frequency increasing and abdominal pain improving. Tolerating oral fluids. Continue high-dose MirLAX K 3.5; cont NS with KCl. May need additional IV replacement. B12 508. CXR/abd x-ray personally reviewed; mod-lg amount of stool still present.
--- NOTE | 2018-01-18 16:25 | Progress Note ---
DATE: 01/18/2018 FINDINGS Upon entering Mrs. Moreno's room today she was exiting from her bathroom. She stated that she had just had a fairly large liquidy stool containing some solid material as well. She states that her abdominal pain continues to improve. The patient states that she is "feeling significantly better." VITALS: Afebrile. Normotensive. Please refer to EMR. HEENT: Normocephalic. Pupils are equal, round and reactive to light and accommodation. CHEST: Clear to auscultation bilaterally. HEART: Regular rate and rhythm. Normal S1 and S2 without gallops, murmurs or clicks. ABDOMEN: Palpation of the abdomen reveals significantly less tenderness. The patient still has some minimal tenderness within her lower abdomen but today was without evidence for guarding or rebound. LABORATORY/RADIOGRAPH EVALUATION The patient had a CBC today and her white count is overall stable at 7000. Bandemia continues to improve at 20%. CMP was obtained and found to be without marked abnormalities. Radiographically, she did undergo a KUB and upright today. She continues to have a fair amount of contrast with an air-fluid level involving her transverse colon. There is decreased stool burden. A moderate amount of stool, however, remains within the cecal region. ASSESSMENT 63-year-old female with a presentation of severe abdominal pain, constipation, sepsis. Patient making marked improvement from a clinical standpoint. PLAN Would recommend continuing with ongoing oral laxatives. Her MiraLAX has been increased to q.i.d. dosing. It does appear from a clinical standpoint that her bowel activity is improving. If she would fail to improve from a clinical standpoint with the current medical management and develop increasing colonic distention upon radiograph evaluation, one at that time might consider the administration of neostigmine. At this time, however, would recommend continuing with current medical therapy and following the patient from radiographic and clinical standpoint. MILTON
[2018-01-18] MEDS: AMLODIPINE 10 MG TABLET PO SCH (18:12)
[2018-01-18] MEDS: ATENOLOL 50 MG TABLET PO SCH (21:53)
[2018-01-19] MEDS: NS with KCL 20 mEq 1,000 ML IV SCH ×3 (03:12→16:02)
[2018-01-19] MEDS: MetroNIDAZOLE PB 500 MG/100 ML BAG IV SCH ×3 (04:56→21:29)
[2018-01-19] MEDS: POLYETHYL GLYCOL 3350 17gm PACKET PO SCH ×4 (05:13→21:18)
[2018-01-19] MEDS: METOCLOPRAMIDE 10mg/2ml INJECTION IVP PRN (08:13)
[2018-01-19] MEDS: PANTOPRAZOLE 40 MG INJECTION IVP SCH (08:13)
[2018-01-19] MEDS: Oxycodone CR 20 MG TABLET PO PRN ×2 (08:14→19:35)
--- NOTE | 2018-01-19 09:56 | Progress Note ---
- Date 01/19/18 Subjective: Maryann is feeling worse than yesterday. She began having increased abdominal pain yesterday afternoon after going for a walk, and is more bloated this am. She hasn't had a bowel movement since yesterday morning. She is not nauseated, however. She is also able to swallow without pain for the first time, after a pill became stuck as she tried to swallow it several days ago. No SOA or chest pain. Sister is present and inquires if her constipation/pain could be related to radiation. Objective Vital signs: Temperature 97.4 F 01/19/18 07:00 Pulse Rate 84 01/19/18 07:00 Respiratory Rate 97 H 01/19/18 07:00 Blood Pressure 155/83 H 01/19/18 07:00 Pulse Oximetry 95 01/19/18 07:00 Height/Weight/BMI: Height 1.63 m Weight 57.7 kg Body Mass Index 21.8 - Constitutional Present: no acute distress, well nourished, well developed, thin - Routine HEENT Exam Head: Present: normocephalic Eye: Present: PERRL. Absent: conjunctival icterus, scleral injection ENT: Present: mucous membranes moist, oropharynx clear - Routine Respiratory Exam Present: CTA bilaterally - Routine Cardiovascular Exam Present: RRR, S1, S2 - Routine Abdominal Exam Present: tenderness (diffuse), distended. Absent: normoactive bowel sounds ( very hypoactive) - Routine Extremities Exam Present: no edema - Routine Musculoskeletal Exam Musculoskeletal: Present: moving extremities well - Routine Skin Exam Present: intact, dry, pallor, warm - Routine Neurological Exam Present: alert, oriented X3, normal speech - Routine Psychiatric Exam Present: normal affect, normal thought process, cooperative Results - Labs CBC & Chem 7: 01/19/18 18:40 01/19/18 05:33 Microbiology Results: Microbiology 01/16/18 11:35 Port/Picc Blood Culture - Preliminary No Growth After 2 Days 01/16/18 11:32 Port/Picc Blood Culture - Preliminary No Growth After 2 Days Assessment and Plan (1) Sepsis Current visit: Yes Status: Acute Assessment and Plan: Impression: Severe sepsis Abdominal pain, severe Neutropenia, acute Constipation Hyperglycemia, acute Macrocytosis Hypertension Cervical cancer, hx of chemotherapy/XRT Hypokalemia-not POA Nausea/vomiting Anemia-not POA Plan: BC negative at 2 days - 72 hour results to be posted later this am; continue cipro/flagyl at this time. WBC normal; bands up slightly from 20 to 22%. Afebrile. Increasing distention and abdominal pain today. Tolerating oral fluids. Continue high-dose MirLAX K 3.4; cont NS with KCl. K bolus ordered given increased abdominal symptoms today. Mg 2.1. Phos low yesterday at 2.3 - reassess this am. D/W Dr. Tay. Also D/W RN - she's trying to minimize IV narcotic use. DVT Prophylaxis: SCD's GI Prophylaxis: Protonix Resuscitation Status: Full Code - Physician Narrative Physician: Alissa Tay MD Narrative: Date: 01/19/18 Time: 2109 I have independently evaluated and examined this patient. I reviewed the chart, the patient's history, and the RELAY MAN/PA's documented findings as above. We discussed and formulated the assessment and plan as above with additions as below: Mrs. Moreno reported increased abdominal bloating and pain when seen this morning. She described multiple stools yesterday both liquid and with some fecal content. Earlier this evening nursing reported bowel movement with moderate amount of bright red blood per rectum. At that patient patient reported that she had a small amount of bleeding about a week ago, no bleeding in the intervening time until this evening. She denies pain with bowel movements or lightheadedness. Fatigued, uncomfortable appearing female Abdomen appears more distended today, diffusely tender (although improved from admission), bowel sounds present Hemoglobin repeated this evening following reported blood loss - stable from this morning 12.0-11.5. Flat/upright KUBs obtained earlier today and reviewed by myself-decreased stool volume present, Gastrografin has cleared compared to yesterday's films, multiple air-fluid levels consistent with ileus-discussed with radiology. Repeat hemoglobin at 11 PM, type and screen to be obtained at that time as well. Nursing to monitor for additional blood loss. Blood pressure stable. Dr. Grubbs notified of rectal bleeding. CBC/INR in a.m. If abdominal bloating worse tomorrow may require repeat CT imaging of abdomen. Hospital Course Summary Disclaimer: The visit summary below is not to be considered part of the above Progress Note. Hospital Course: 01/15/18 Admitted with abdominal pain and possible colitis. Cipro and Flagyl initiated. 01/16/18 Patient presented with severe abdominal pain, fever, and subsequent identification of lactic acidosis. CT abdomen was initially interpreted as having changes of sigmoid colitis not confirmed on final reading. Abdominal coverage with Cipro and Flagyl initiated in conjunction with IV fluids. Blood cultures have been subsequently drawn with one drawn through PAC. Marked leukocytosis with drop in ANC noted this morning; white count repeated and not as low as initially described. Discussed with Dr. Hankins-not expected with recent course of Avastin. Suspect leukocytosis manifestation of infection although source of infection unclear. Chest x-ray to be obtained although lung bases clear on CT. Enemas initiated for constipation and lactulose added orally for management of constipation. Dr. Grubbs consulted to assist in management of abdominal symptoms. Potassium being replaced IV; vitamin B-12/TSH/folic acid will be checked in evaluation of macrocytosis. Hyperglycemia likely stress [id number] ordered, corrective insulin if needed. 01/17/18 Blood cultures negative after 1 day, continue abdominal coverage with Cipro/ Flagyl. Exam slightly improved. Gastrografin without evidence of mass, continue laxatives-increase MiraLAX to 34 g 4 times a day given intolerance of lactulose. May require colonoscopy prep to clear colon. Enemas/Dulcolax suppositories prn. Potassium replaced IV throughout the day, continuing this evening. Continue IV hydration. B-12 pending; TSH normal. Accu-Cheks minimally elevated-consistently under 150 today, discontinue. 01/18/18 BC negative at 2 days; continue cipro/flagyl. BM frequency increasing and abdominal pain improving. Tolerating oral fluids. Continue high-dose MirLAX K 3.5; cont NS with KCl. May need additional IV replacement. B12 508. 01/19/18 BC negative at 2 days - 72 hour results to be posted later this am; continue cipro/flagyl at this time. WBC normal; bands up slightly from 20 to 22%. Afebrile. Increasing distention and abdominal pain today. Tolerating oral fluids. Continue high-dose MirLAX K 3.4; cont NS with KCl. K bolus ordered given increased abdominal symptoms today. Mg 2.1. Phos low yesterday at 2.3 - reassess this am.
[2018-01-19] MEDS: ENOXAPARIN 40 MG/0.4 ML INJECTION SQ SCH (10:13)
[2018-01-19] MEDS: BISACODYL 10 MG SUPPOSITORY RECTALLY PRN (10:13)
[2018-01-19] MEDS ORDERED: LIDOCAINE 1% INJ 10 MG, POTASSIUM CHLORIDE INJ 10 MEQ in NS 100 ML IV SCH (10:15)
[2018-01-19] MEDS: SENNA + DOCUSATE TABLET PO SCH ×2 (11:11→21:18)
[2018-01-19] MEDS: HYDROCODONE/APAP 5mg/325mg TABLET PO PRN ×2 (11:11→23:52)
[2018-01-19] MEDS: POTASSIUM CHLORIDE PREMIX 10 MEQ/100 ML BAG IV SCH ×4 (12:09→17:13)
--- NOTE | 2018-01-19 13:06 | XRay Report ---
Indication: obstipation/partial obstruction? PROCEDURE: XR abdomen 2V: Encounter: Initial Comparison: January 18, 2018 Findings: Interval passage of most of the prior colonic contrast. No free air identified. Lung bases are grossly clear. Nondifferential air-fluid levels are again seen in small and large bowel. No abnormally dilated small bowel loops appreciated. Impression: Multiple nondifferential air-fluid levels suggesting an ileus. .
[2018-01-19] MEDS: AMLODIPINE 10 MG TABLET PO SCH (16:00)
[2018-01-19] MEDS: ATENOLOL 50 MG TABLET PO SCH (21:18)
[2018-01-19] MEDS: ClonazePAM 0.5 MG TABLET PO PRN (21:51)
[2018-01-20] MEDS: HYDROCODONE/APAP 5mg/325mg TABLET PO PRN ×3 (03:52→19:51)
[2018-01-20] MEDS: MetroNIDAZOLE PB 500 MG/100 ML BAG IV SCH ×3 (05:21→20:11)
[2018-01-20] MEDS: MORPHINE SULFATE 4mg INJECTION IVP PRN ×3 (07:04→20:38)
[2018-01-20] MEDS: SENNA + DOCUSATE TABLET PO SCH ×2 (08:30→20:12)
[2018-01-20] MEDS: PANTOPRAZOLE 40 MG INJECTION IVP SCH (08:30)
[2018-01-20] MEDS: Oxycodone CR 20 MG TABLET PO PRN ×2 (08:30→22:38)
[2018-01-20] MEDS: NS with KCL 20 mEq 1,000 ML IV SCH ×3 (08:30→20:10)
[2018-01-20] MEDS: POLYETHYL GLYCOL 3350 17gm PACKET PO SCH ×3 (08:30→20:05)
[2018-01-20] MEDS: ENOXAPARIN 40 MG/0.4 ML INJECTION SQ SCH (08:31)
--- NOTE | 2018-01-20 10:01 | Progress Note ---
DATE 01/19/2018 FINDINGS Ms. Moreno was seen earlier today on evening rounds. She was sitting upright on the edge of the bed and was conversing with several friends. She did not appear to be any element of discomfort upon my entering the room. The patient informed me that earlier today she had been "straining" to have a bowel movement. Patient states that after "straining" she did have a small bowel movement and had noted some blood. She describes this as being about a "half a cup of blood." She continues to have a component of ongoing generalized abdominal discomfort but denies severe abdominal pain as she was experiencing upon her initial presentation. OBJECTIVE VITALS: Afebrile. Normotensive. Last recorded vitals include temperature 96.1 , pulse 82, respirations 20, blood pressure 161/78, SaO2 95% on room air. HEENT: Normocephalic. Pupils are equally round and react to light and accommodation. CHEST: Clear to auscultation bilaterally. HEART: Regular rate and rhythm. Normal S1, S2, without gallops, murmurs or clicks. ABDOMEN: Visualization of the abdomen does reveal it to be slightly more distended today. The patient was sitting upright and palpation of her abdomen did reveal a component of some generalized discomfort. She however was without evidence for guarding or rebound. LABORATORY/RADIOGRAPHIC EVALUATION Patient's white count remains stable at 6.8. Hemoglobin is stable at 11.5. Still has a component of bandemia at 22% although this is improved from a couple of days ago when it was 57%. BMP obtained and found to be without marked abnormalities. Potassium is slightly low at 3.4. Radiographically, the patient did have a KUB and upright today. Visibly there is significantly less stool within her colon as noted previously upon her initial films. One now can see more of an ileus pattern with both small bowel and colon showing a component of air fluid levels and some distention. Dictated report from radiology also is stating that this is consistent with that of a ileus. ASSESSMENT 63-year-old female with initial presentation of severe abdominal pain, sepsis, neutropenia, history for cervical cancer. Patient making clinical improvement but now has radiographic evidence consistent with that of an ileus. Ongoing bandemia. PLAN The patient remains to be without an acute surgical abdomen. I agree with current management of this patient. She is being treated empirically and is on Ciprofloxacin and Flagyl. The patient is being treated empirically for peptic ulcer disease/ulcer prophylaxis and is on Protonix 40 mg IV daily. I do believe that her rectal bleeding earlier today was likely hemorrhoidal in nature. Continue to correct electrolyte abnormalities. Will continue to follow with serial abdominal examinations and radiographic evaluation. Hopefully the patient will continue to improve and be able to be discharged within next 24-48 hours. MTDD
[2018-01-20] MEDS: ClonazePAM 0.5 MG TABLET PO PRN (12:48)
[2018-01-20] MEDS ORDERED: BISACODYL 10 MG SUPPOSITORY RECTALLY ONE (14:36)
--- NOTE | 2018-01-20 15:04 | Progress Note ---
- Date 01/20/18 Subjective: Maryann is seen today in follow up for ileus. She reports having a difficult morning as he had increase severe left-sided abdominal pain. She reports after having a bowel movement pain did mildly improve. She continues to have intermittent episodes of spasm-like abdominal pain accompanied with intermittent hiccups. She has been tolerating sips of liquid and a sip of insure without nausea or vomiting. However, oral intake does cause her to fill quite bloated and full. She is voiding without difficulty, had one bowel movement this morning with mucus and small amount of blood. Objective Vital signs: Temperature 97.5 F 01/20/18 11:52 Pulse Rate 78 01/20/18 11:52 Respiratory Rate 20 01/20/18 12:48 Blood Pressure 148/69 H 01/20/18 11:52 Pulse Oximetry 97 01/20/18 11:52 Height/Weight/BMI: Height 1.63 m Weight 57.7 kg Body Mass Index 21.8 - Constitutional Present: mild distress, well nourished, well developed - Routine HEENT Exam Eye: Present: EOMI ENT: Present: mucous membranes moist, dentition normal - Routine Respiratory Exam Present: CTA bilaterally. Absent: wheezes - Routine Cardiovascular Exam Present: RRR, S1, S2. Absent: murmur - Routine Abdominal Exam Present: tenderness (Left sided tenderness), guarding. Absent: soft, normoactive bowel sounds (hypoactive ) - Routine Extremities Exam Present: normal capillary refill - Routine Skin Exam Present: intact, dry, warm - Routine Neurological Exam Present: alert, oriented X3, CN II-XII intact, moving all extremities - Routine Lymphatic Exam Lymphatic: Absent: adenopathy - Routine Psychiatric Exam Present: normal affect, normal thought process, cooperative Results - Labs CBC & Chem 7: 01/20/18 04:12 01/20/18 04:12 Microbiology Results: Microbiology 01/16/18 11:32 Port/Picc Blood Culture - Preliminary No Growth After 4 Days 01/16/18 11:35 Port/Picc Blood Culture - Preliminary No Growth After 4 Days Assessment and Plan (1) Sepsis Current visit: Yes Status: Acute Assessment and Plan: Impression Severe sepsis Abdominal pain, severe Neutropenia, acute Constipation Hyperglycemia, acute Macrocytosis Hypertension Cervical cancer, hx of chemotherapy/XRT Hypokalemia - (Not POA) Nausea/vomiting Anemia (Not POA) Plan Continue with IV Cipro and Flagyl for treatment of possible colitis. Increase aggressive bowel motivation- will continue on current regimen of scheduled MiraLAX twice a day as well as senna +2 twice a day. Also give 2 doses of scheduled suppositories, one this afternoon and 1 at at bedtime. Scheduled Reglan 10mg IV every 6 hours Lengthy discussion, spent 30 minutes at the bedside with patient and sisters explaining ileus process, causes of pain, importance of bowel motivation and symptom control. Patient would like to try a muscle relaxer as she feels that she has a lot of abdominal wall spasms. Recommended minimizing opiate use. Patient does feel at times that she needs IV morphine. We discussed either using Prospect or morphine for breakthrough pain not both agents. Continue to follow electrolytes, check magnesium and BMP tomorrow morning Will recheck abdominal x-ray flat and upright tomorrow am Encourage ambulation QID Case discussed with nursing and attending, Dr Biswas DVT Prophylaxis: SCD's GI Prophylaxis: Protonix Resuscitation Status: Full Code - Time spent with patient Time with patient PN: 35 minutes - Physician Narrative Physician: Linus Biswas MD Narrative: Date: 01/20/18 Time: 1825 Have independently interviewed and examined pt. Chart reviewed. Case discussed with CM, family, and my EVP GENERAL COUNSEL. Care plan developed with my supervision; agree with above. Still pretty uncomfortable to ab, but feels muscle relaxant helped. Taking oral in very slowly-tends to become full and bloated with intake. Large stool this morning, little since. Moving more. Breathing stable. Lungs: decreased bilaterally CV: regular AB: soft, slight distention BS decreased EXT: no edema MSE: awake alert Gen: looks very tired and weak. Plan: Continue with antimicrobial therapy. Work on increasing bowel motivation- IV Reglan, oral Miralax, pr Dulcolax. Encourage oral intake as can tolerate- small amounts at a time, frequent intake. Encourage ambulation as will help bowel function. Monitor lab. Hospital Course Summary Disclaimer: The visit summary below is not to be considered part of the above Progress Note. Hospital Course: 01/15/18 Admitted with abdominal pain and possible colitis. Cipro and Flagyl initiated. 01/16/18 Patient presented with severe abdominal pain, fever, and subsequent identification of lactic acidosis. CT abdomen was initially interpreted as having changes of sigmoid colitis not confirmed on final reading. Abdominal coverage with Cipro and Flagyl initiated in conjunction with IV fluids. Blood cultures have been subsequently drawn with one drawn through PAC. Marked leukocytosis with drop in ANC noted this morning; white count repeated and not as low as initially described. Discussed with Dr. Hankins-not expected with recent course of Avastin. Suspect leukocytosis manifestation of infection although source of infection unclear. Chest x-ray to be obtained although lung bases clear on CT. Enemas initiated for constipation and lactulose added orally for management of constipation. Dr. Grubbs consulted to assist in management of abdominal symptoms. Potassium being replaced IV; vitamin B-12/TSH/folic acid will be checked in evaluation of macrocytosis. Hyperglycemia likely stress [id number] ordered, corrective insulin if needed. 01/17/18 Blood cultures negative after 1 day, continue abdominal coverage with Cipro/ Flagyl. Exam slightly improved. Gastrografin without evidence of mass, continue laxatives-increase MiraLAX to 34 g 4 times a day given intolerance of lactulose. May require colonoscopy prep to clear colon. Enemas/Dulcolax suppositories prn. Potassium replaced IV throughout the day, continuing this evening. Continue IV hydration. B-12 pending; TSH normal. Accu-Cheks minimally elevated-consistently under 150 today, discontinue. 01/18/18 BC negative at 2 days; continue cipro/flagyl. BM frequency increasing and abdominal pain improving. Tolerating oral fluids. Continue high-dose MirLAX K 3.5; cont NS with KCl. May need additional IV replacement. B12 508. 01/19/18 BC negative at 2 days - 72 hour results to be posted later this am; continue cipro/flagyl at this time. WBC normal; bands up slightly from 20 to 22%. Afebrile. Increasing distention and abdominal pain today. Tolerating oral fluids. Continue high-dose MirLAX K 3.4; cont NS with KCl. K bolus ordered given increased abdominal symptoms today. Mg 2.1. Phos low yesterday at 2.3 - reassess this am. 01/20/18 Continue with IV Cipro and Flagyl for treatment of possible colitis. Increase aggressive bowel motivation- will continue on current regimen of scheduled MiraLAX twice a day as well as senna +2 twice a day. Also give 2 doses of scheduled suppositories, one this afternoon and 1 at at bedtime. Scheduled Reglan 10mg IV every 6 hours Lengthy discussion, spent 30 minutes at the bedside with patient and sisters explaining ileus process, causes of pain, importance of bowel motivation and symptom control. Patient would like to try a muscle relaxer as she feels that she has a lot of abdominal wall spasms. Recommended minimizing opiate use. Patient does feel at times that she needs IV morphine. We discussed either using Prospect or morphine for breakthrough pain not both agents. Continue to follow electrolytes, check magnesium and BMP tomorrow morning Will recheck abdominal x-ray flat and upright tomorrow am Encourage ambulation QID
[2018-01-20] MEDS ORDERED: METOCLOPRAMIDE 10mg/2ml INJECTION IVP PRN (15:06)
--- NOTE | 2018-01-20 15:52 | XRay Report ---
Indication: evaluate ileus PROCEDURE: PA view of the chest with supine and upright AP views of the abdomen Encounter: Initial Comparison: January 18, 2018 and January 19, 2018 FINDINGS: The lungs are clear. There is no abnormal airspace opacity, pleural effusion or pneumothorax identified. Right IJ port catheter remains in place. The heart size, pulmonary vasculature and mediastinum are within normal limits. There is no free air on the upright view. Interval decrease in bowel gas with only a few small areas of colonic gas remaining. No abnormally dilated gas-filled bowel appreciated. Impression: Interval decrease in bowel gas could represent fluid-filled bowel loops. .
--- NOTE | 2018-01-20 16:06 | Progress Note ---
DATE 01/20/2018 FINDINGS Ms. Moreno was seen earlier this morning on rounds. Patient states that she did have several very large bowel movements last evening. Patient states that earlier this morning she was trying to get out of bed and had "pulled a muscle" within her left upper quadrant. The patient's main complaint earlier this morning was that of a "pulled muscle". She did not appear to be in acute distress. OBJECTIVE VITALS: Afebrile. Normotensive. Last recorded vitals include temperature 97.5 , pulse 78, respirations 20, blood pressure 148/69, SaO2 97% on 3.5 liters per nasal cannula. HEENT: Normocephalic. Pupils are equally round and react to light and accommodation. CHEST: Clear to auscultation bilaterally. HEART: Regular rate and rhythm. Normal S1, S2, without gallops, murmurs or clicks. ABDOMEN: Palpation of the abdomen earlier this morning revealed it to be soft. There was some tenderness noted within the left upper quadrant. I did not appreciated any evidence for guarding or rebound. LABORATORY/RADIOGRAPHIC EVALUATION Patient had a CBC today and her white count has increased to 11,000. Her bandemia however has resolved. Hemoglobin is stable at 11.0. BMP was without marked abnormalities. ASSESSMENT 63-year-old female with presentation of severe abdominal pain, sepsis, patient making marked improvement from a clinical standpoint. PLAN Patient was seen earlier this morning and did appear to be improving. I recommend that we advance her diet as tolerated and continue to follow her from a clinical standpoint. Once she is tolerating a regular diet and her abdominal pain has essentially resolved, would recommend discharge at that time. The patient at this time remains without "acute surgical abdomen". I will be leaving town tomorrow for vacation over the course of the next week. Dr. Webb will be covering over the course of this upcoming weekend. [place]
[2018-01-20] MEDS: AMLODIPINE 10 MG TABLET PO SCH (16:07)
[2018-01-20] MEDS: CYCLOBENZAPRINE 10 MG TABLET PO PRN (16:07)
[2018-01-20] MEDS: METOCLOPRAMIDE 10mg/2ml INJECTION IVP SCH ×2 (16:08→20:11)
[2018-01-20] MEDS: SALINE FLUSH 10ml SYRINGE IVF PRN (16:19)
[2018-01-20] MEDS ORDERED: Bisacodyl EC TAB 5 MG TABLET PO ONE (20:00)
[2018-01-20] MEDS: ATENOLOL 50 MG TABLET PO SCH (20:12)
[2018-01-21] MEDS: CYCLOBENZAPRINE 10 MG TABLET PO PRN ×2 (00:30→15:19)
[2018-01-21] MEDS: METOCLOPRAMIDE 10mg/2ml INJECTION IVP SCH ×4 (03:34→20:46)
[2018-01-21] MEDS: MetroNIDAZOLE PB 500 MG/100 ML BAG IV SCH ×3 (03:34→20:45)
[2018-01-21] MEDS: MORPHINE SULFATE 4mg INJECTION IVP PRN ×3 (03:42→15:21)
[2018-01-21] MEDS: NS with KCL 20 mEq 1,000 ML IV SCH ×3 (05:27→15:23)
[2018-01-21] MEDS: Oxycodone CR 20 MG TABLET PO PRN ×2 (10:22→21:31)
[2018-01-21] MEDS: SENNA + DOCUSATE TABLET PO SCH ×2 (10:25→20:46)
[2018-01-21] MEDS: PANTOPRAZOLE 40 MG INJECTION IVP SCH (10:26)
[2018-01-21] MEDS: ENOXAPARIN 40 MG/0.4 ML INJECTION SQ SCH (10:26)
[2018-01-21] MEDS: POLYETHYL GLYCOL 3350 17gm PACKET PO SCH ×2 (10:35→20:47)
--- NOTE | 2018-01-21 11:41 | Progress Note ---
DATE OF VISIT 01/21/2018 REASON FOR VISIT Covering surgical care for Dr. Grubbs. SUBJECTIVE Maryann is doing well this morning but continues to complain of some left-sided abdominal pain. She has been having a few more stools but she says that these have been small amounts and have had some blood with the stools. Her nurse said that the night nurse reported passage of a small amount of clot once overnight. She has been taking very minimal oral intake with her clear liquids. OBJECTIVE VITAL SIGNS: Afebrile with stable vitals on room air. GENERAL: The patient is awake and alert, in no acute distress. ABDOMEN: Soft, distended, tender more in the left abdomen. Nontender in the right. LABORATORY DATA White blood cell count 16.1 with 69% neutrophils and 13% bands. Her bands are down from 22%. IMPRESSION 1. 63-year-old female with a history of advanced cervical cancer receiving Avastin therapy. She presented for severe abdominal pain and abdominal pain continues to improve. 2. Constipation - some ongoing stools. 3. Rectal bleeding - likely hemorrhoidal in origin. PLAN 1. I will advance Maryann to a full liquid diet so that she can try to get some more calories. I will also order nutritional supplements so that she can hopefully get some more oral protein. 2. Continue to follow abdominal pain. 3. Continue Cipro and Flagyl for treatment of possible colitis. This had been present on admission. [facility]
--- NOTE | 2018-01-21 15:09 | Progress Note ---
- Date 01/21/18 Subjective: Maryann is seen today in follow up. She is looking much more relaxed and comfortable compared to yesterday. She is up in the chair with her daughter and sisters at her side. She is tolerating PO intake better today without feeling "full/gassy". She did have one BM this am that has some red blood present. Noted to have some edema in thighs. Objective Vital signs: Temperature 96.7 F L 01/21/18 12:00 Pulse Rate 92 01/21/18 12:00 Respiratory Rate 18 01/21/18 12:00 Blood Pressure 138/81 01/21/18 12:00 Pulse Oximetry 93 01/21/18 12:00 Height/Weight/BMI: Height 1.63 m Weight 57.7 kg Body Mass Index 21.8 - Constitutional Present: no acute distress, well nourished, well developed - Routine HEENT Exam Eye: Present: EOMI ENT: Present: mucous membranes moist, dentition normal - Routine Respiratory Exam Present: CTA bilaterally. Absent: wheezes - Routine Cardiovascular Exam Present: RRR, S1, S2. Absent: murmur - Routine Abdominal Exam Present: soft, normoactive bowel sounds, non distended. Absent: tenderness - Routine Extremities Exam Present: normal capillary refill - Routine Skin Exam Present: dry, warm - Routine Neurological Exam Present: alert, oriented X3, CN II-XII intact - Routine Lymphatic Exam Lymphatic: Absent: adenopathy - Routine Psychiatric Exam Present: normal affect Results - Labs CBC & Chem 7: 01/21/18 06:06 01/21/18 06:06 Microbiology Results: Microbiology 01/16/18 11:32 Port/Picc Blood Culture - Final No Growth After 5 Days 01/16/18 11:35 Port/Picc Blood Culture - Final No Growth After 5 Days Assessment and Plan (1) Sepsis Current visit: Yes Status: Acute Assessment and Plan: Impression Severe sepsis Abdominal pain, severe Neutropenia, acute Constipation Hyperglycemia, acute Macrocytosis Hypertension Cervical cancer, hx of chemotherapy/XRT Hypokalemia - (Not POA) Nausea/vomiting Anemia (Not POA) Plan Continue with IV Cipro and Flagyl for antimicrobial coverage BM this morning did have presence of blood. Hgb remains stable. Will decrease IV fluids to 75ml/hr given edema in thighs. Add daily weight checks. Continue on current bowel regimen as well as scheduled Reglan 10mg IV every 6 hours Has been able to decrease opiate use today. Has not used Canadensis since last evening. Continue to wean off opioids as this will help with bowel motivation. Patient does feel like she is getting pain and abdominal muscle spasm control with Flexeril Patient would like to try a muscle relaxer as she feels that she has a lot of abdominal wall spasms. Continue to follow electrolytes, check phosphorus and BMP tomorrow morning Encourage ambulation QID Overall appears to be improving from yesterday DVT Prophylaxis: SCD's GI Prophylaxis: Protonix Resuscitation Status: Full Code - Time spent with patient Time with patient PN: 25 minutes - Physician Narrative Physician: Linus Biswas MD Narrative: Date: 01/21/18 Time: 1607 Have independently interviewed and examined patient. Chart reviewed. Case discussed with my SUPERVISOR CLAIMS. Care plan developed with my supervision; agree with above. Doing okay today. Still with significant pain-trying to stay on top of pain with medications. Up in chair most of day. Ambulated some in room. Not passing flatus. No nausea. Appetite still decreased. Breathing well-not congested or SOA. Urinating well. Lungs: decreased, no distress CV: regular AB: distended, mild/diffuse tenderness BS decreased MSE: awake, tired appearing Plan: Decrease IVF. Continue antibiotics. Continue with bowel motivation- encouraged use of Dulcolax suppositories. Encourage ambulation. Hospital Course Summary Disclaimer: The visit summary below is not to be considered part of the above Progress Note. Hospital Course: 01/15/18 Admitted with abdominal pain and possible colitis. Cipro and Flagyl initiated. 01/16/18 Patient presented with severe abdominal pain, fever, and subsequent identification of lactic acidosis. CT abdomen was initially interpreted as having changes of sigmoid colitis not confirmed on final reading. Abdominal coverage with Cipro and Flagyl initiated in conjunction with IV fluids. Blood cultures have been subsequently drawn with one drawn through PAC. Marked leukocytosis with drop in ANC noted this morning; white count repeated and not as low as initially described. Discussed with Dr. Hankins-not expected with recent course of Avastin. Suspect leukocytosis manifestation of infection although source of infection unclear. Chest x-ray to be obtained although lung bases clear on CT. Enemas initiated for constipation and lactulose added orally for management of constipation. Dr. Grubbs consulted to assist in management of abdominal symptoms. Potassium being replaced IV; vitamin B-12/TSH/folic acid will be checked in evaluation of macrocytosis. Hyperglycemia likely stress [id number] ordered, corrective insulin if needed. 01/17/18 Blood cultures negative after 1 day, continue abdominal coverage with Cipro/ Flagyl. Exam slightly improved. Gastrografin without evidence of mass, continue laxatives-increase MiraLAX to 34 g 4 times a day given intolerance of lactulose. May require colonoscopy prep to clear colon. Enemas/Dulcolax suppositories prn. Potassium replaced IV throughout the day, continuing this evening. Continue IV hydration. B-12 pending; TSH normal. Accu-Cheks minimally elevated-consistently under 150 today, discontinue. 01/18/18 BC negative at 2 days; continue cipro/flagyl. BM frequency increasing and abdominal pain improving. Tolerating oral fluids. Continue high-dose MirLAX K 3.5; cont NS with KCl. May need additional IV replacement. B12 508. 01/19/18 BC negative at 2 days - 72 hour results to be posted later this am; continue cipro/flagyl at this time. WBC normal; bands up slightly from 20 to 22%. Afebrile. Increasing distention and abdominal pain today. Tolerating oral fluids. Continue high-dose MirLAX K 3.4; cont NS with KCl. K bolus ordered given increased abdominal symptoms today. Mg 2.1. Phos low yesterday at 2.3 - reassess this am. 01/20/18 Continue with IV Cipro and Flagyl for treatment of possible colitis. Increase aggressive bowel motivation- will continue on current regimen of scheduled MiraLAX twice a day as well as senna +2 twice a day. Also give 2 doses of scheduled suppositories, one this afternoon and 1 at at bedtime. Scheduled Reglan 10mg IV every 6 hours Lengthy discussion, spent 30 minutes at the bedside with patient and sisters explaining ileus process, causes of pain, importance of bowel motivation and symptom control. Patient would like to try a muscle relaxer as she feels that she has a lot of abdominal wall spasms. Recommended minimizing opiate use. Patient does feel at times that she needs IV morphine. We discussed either using Canadensis or morphine for breakthrough pain not both agents. Continue to follow electrolytes, check magnesium and BMP tomorrow morning Will recheck abdominal x-ray flat and upright tomorrow am Encourage ambulation QID 01/21/18 Continue with IV Cipro and Flagyl for antimicrobial coverage BM this morning did have presence of blood. Hgb remains stable. Will decrease IV fluids to 75ml/hr given edema in thighs. Add daily weight checks. Continue on current bowel regimen as well as scheduled Reglan 10mg IV every 6 hours Has been able to decrease opiate use today. Has not used Canadensis since last evening. Continue to wean off opioids as this will help with bowel motivation. Patient does feel like she is getting pain and abdominal muscle spasm control with Flexeril Patient would like to try a muscle relaxer as she feels that she has a lot of abdominal wall spasms. Continue to follow electrolytes, check phosphorus and BMP tomorrow morning Encourage ambulation QID Overall appears to be improving from yesterday
[2018-01-21] MEDS: HYDROCODONE/APAP 5mg/325mg TABLET PO PRN (16:00)
[2018-01-21] MEDS: AMLODIPINE 10 MG TABLET PO SCH (16:07)
[2018-01-21] MEDS: ATENOLOL 50 MG TABLET PO SCH (20:46)
[2018-01-22] MEDS: NS with KCL 20 mEq 1,000 ML IV SCH (02:16)
[2018-01-22] MEDS: METOCLOPRAMIDE 10mg/2ml INJECTION IVP SCH ×2 (02:16→08:09)
[2018-01-22] MEDS: HYDROCODONE/APAP 5mg/325mg TABLET PO PRN ×4 (02:21→18:44)
[2018-01-22] MEDS: MetroNIDAZOLE PB 500 MG/100 ML BAG IV SCH (03:37)
[2018-01-22] MEDS: ENOXAPARIN 40 MG/0.4 ML INJECTION SQ SCH (08:10)
[2018-01-22] MEDS: PANTOPRAZOLE 40 MG INJECTION IVP SCH (08:10)
[2018-01-22] MEDS: SENNA + DOCUSATE TABLET PO SCH (08:10)
[2018-01-22] MEDS: POLYETHYL GLYCOL 3350 17gm PACKET PO SCH (08:10)
[2018-01-22] MEDS ORDERED: FUROSEMIDE 20 MG/2 ML INJECTION IVP ONE (08:50)
[2018-01-22] MEDS: Oxycodone CR 20 MG TABLET PO PRN (08:56)
[2018-01-22] MEDS ORDERED: SALINE FLUSH 10ml SYRINGE ONE (11:24)
[2018-01-22] MEDS ORDERED: IOHEXOL 300mg/ml 100ml INJECTION ONE (11:24)
[2018-01-22] MEDS ORDERED: VANCOMYCIN - PHARMACY CONSULT MC ONE (11:55)
[2018-01-22] MEDS ORDERED: ERTAPENEM 1 G in NS 100 ML IV SCH (12:00)
--- NOTE | 2018-01-22 12:07 | Progress Note ---
- Date 01/22/18 Subjective: Maryann is seen today in follow-up. She is seen with her at bedside, and he participates in conversation. I have discussed with the RN today several times prior to this visit. Her IV fluids were stopped this morning, and Lasix was given due to hyperkalemia and elevated weight with edema. In addition, RN just reported that her oxygen level has decreased to 88-89% on room air, and I have instructed her to start oxygen. Maryann reports that overall, she continues to not feel well. She states that her abdominal pain is a bit better, but overall she is not feeling very well. She is not vomiting. Her bowels are moving, however small amounts and stools remained bloody. She attributes bloody stools to hemorrhoids. She has increasing intra-abdominal distention, and abdomen is very taut to exam. She also has progressive lower extremity edema extending into the thighs. Her reports that she has recently been undergoing chemotherapy for "uterine cancer". Normally follows with Dr. Hankins in [place], and he is concerned that she may need to be transferred in order to see her normal specialist. Maryann is a bit reluctant to transfer at this point, however. I have discussed with them tentatively. White blood cell count continues to elevate, concerning for infection, which we discussed. She does endorse difficulty in taking a deep breath, and she is able to get to about 900 mL on incentive spirometry. I instructed her on the use and importance of incentive spirometry, and the role of atelectasis. She does not feel significantly short of breath, but more that she has difficulty in taking a deep breath. We discussed her edema, and plan of care regarding that. She does endorse pelvic pain and discomfort, worse with movement. She does report that this pain radiates up into the right side of her abdomen at times. She is voiding, and feels that she is emptying her bladder without difficulty. Again, edema is concerning and we discussed that as well. Chart is reviewed as well for collateral information. Objective Vital signs: Temperature 96.2 F L 01/22/18 08:00 Pulse Rate 75 01/22/18 08:00 Respiratory Rate 12 01/22/18 08:00 Blood Pressure 125/75 01/22/18 08:00 Pulse Oximetry 88 L 01/22/18 08:00 Height/Weight/BMI: Height 1.63 m Weight 63.163 kg Body Mass Index 21.8 Comments: Gen.: Patient is awake, alert, appears chronically ill. Head: Atraumatic, normocephalic. ENT: No external abnormalities. Neck: Supple. No JVD. Cardiovascular: S1, S2. Regular rate and rhythm. Heart rate is controlled. Pulmonary: Lungs are very diminished bilaterally. No crackles or wheezes. She is mild to moderately short of air due to decreased lung expansion. Abdomen: Firm, taut, distended. She is not overly tender. Endorses improvement in pain. Hypoactive bowel sounds 4 quadrants. Positive anasarca. Extremities: Marked pitting lower extremity edema up into the thigh and hip area. Extremities are warm. Faint mottling of bilateral knees. Neuro: Grossly intact as tested. Results - Labs CBC & Chem 7: 01/22/18 13:55 01/22/18 04:06 Microbiology Results: Microbiology 01/16/18 11:32 Port/Picc Blood Culture - Final No Growth After 5 Days 01/16/18 11:35 Port/Picc Blood Culture - Final No Growth After 5 Days - Imaging and Cardiology Chest x-ray Status: image reviewed by me Additional comments: CXR/Abd Impression: Interval decrease in bowel gas could represent fluid-filled bowel loops. . Assessment and Plan (1) Sepsis Current visit: Yes Status: Acute Assessment and Plan: Impression Severe sepsis Abdominal pain, severe Neutropenia, acute Constipation Hyperglycemia, acute Macrocytosis Hypertension Cervical cancer, hx of chemotherapy/XRT Hypokalemia - (Not POA) Nausea/vomiting Anemia (Not POA) Plan Increasing intra-abdominal distention is concerning for diffuse malignancy. Will assess CEA, CA 125, CRP. Urgent CT of the abdomen and pelvis has been ordered after discussion with Dr. Biswas. Due to progressive leukocytosis, will change antibiotic therapy to ertapenem and vancomycin. Consult pharmacy for vancomycin management. Patient does endorse intermittent hiccups, and that, in conjunction with elevated INR is concerning for hepatic involvement. There Is no notable mass on liver per CT. Continue diet as tolerated, this patient is not vomiting. IV fluids DC'd due to edema and shortness of air. She did receive 1 dose of Lasix this morning, and we'll schedule IV diuretics for now. Potassium was not ordered, as her potassium level was elevated. Small, bloody stools continue - hemoglobin is stable. Blood Pressure has been reviewed, I did decrease her afternoon amlodipine due to an increase in diuretics. Blood cultures, urine, and past documentation and imaging have been reviewed. Discussed with RN, Dr. Biswas, inpatient and her extensively today. Greater than 50 minutes was spent in total care time of this patient. Greater than 50% spent in counseling and coordination of care. Await CT results. We may need to consider transfer to [place] to return her care to her oncologist. DVT Prophylaxis: Lovenox GI Prophylaxis: Protonix Resuscitation Status: Full Code - Time spent with patient Time with patient PN: 50 minutes Coordination of Care: >50% of visit spent providing counseling/coordination of care - Physician Narrative Physician: Linus Biswas MD Narrative: Date: 01/22/18 Time: 1545 Have independently interviewed and examined pt. Chart reviewed. Case discussed with my [employer], Sx, and family. Care plan developed with my supervision; agree with above. Feels more full/bloated to ab. Increased distention. Pain actually doing better- not hurting as much, feels pain medications more helpful. Not having nausea. Oral intake improving-able to take more in at a time. Not having nausea or increased pain with oral intake. Passing gas and stool. Urinating well-no pain/ burning with urination. Breathing feels more short-hard to take deep breath due to ab distension. Little cough. Strength decreased, but able to move in room with assistance. Not having f/c. Lungs: decreased bilaterally, shallow but unlabored breathing. CV: regular AB: distended, BS decreased. Mild tenderness, but I'm not appreciating rebound. EXT: +2 BLE MSE: awake alert appropriate GEN: looks weak/tired Plan: CT scan obtained showing potential for bowel perforation. Antibiotics changed to ertapenem and vancomycin for improved GI coverage. IV stopped by my [employer] due to increasing edema - Lasix given. Will stop Lasix and Norvasc due to concern for potential hypotension developing. Discussed case with Sx who worries surgical intervention would be beyond the scope of care abilities at [facility]. With need for transfer, family would like [facility] in as her oncologist ( Dr Radu Hankins) is there and all her prior surgeries and treatments for her cancer has been there. Discussion with community health coordinator in progress. Clinically appearing stable at this time, but CT finding very worrisome. Hospital Course Summary Disclaimer: The visit summary below is not to be considered part of the above Progress Note. Hospital Course: 01/15/18 Admitted with abdominal pain and possible colitis. Cipro and Flagyl initiated. 01/16/18 Patient presented with severe abdominal pain, fever, and subsequent identification of lactic acidosis. CT abdomen was initially interpreted as having changes of sigmoid colitis not confirmed on final reading. Abdominal coverage with Cipro and Flagyl initiated in conjunction with IV fluids. Blood cultures have been subsequently drawn with one drawn through PAC. Marked leukocytosis with drop in ANC noted this morning; white count repeated and not as low as initially described. Discussed with Dr. Hankins-not expected with recent course of Avastin. Suspect leukocytosis manifestation of infection although source of infection unclear. Chest x-ray to be obtained although lung bases clear on CT. Enemas initiated for constipation and lactulose added orally for management of constipation. Dr. Grubbs consulted to assist in management of abdominal symptoms. Potassium being replaced IV; vitamin B-12/TSH/folic acid will be checked in evaluation of macrocytosis. Hyperglycemia likely stress [id number] ordered, corrective insulin if needed. 01/17/18 Blood cultures negative after 1 day, continue abdominal coverage with Cipro/ Flagyl. Exam slightly improved. Gastrografin without evidence of mass, continue laxatives-increase MiraLAX to 34 g 4 times a day given intolerance of lactulose. May require colonoscopy prep to clear colon. Enemas/Dulcolax suppositories prn. Potassium replaced IV throughout the day, continuing this evening. Continue IV hydration. B-12 pending; TSH normal. Accu-Cheks minimally elevated-consistently under 150 today, discontinue. 01/18/18 BC negative at 2 days; continue cipro/flagyl. BM frequency increasing and abdominal pain improving. Tolerating oral fluids. Continue high-dose MirLAX K 3.5; cont NS with KCl. May need additional IV replacement. B12 508. 01/19/18 BC negative at 2 days - 72 hour results to be posted later this am; continue cipro/flagyl at this time. WBC normal; bands up slightly from 20 to 22%. Afebrile. Increasing distention and abdominal pain today. Tolerating oral fluids. Continue high-dose MirLAX K 3.4; cont NS with KCl. K bolus ordered given increased abdominal symptoms today. Mg 2.1. Phos low yesterday at 2.3 - reassess this am. 01/20/18 Continue with IV Cipro and Flagyl for treatment of possible colitis. Increase aggressive bowel motivation- will continue on current regimen of scheduled MiraLAX twice a day as well as senna +2 twice a day. Also give 2 doses of scheduled suppositories, one this afternoon and 1 at at bedtime. Scheduled Reglan 10mg IV every 6 hours Lengthy discussion, spent 30 minutes at the bedside with patient and sisters explaining ileus process, causes of pain, importance of bowel motivation and symptom control. Patient would like to try a muscle relaxer as she feels that she has a lot of abdominal wall spasms. Recommended minimizing opiate use. Patient does feel at times that she needs IV morphine. We discussed either using [place] or morphine for breakthrough pain not both agents. Continue to follow electrolytes, check magnesium and BMP tomorrow morning Will recheck abdominal x-ray flat and upright tomorrow am Encourage ambulation QID 01/21/18 Continue with IV Cipro and Flagyl for antimicrobial coverage BM this morning did have presence of blood. Hgb remains stable. Will decrease IV fluids to 75ml/hr given edema in thighs. Add daily weight checks. Continue on current bowel regimen as well as scheduled Reglan 10mg IV every 6 hours Has been able to decrease opiate use today. Has not used [place] since last evening. Continue to wean off opioids as this will help with bowel motivation. Patient does feel like she is getting pain and abdominal muscle spasm control with Flexeril Patient would like to try a muscle relaxer as she feels that she has a lot of abdominal wall spasms. Continue to follow electrolytes, check phosphorus and BMP tomorrow morning Encourage ambulation QID Overall appears to be improving from yesterday 01/22/18 Increasing intra-abdominal distention is concerning for diffuse malignancy. Will assess CEA, CA 125, CRP. Urgent CT of the abdomen and pelvis has been ordered after discussion with Dr. Biswas. Due to progressive leukocytosis, will change antibiotic therapy to ertapenem and vancomycin. Consult pharmacy for vancomycin management. Patient does endorse intermittent hiccups, and that, in conjunction with elevated INR is concerning for hepatic involvement. There Is no notable mass on liver per CT. Continue diet as tolerated, this patient is not vomiting. IV fluids DC'd due to edema and shortness of air. She did receive 1 dose of Lasix this morning, and we'll schedule IV diuretics for now. Potassium was not ordered, as her potassium level was elevated. Small, bloody stools continue - hemoglobin is stable. Blood Pressure has been reviewed, I did decrease her afternoon amlodipine due to an increase in diuretics. Blood cultures, urine, and past documentation and imaging have been reviewed. Discussed with RN, Dr. Biswas, inpatient and her extensively today. Greater than 50 minutes was spent in total care time of this patient. Greater than 50% spent in counseling and coordination of care. Await CT results. We may need to consider transfer to [place] to return her care to her oncologist. CT scan obtained showing potential for bowel perforation. Antibiotics changed to ertapenem and vancomycin for improved GI coverage. IV stopped by my [employer] due to increasing edema - Lasix given. Will stop Lasix and Norvasc due to concern for potential hypotension developing. Discussed case with Sx who worries surgical intervention would be beyond the scope of care abilities at [facility]. With need for transfer, family would like [facility] in as her oncologist (Dr Radu Hankins) is there and all her prior surgeries and treatments for her cancer has been there. Discussion with community health coordinator in progress. Clinically appearing stable at this time, but CT finding very worrisome.
[2018-01-22 13:09] VITALS: O2SAT 95
[2018-01-22] MEDS: CYCLOBENZAPRINE 10 MG TABLET PO PRN (13:23)
--- NOTE | 2018-01-22 13:31 | Pharmacy Consult-Antibiotics ---
Pharmacy Consult-Vancomycin - Laboratory Information WBC 20.5 T/MM3 (4.5-11.0) H 01/22/18 04:06 BUN 45.0 MG/DL (7-17) H 01/22/18 04:06 Creatinine 1.1 mg/dL (0.7-1.2) D 01/22/18 04:06 - Consult Information VANCOMYCIN CONSULT: Dx: ABDOMINAL PAIN/SEPSIS Current Renal Fx: SCr = 1.1 mg/dl. Will give Vancomycin 1500 mg IV q24hrs. Will continue to monitor and adjust regimen to maintain therapeutic levels. Thank you. Kirstie Bey, PharmD
[2018-01-22] MEDS ORDERED: VANCOMYCIN 1,500 MG in NS 500 ML IV SCH (14:00)
[2018-01-22] MEDS ORDERED: AMLODIPINE 5 MG TABLET PO SCH (15:00)
[2018-01-22 16:04] VITALS: BP 125/69; PULSE 89; RESP 12; TEMP 96.7
[2018-01-22] MEDS ORDERED: FUROSEMIDE 40 MG/4 ML INJECTION IVP SCH (17:00)
[2018-01-22] MEDS ORDERED: NS 1,000 ML IV SCH (17:15)
--- NOTE | 2018-01-22 18:26 | Discharge Summary ---
Discharge Information Date of admission: 01/15/18 19:22 Anticipated date of discharge: 01/22/18 Attending Physician: Linus Biswas MD Primary care physician: Lio Rios DO Consults: Physician Consult: Jesse Grubbs Reason For Exam: abdominal pain - Discharge Diagnosis (1) Sepsis Status: Acute Admission diagnosis Colitis Sepsis Discharge diagnosis Severe sepsis Intraperitoneal free air, suspicious for bowel perforation and peritonitis Associated conditions and complications Abdominal pain, severe Neutropenia, acute Constipation Hyperglycemia, acute Macrocytosis Hypertension Cervical cancer, hx of chemotherapy/XRT Hypokalemia - (Not POA) Nausea/vomiting Anemia (Not POA) - Laboratory Labs: Admit Lab 01/15/18 17:23 WBC 9.4 Hgb 13.4 Hct 42.1 MCV 108.8 H Plt Count 218 Neutrophils % (Manual) 84.0 H Band Neutrophils % 5.0 Reactive Lymphs % 1.0 H Monocytes % (Manual) 9.0 Metamyelocytes % 1.0 H Admit Lab 01/15/18 01/15/18 17:23 20:41 Sodium 143 Potassium 4.0 Chloride 101 Carbon Dioxide 26 Anion Gap 16 H BUN 17.0 Creatinine 0.7 GFR Calculation 85 BUN/Creatinine Ratio 24 Glucose 223 H Calculated Osmolality 284 H Calcium 9.5 Total Bilirubin 0.60 Icterus Index < 2 AST 30 ALT 23 Alkaline Phosphatase 125 Total Protein 7.9 Albumin 4.4 Globulin 3.5 Albumin/Globulin Ratio 1.3 Plasma Lactate 3.4 H Laboratory Tests 01/22/18 01/22/18 13:55 13:55 Carcinoembryonic Ag 3.15 H CA 125 Antigen 55.8 H Laboratory Tests 01/17/18 03:55 TSH 0.90 Discharg Lab 01/22/18 01/22/18 16:05 16:05 Plasma Lactate 1.2 Procalcitonin 10.74 H* 01/22/18 16:05 01/22/18 04:06 - Microbiology Microbiology 01/22/18 16:05 Port/Picc Blood Culture - Preliminary Culture Initiated - Results Pending 01/22/18 16:14 Peripheral/Iv Start Blood Culture - Preliminary Culture Initiated - Results Pending 01/16/18 11:32 Port/Picc Blood Culture - Final No Growth After 5 Days 01/16/18 11:35 Port/Picc Blood Culture - Final No Growth After 5 Days - Radiology Radiology: Date of Exam: 01/15/18 Type of Exam: CT abdomen pelvis w con FINDINGS: Lower Chest: The visualized portions of the lower lungs are well aerated. No focal airspace disease. The heart is normal in size without pericardial effusion. Abdomen: No intraperitoneal free air. Trace perihepatic and right paracolic gutter ascites. No focal rim-enhancing fluid collections. No lymphadenopathy. Liver: The liver enhances homogeneously without focal masses. Gallbladder and biliary: The gallbladder is surgically absent. Enlargement of the common bile duct likely secondary to postcholecystectomy state. No intrahepatic biliary ductal dilatation. Spleen: The spleen appears normal. Pancreas: The pancreas demonstrates homogeneous attenuation. Adrenal glands: The adrenal glands are normal in size and attenuation. Kidneys/ureters: The kidneys appear normal. The ureters are normal in course and caliber. GI tract: Moderate stool within the right and transverse colon. The stomach, small bowel, and colon appear otherwise grossly normal. The appendix is not seen with certainty however no significant pericecal inflammatory changes are seen to suggest acute appendicitis. Vascular structures: The aorta is normal in course and caliber with mild atherosclerotic calcifications noted. The mesenteric arterial and venous structures appear patent. Pelvis: Mild pelvic free fluid. No pelvic lymphadenopathy. Bladder: The bladder appears normal. Genital system: Calcified uterine fibroids. No adnexal mass appreciated. Skeletal structures and soft tissues: Mild degenerative spondylosis of the visualized spine. The visualized skeletal structures are otherwise grossly normal. IMPRESSION: 1. Trace ascites at the inferior margin of the liver, within the right paracolic gutter, and pelvis of indeterminate etiology, with no other acute intra-abdominal/pelvic process identified by contrast enhanced CT. 2. Calcified uterine fibroids. 3. Cholecystectomy with associated prominence of the common bile duct. Date of Exam: 01/16/18 Type of Exam: XR abdomen 2V Findings: Non-obstructive bowel gas pattern. Moderate colonic gas and stool. No intraperitoneal free air. Cholecystectomy clips noted. Degenerative spondylosis of the visualized spine. Calcified pelvic phleboliths. No acute osseous abnormality identified. The visualized lung bases appear clear. Impression: Moderate colonic gas and stool with a nonobstructive bowel gas pattern. Date of Exam: 01/16/18 Type of Exam: XR chest 1V Findings: Right IJ Port-A-Cath in place with tip in the right atrium. Lungs and airways: Mildly low lung volumes with associated subsegmental atelectasis. No other focal/confluent airspace consolidation. Normal pulmonary vasculature. Pleura: No pleural effusion or pneumothorax. Heart and mediastinum: The cardiomediastinal silhouette and great vessels are within normal limits. Osseous structures and soft tissues: No acute osseous abnormality is seen. Degenerative arthrosis of the shoulders. Impression: No acute cardiopulmonary process. Date of Exam: 01/17/18 Type of Exam: FL barium enema Block Cuber KUB: A single farmworker bulbs AP abdominal radiograph was obtained. A large amount of colonic gas is visualized, most marked in the left colon. A large amount of stool is noted in the ascending and transverse colon. Technique: Using fluoroscopic guidance and meticulous graded compression, a single contrast Gastrografin enema was performed. Fluoroscopic imaging was obtained in the right lateral, supine AP, LPO, and RPO positions. Due to AP abdominal radiographs were obtained after the administration of contrast. Findings: There is a large amount of residual stool in the colon, most marked in the ascending and transverse colon. The remainder of the exam is negative. No diverticulosis. There is there is no obvious mass. There is no obstruction. Impression: Large amount of residual stool in the colon. There is no obvious mass. Date of Exam: 01/18/18 Type of Exam: XR acute abdomen series FINDINGS: Small right pleural effusion with right lower lobe probable atelectasis. Left lung is clear. No pneumothorax. The heart size, pulmonary vasculature and mediastinum are within normal limits. Right IJ port catheter. There is no free air on the upright view. The bowel gas pattern is nonobstructive and nonspecific. Residual contrast material with air-fluid levels seen in the colon. Decreased colonic stool burden with a moderate amount remaining in the cecum. Calcified uterine fibroid. IMPRESSION: 1. Small right effusion. 2. No evidence of acute obstruction. Colonic ileus. Date of Exam: 01/19/18 Type of Exam: XR abdomen 2V Findings: Interval passage of most of the prior colonic contrast. No free air identified. Lung bases are grossly clear. Nondifferential air-fluid levels are again seen in small and large bowel. No abnormally dilated small bowel loops appreciated. Impression: Multiple nondifferential air-fluid levels suggesting an ileus. Date of Exam: 01/20/18 Type of Exam: XR acute abdomen series FINDINGS: The lungs are clear. There is no abnormal airspace opacity, pleural effusion or pneumothorax identified. Right IJ port catheter remains in place. The heart size, pulmonary vasculature and mediastinum are within normal limits. There is no free air on the upright view. Interval decrease in bowel gas with only a few small areas of colonic gas remaining. No abnormally dilated gas- filled bowel appreciated. Impression: Interval decrease in bowel gas could represent fluid-filled bowel loops. History of Present Illness HPI: Mrs. Moreno is a 63 y/o female currently being treated for cervical carcinoma at the [facility]. She's completed chemotherapy and radiation therapy and is now on maintenance chemotherapy with Avastin with last dose on 12/30/17. Patient presented to the emergency room yesterday evening complaining of severe abdominal pain starting yesterday morning. She additionally reported having no bowel movement for days with generalized abdominal bloating, nausea without emesis, and decreased oral intake in conjunction with impaired appetite. She described "pulling" stomach muscles while reaching for an item shopping yesterday. She denied fever, chills, or sweats but was noted to be febrile in the emergency room. She denied cough, sputum production, urinary frequency or dysuria. CT of the abdomen and pelvis obtained in the ED demonstrated mild ascites and possible changes in the sigmoid colon c/w colitis although went over read this morning the sigmoid changes were felt to be chronic. The patient was admitted yesterday evening and started on Cipro and Flagyl. Lactic acid was obtained and was elevated at 3.4 initially. For complete details of the H&P refer to that document. Objective Vital signs: Temperature 96.7 F L 01/22/18 16:00 Pulse Rate 89 01/22/18 16:00 Respiratory Rate 12 01/22/18 16:00 Blood Pressure 125/69 01/22/18 16:00 Pulse Oximetry 95 01/22/18 16:00 Height/Weight/BMI: Height 1.63 m Weight 63.163 kg Body Mass Index 21.8 Hospital Course This is a general summary of the patient's hospital course. For more details refer to the complete medical record. Hospital course: 01/15/18 Admitted with abdominal pain and possible colitis. Cipro and Flagyl initiated. 01/16/18 Patient presented with severe abdominal pain, fever, and subsequent identification of lactic acidosis. CT abdomen was initially interpreted as having changes of sigmoid colitis not confirmed on final reading. Abdominal coverage with Cipro and Flagyl initiated in conjunction with IV fluids. Blood cultures have been subsequently drawn with one drawn through PAC. Marked leukocytosis with drop in ANC noted this morning; white count repeated and not as low as initially described. Discussed with Dr. Hankins-not expected with recent course of Avastin. Suspect leukocytosis manifestation of infection although source of infection unclear. Chest x-ray to be obtained although lung bases clear on CT. Enemas initiated for constipation and lactulose added orally for management of constipation. Dr. Grubbs consulted to assist in management of abdominal symptoms. Potassium being replaced IV; vitamin B-12/TSH/folic acid will be checked in evaluation of macrocytosis. Hyperglycemia likely stress [id number] ordered, corrective insulin if needed. 01/17/18 Blood cultures negative after 1 day, continue abdominal coverage with Cipro/ Flagyl. Exam slightly improved. Gastrografin without evidence of mass, continue laxatives-increase MiraLAX to 34 g 4 times a day given intolerance of lactulose. May require colonoscopy prep to clear colon. Enemas/Dulcolax suppositories prn. Potassium replaced IV throughout the day, continuing this evening. Continue IV hydration. B-12 pending; TSH normal. Accu-Cheks minimally elevated-consistently under 150 today, discontinue. 01/18/18 BC negative at 2 days; continue cipro/flagyl. BM frequency increasing and abdominal pain improving. Tolerating oral fluids. Continue high-dose MirLAX K 3.5; cont NS with KCl. May need additional IV replacement. B12 508. 01/19/18 BC negative at 2 days - 72 hour results to be posted later this am; continue cipro/flagyl at this time. WBC normal; bands up slightly from 20 to 22%. Afebrile. Increasing distention and abdominal pain today. Tolerating oral fluids. Continue high-dose MirLAX K 3.4; cont NS with KCl. K bolus ordered given increased abdominal symptoms today. Mg 2.1. Phos low yesterday at 2.3 - reassess this am. 01/20/18 Continue with IV Cipro and Flagyl for treatment of possible colitis. Increase aggressive bowel motivation- will continue on current regimen of scheduled MiraLAX twice a day as well as senna +2 twice a day. Also give 2 doses of scheduled suppositories, one this afternoon and 1 at at bedtime. Scheduled Reglan 10mg IV every 6 hours Lengthy discussion, spent 30 minutes at the bedside with patient and sisters explaining ileus process, causes of pain, importance of bowel motivation and symptom control. Patient would like to try a muscle relaxer as she feels that she has a lot of abdominal wall spasms. Recommended minimizing opiate use. Patient does feel at times that she needs IV morphine. We discussed either using [place] or morphine for breakthrough pain not both agents. Continue to follow electrolytes, check magnesium and BMP tomorrow morning Will recheck abdominal x-ray flat and upright tomorrow am Encourage ambulation QID 01/21/18 Continue with IV Cipro and Flagyl for antimicrobial coverage BM this morning did have presence of blood. Hgb remains stable. Will decrease IV fluids to 75ml/hr given edema in thighs. Add daily weight checks. Continue on current bowel regimen as well as scheduled Reglan 10mg IV every 6 hours Has been able to decrease opiate use today. Has not used [place] since last evening. Continue to wean off opioids as this will help with bowel motivation. Patient does feel like she is getting pain and abdominal muscle spasm control with Flexeril Patient would like to try a muscle relaxer as she feels that she has a lot of abdominal wall spasms. Continue to follow electrolytes, check phosphorus and BMP tomorrow morning Encourage ambulation QID Overall appears to be improving from yesterday. 01/22/18 Increasing intra-abdominal distention is concerning for diffuse malignancy. Will assess CEA, CA 125, CRP. Urgent CT of the abdomen and pelvis has been ordered after discussion with Dr. Biswas. Due to progressive leukocytosis, will change antibiotic therapy to ertapenem and vancomycin. Consult pharmacy for vancomycin management. Patient does endorse intermittent hiccups, and that, in conjunction with elevated INR is concerning for hepatic involvement. There Is no notable mass on liver per CT. Continue diet as tolerated, this patient is not vomiting. IV fluids DC'd due to edema and shortness of air. She did receive 1 dose of Lasix this morning, and we'll schedule IV diuretics for now. Potassium was not ordered, as her potassium level was elevated. Small, bloody stools continue - hemoglobin is stable. Blood Pressure has been reviewed, I did decrease her afternoon amlodipine due to an increase in diuretics. Blood cultures, urine, and past documentation and imaging have been reviewed. Discussed with RN, Dr. Biswas, inpatient and her extensively today. Greater than 50 minutes was spent in total care time of this patient. Greater than 50% spent in counseling and coordination of care. Await CT results. We may need to consider transfer to [place] to return her care to her oncologist. CT scan obtained showing potential for bowel perforation. Antibiotics changed to ertapenem and vancomycin for improved GI coverage. IV stopped by my WILDLIFE MANAGER due to increasing edema - Lasix given. Will stop Lasix and Norvasc due to concern for potential hypotension developing. Discussed case with Sx who worries surgical intervention would be beyond the scope of care abilities at [facility]. With need for transfer, family would like [facility] in as her oncologist (Dr Radu Hankins) is there and all her prior surgeries and treatments for her cancer has been there. Discussion with transfer man in progress. Clinically appearing stable at this time, but CT finding very worrisome. Case discussed with Dr Arden Crockett at [facility]. Graciously agreed to accept patient in transfer. Will transfer via [facility]. See orders for details. Time spent with patient: discharge greater than 30 minutes Resuscitation Status: Full Code Discharge Plan - Discharge Disposition Discharge Date: 01/22/18 Disposition: 02 Acute Care Hosp, Other *Condition: Stable Reason For Visit (Visit label in EMR): Abd pain - Discharge Medications *Discharge Medications: New Hydrocodone/APAP 5/325 [[place] 5/325] 1 tab PO Q4H PRN tablet PRN Reason: Pain Metoclopramide [Reglan] 10 mg IVP Q6H PRN vial PRN Reason: Nausea Morphine Sulfate Inj 4 - 6 mg IVP Q4H PRN syringe PRN Reason: pain Ondansetron Inj [Zofran] 4 mg IVP Q6H PRN vial PRN Reason: Nausea &/Or Vomiting Pantoprazole IV [Protonix IV] 40 mg IVP DAILY vial Senna + Docusate [Senna Plus Tablet] 2 tab PO BID tablet Ertapenem [INVanz] 1 g IV DAILY vial Vancomycin [Vancocin] 1,500 mg IV Q24H vial Bisacodyl Supp [Dulcolax] 10 mg RECTALLY Q6H PRN supp PRN Reason: Constipation CALCIUM CARBONATE Chewable [Tums] 1,000 mg PO PRN PRN tab.chew PRN Reason: Dyspepsia Acetaminophen [Tylenol] 500 mg PO Q5H PRN tablet PRN Reason: Discomfort Cyclobenzaprine [Flexeril] 10 mg PO TID PRN tablet PRN Reason: Muscle Spasm PEG 3350 17gm PACKET [Miralax] 34 gm PO BID packet Continue Amlodipine [Norvasc] 10 mg PO 1500 ClonazePAM [Klonopin] 0.5 mg PO BID PRN PRN Reason: Anxiety Tramadol [Ultram] 100 mg PO Q6H PRN PRN Reason: Pain Atenolol [Tenormin] 50 mg PO HS Oxycodone HCl [Oxycontin] 60 mg PO BID PRN PRN Reason: Pain Sennosides [Senokot] 8.6 mg PO PRN - Discharge Packet/Instructions *Diet: NPO *Activity: As tolerated, up with assistance *Wound Care: MS, [place] prn *Expected Signs/Symptoms: Resolution of abdominal infection with care at [facility]. *Notify Physician if: Temp >100.4. Nausea/vomiting. Increased ab pain. *During Business Hours Contact: Nursing staff at [facility] *After Business Hours Contact: Nursing staff at [facility] *Pending Lab/Results: No Pending Lab - Referrals/Follow Up *Referrals/Follow Up: Arden Crockett [Other] (Will follow at [facility] for surgical care. ) - Patient Handouts Patient Handouts: Abdominal Pain (ED) - Dismissal Complete Discharge Instructions are:: Complete Physician Narrative - Narrative Physician: Linus Biswas MD Attestation Narrative: Date: 01/22/18 Time: 1821 I have independently interviewed and examined patient prior to discharge. See my progress note for details. Medically stable to discharge to [facility].
[2018-01-22] MEDS: ClonazePAM 0.5 MG TABLET PO PRN (18:44)
--- NOTE | 2018-01-23 08:11 | CT Scan Report ---
Indication: ab pain, leukocytosis PROCEDURE: CT abdomen pelvis w con: Encounter: Initial Comparison: January 15, 2018 Technique: Axial CT images were performed through the abdomen and pelvis after the administration of intravenous contrast. Coronal and sagittal two-dimensional reformats. Automated Exposure Control and Iterative Reconstruction dose reducing techniques were utilized. Contrast: Omnipaque 300 89 mL Findings: New moderate left and small right pleural effusions with compressive atelectasis. Similar lingular nodule. There is new large amount of free fluid in the abdomen with scattered moderate free intraperitoneal air seen in the anterior abdomen. The liver is unremarkable. The gallbladder is surgically absent. The spleen, pancreas and adrenal glands are stable. The kidneys are normal. There are dilated fluid-filled small bowel loops seen throughout the abdomen measuring up to 3.5 cm in diameter with no discrete transition point. There is a large amount of fluid seen throughout the colon. No lymphadenopathy is seen. Anasarca noted in the soft tissues. Bone windows are stable. Impression: 1. Visceral perforation with a large amount of free peritoneal fluid and free intraperitoneal air. Exact site of perforation is unclear on this exam. Emergent surgical consultation is recommended. 2. Volume overload with anasarca pleural effusions and ascites. 3. Diffuse dilatation of bowel with fluid distention may represent a reactive ileus. There is no clear transition point to suggest a site of small bowel obstruction. There is a preliminary report by [facility]. Case was discussed with Dr. Jon aguilera at 1400 on January 22, 2018. .
--- NOTE | 2018-01-23 09:25 | Progress Note ---
DATE OF VISIT 01/22/2018 REASON FOR VISIT Covering surgical care for Dr. Grubbs. SUBJECTIVE Maryann says that her abdominal pain actually feels better after a bowel movement following her CT scan today. She had had increase in her white count and more abdominal distention which prompted the hospitalist service to order a CT scan today. The CT scan came back as a possible perforation. Maryann did have a large bowel movement following the CT scan. OBJECTIVE VITAL SIGNS: Temperature 96.7. Pulse 89. Blood pressure 125/69. Respiratory rate 12. Oxygen saturation 95% on 2 liters nasal cannula. GENERAL: The patient is awake and alert. She is in no acute distress. She is seated in a wheelchair. ABDOMEN: Soft, distended, tender in the left upper quadrant but nontender in the right abdomen. LABORATORY DATA White blood cell count increased to 21.4 with 31% bands and 52% neutrophils. IMAGING CT scan the abdomen and pelvis was personally reviewed by me. It showed a large amount of free fluid with free air. I had discussed the study with Dr. Cardona of Radiology who could not determine an etiology for the perforation. IMPRESSION 1. 63-year-old female with a history of advanced cervical cancer receiving Avastin therapy. 2. Perforated viscus - It is unclear what the source of her perforation is. It is possible that it is related to her Avastin therapy. PLAN 1. I did explain the situation to Maryann and her as well as other family. I explained that perforation would require operative intervention. I advised that I did not feel that nonoperative management was likely to be successful given the Avastin therapy with a dose 4 weeks ago. 2. I explained that she could have an operation here in [place] and then be transferred to [place] for management of the complicated situation or that she appeared stable enough for transfer to [place] initially to be evaluated by her oncologists and care, likely including an operation, be performed in [place]. 3. Continue antibiotics. She has been changed to vancomycin and a carbapenem. 4. Following discussion of options, the patient but especially her family desired transferred to [place]. I did let Dr. Biswas know of their wishes. [facility]
== END 2018-01-22 19:40 | disposition short-term general hospital (02) | DRG 871 ==
LOC: ED 16:42 → SUATTDRO 19:22 → EDHOLD 19:22 → MED 20:05
PROVIDERS: ADMIT Emergency Medicine; ATTEND Hospitalist